=== PATIENT | female | born 2000 | race Two or more races ===

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

== ENCOUNTER 2022-03-11 16:25 | Emergency (ER) | payer OTHER ==
--- OUTSIDE RECORDS SUMMARY | 2022-03-11 16:28 | XMS REPORT | Continuity of Care Document ---
:2000 Author Organization [facility] t Address [address] [place] [address] Care Team Providers Name Role Phone Robert Angelo Attending Clinician Unavailable Payers Payer Name Policy Type Policy Number Effective Date Expiration Date S ource C1 [id number] [facility] (Active Duty) [facility] C1 [id number] [facility] ([facility]) [facility] C1 [id number] [facility] ([facility]) [facility] Problems Condition Condition Condition Status Onset Resolution Last Treating Co mments Source Name Details Category Date Date Treatment Clinician Date BETITO Problem Active Common (generaliz [facility] ed anxiety - [facility] disorder) [facility] [id number] PTSD Problem Active [facility] (post-trau [facility] matic - [facility] stress [facility] disorder) [facility] [id number] Current Problem Active Common moderate [facility] episode of - [facility] prior episode Allergies, Adverse Reactions, Alerts This patient has no known allergies or adverse reactions. Social History Social Habit Start Date Stop Date Quantity Comments Source History of Tobacco Use Co mmon [facility] Sex Assigned At Com mon [facility] Smoking Status Start Date Stop Date Source Never Smoker [facility] Medications Ordered Filled Start Stop Current Ordering Indication Dosage Frequency Signature Comments Components Source Medication Medication Date Date Medication? Clinician (SIG) Name Name Azithromyci Azithromyci 2020-05- QD Azithromyc n 250 MG n 250 MG 05-04 in 250 MG 00:00: 00:00 00 :00 Cymbalta 20 Cymbalta 20 No 1{capsu QD Cymbalta MG MG le} 20 MG DULoxetine DULoxetine No DULoxetine HCl 20 MG HCl 20 MG HCl 20 MG Cymbalta 20 Cymbalta 20 No 1{capsu QD Cymbalta MG MG le} 20 MG Meclizine Meclizine No Meclizine HCl HCl HCl Cymbalta 20 Cymbalta 20 No 1{capsu QD Cymbalta MG MG le} 20 MG Pantoprazol Pantoprazol No Pantoprazo e Sodium e Sodium le Sodium Meclizine Meclizine No Meclizine HCl HCl HCl Cymbalta 20 Cymbalta 20 No 1{capsu QD Cymbalta MG MG le} 20 MG Cymbalta 20 Cymbalta 20 No 1{capsu QD Cymbalta MG MG le} 20 MG DULoxetine DULoxetine No DULoxetine HCl 20 MG HCl 20 MG HCl 20 MG Pantoprazol Pantoprazol No Pantoprazo e Sodium e Sodium le Sodium Cymbalta 20 Cymbalta 20 No 1{capsu QD Cymbalta MG MG le} 20 MG Meclizine Meclizine No Meclizine HCl HCl HCl Cymbalta 20 Cymbalta 20 No 1{capsu QD Cymbalta MG MG le} 20 MG DULoxetine DULoxetine No DULoxetine HCl 20 MG HCl 20 MG HCl 20 MG ProAir HFA ProAir HFA No ProAir HFA Pantoprazol Pantoprazol No Pantoprazo e Sodium e Sodium le Sodium Meloxicam Meloxicam No 1{table QD Meloxicam 7.5 MG 7.5 MG t} 7.5 MG Cymbalta 20 Cymbalta 20 No 1{capsu QD Cymbalta MG MG le} 20 MG Meclizine Meclizine No Meclizine HCl HCl HCl Cymbalta 20 Cymbalta 20 No 1{capsu QD Cymbalta MG MG le} 20 MG DULoxetine DULoxetine No DULoxetine HCl 20 MG HCl 20 MG HCl 20 MG ProAir HFA ProAir HFA No ProAir HFA Pantoprazol Pantoprazol No Pantoprazo e Sodium e Sodium le Sodium Meloxicam Meloxicam No 1{table QD Meloxicam 7.5 MG 7.5 MG t} 7.5 MG Cymbalta 20 Cymbalta 20 No 1{capsu QD Cymbalta MG MG le} 20 MG Meclizine Meclizine No Meclizine HCl HCl HCl Cymbalta 20 Cymbalta 20 No 1{capsu QD Cymbalta MG MG le} 20 MG DULoxetine DULoxetine No DULoxetine HCl 20 MG HCl 20 MG HCl 20 MG ProAir HFA ProAir HFA No ProAir HFA Pantoprazol Pantoprazol No Pantoprazo e Sodium e Sodium le Sodium Meloxicam Meloxicam No 1{table QD Meloxicam 7.5 MG 7.5 MG t} 7.5 MG Cymbalta 20 Cymbalta 20 No 1{capsu QD Cymbalta MG MG le} 20 MG Meclizine Meclizine No Meclizine HCl HCl HCl Cymbalta 20 Cymbalta 20 No 1{capsu QD Cymbalta MG MG le} 20 MG DULoxetine DULoxetine No DULoxetine HCl 20 MG HCl 20 MG HCl 20 MG ProAir HFA ProAir HFA No ProAir HFA Pantoprazol Pantoprazol No Pantoprazo e Sodium e Sodium le Sodium Meloxicam Meloxicam No 1{table QD Meloxicam 7.5 MG 7.5 MG t} 7.5 MG DULoxetine DULoxetine No DULoxetine HCl 20 MG HCl 20 MG HCl 20 MG Meclizine Meclizine No Meclizine HCl HCl HCl Cymbalta 20 Cymbalta 20 No 1{capsu QD Cymbalta MG MG le} 20 MG Pantoprazol Pantoprazol No Pantoprazo e Sodium e Sodium le Sodium Meclizine Meclizine No Meclizine HCl HCl HCl Cymbalta 20 Cymbalta 20 No 1{capsu QD Cymbalta MG MG le} 20 MG Cymbalta 20 Cymbalta 20 No 1{capsu QD Cymbalta MG MG le} 20 MG Pantoprazol Pantoprazol No Pantoprazo e Sodium e Sodium le Sodium DULoxetine DULoxetine No DULoxetine HCl 20 MG HCl 20 MG HCl 20 MG Meclizine Meclizine No Meclizine HCl HCl HCl Cymbalta 20 Cymbalta 20 No 1{capsu QD Cymbalta MG MG le} 20 MG Cymbalta 20 Cymbalta 20 No 1{capsu QD Cymbalta MG MG le} 20 MG Pantoprazol Pantoprazol No Pantoprazo e Sodium e Sodium le Sodium DULoxetine DULoxetine No DULoxetine HCl 20 MG HCl 20 MG HCl 20 MG Meclizine Meclizine No Meclizine HCl HCl HCl Cymbalta 20 Cymbalta 20 No 1{capsu QD Cymbalta MG MG le} 20 MG Pantoprazol Pantoprazol No Pantoprazo e Sodium e Sodium le Sodium DULoxetine DULoxetine No DULoxetine HCl 20 MG HCl 20 MG HCl 20 MG Vital Signs Vital Name Observation Time Observation Value Comments Source height 2021-08-04 08:30:00 62 [in_i] [facility] weight 2021-08-04 08:30:00 129 [lb_av] [facility] temperature 2021-08-04 08:30:00 98.0 [degF] [facility] bmi 2021-08-04 08:30:00 23.59 kg/m2 [facility] blood pressure 2021-08-04 08:30:00 110 mm[Hg] [facility] - systolic [facility] blood pressure 2021-08-04 08:30:00 68 mm[Hg] [facility] - diastolic [facility] height 2021-04-29 11:20:00 62 [in_i] [facility] weight 2021-04-29 11:20:00 117 [lb_av] [facility] bmi 2021-04-29 11:20:00 21.4 kg/m2 [facility] height 2021-02-10 15:10:00 62 [in_i] [facility] weight 2021-02-10 15:10:00 117 [lb_av] [facility] temperature 2021-02-10 15:10:00 98.5 [degF] [facility] bmi 2021-02-10 15:10:00 21.40 kg/m2 [facility] height 2021-01-12 09:10:00 62 [in_i] [facility] weight 2021-01-12 09:10:00 117.1 [lb_av] [facility] temperature 2021-01-12 09:10:00 97.7 [degF] [facility] bmi 2021-01-12 09:10:00 21.42 kg/m2 [facility] oximetry 2021-01-12 09:10:00 98 % [facility] respiratory rate 2021-01-12 09:10:00 16 /min Comm on [facility] blood pressure 2021-01-12 09:10:00 111 mm[Hg] Common [facility] - systolic [facility] blood pressure 2021-01-12 09:10:00 66 mm[Hg] [facility] diastolic [facility] Procedures This patient has no known procedures. Encounters Start End Encounter Admission Attending Care Care Encounter Source Date/Time Date/Time Type Type Clinicians Facility Department ID 2021-10-01 Outpatient Angelo, STLMLC STLMLC [id number] Common 15:41:01 [facility]ly [facility] 2021-07-20 Outpatient Angelo, STLMLC STLMLC [id number] Common 14:35:01 [facility] 2021-06-08 Outpatient Angelo, STLMLC STLMLC [id number] Common 08:16:03 Robert [facility] 2021-05-27 Outpatient Angelo, STLMLC STLMLC [id number] Common 14:04:10 Robert [facility] 2021-05-27 Outpatient Angelo, STLMLC STLMLC [id number] Common 13:58:53 Robert [facility] 2021-05-27 Outpatient Angelo, STLMLC STLMLC [id number] Common 13:49:12 Robert [id number] [facility] 2021-05-27 Outpatient Angelo, STLMLC STLMLC [id number] Common 13:48:18 Robert [id number] [facility] 2021-05-27 Outpatient Angelo, STLMLC STLMLC [id number] Common 13:42:28 Robert [id number] [facility] 2021-05-27 Outpatient STLMLC STLMLC [id number] Common 13:41:33 [id number] [facility] 2021-09-29 2021-09-29 (TEL) STLMLC STLMLC [id number] Co mmon 00:00:00 00:00:00 [facility] 2021-08-13 2021-08-13 (TEL) STLMLC STLMLC [id number] Co mmon 00:00:00 00:00:00 [facility] 2021-08-05 2021-08-05 (TEL) STLMLC STLMLC [id number] Co mmon 00:00:00 00:00:00 [facility] 2021-08-04 2021-08-04 OFFICE STLMLC STLMLC [id number] Co mmon 00:00:00 00:00:00 VISIT NEW Spir it PT LEVEL 3 [facility] 2021-07-03 2021-07-03 (TEL) STLMLC STLMLC [id number] Co mmon 00:00:00 00:00:00 [facility] 2021-04-29 2021-04-29 OFFICE STLMLC STLMLC [id number] Co mmon 00:00:00 00:00:00 VISIT EST Spir it PT LEVEL 3 [facility] 2021-04-28 2021-04-28 (TEL) STLMLC STLMLC [id number] Co mmon 00:00:00 00:00:00 [facility] 2021-02-24 2021-02-24 (TEL) STLMLC STLMLC [id number] Co mmon 00:00:00 00:00:00 [facility] 2021-02-10 2021-02-10 OFFICE [facility] [id number] Co mmon 00:00:00 00:00:00 VISIT EST Spir it PT LEVEL 3 - [facility] 2021-01-12 2021-01-12 PREV VISIT [facility] [id number] Common 00:00:00 00:00:00 EST AGE [facility] 18-39 - [facility] Results Test Description Test Time Test Comments Results Result Comments Source Lipid Panel With LDL/HDL Ratio 2021-01-15 00:00:00 Test Item Value Reference Range Interpretation Comme nts Cholesterol, Total (test code = 3-3) 155 100-169 Triglycerides (test code = 2571-8) 48 0-89 HDL Cholesterol (test code = 5-9) 69 >39 UA/M w/rflx Culture, [id number] 00:00:00 Test Item Value Reference Range Interpretation Comments Specific Damon (test code = 1.023 1.005-1.030 2965-2) pH (test code = 5803-2) 5.0 5.0-7.5 Urine-Color (test code = 5778-6) Yellow Yellow Appearance (test code = 5767-9) Cloudy Clear WBC Esterase (test code = 5799-2) Negative Negative Protein (test code = 50758-0) Negative Negative/Trace Glucose (test code = 2349-9) Negative Negative Ketones (test code = 2514-8) Negative Negative Occult Blood (test code = 5794-3) Negative Negative Bilirubin (test code = 5770-3) Negative Negative Urobilinogen,Semi-Qn (test code = 0.2 0.2-1.0 57704-6) Nitrite, Urine (test code = Negative Negative 5802-4) Microscopic Examination (test code See below: = 03903-5) Urinalysis Reflex (test code = UNLOINC) Hemoglobin [id number] 00:00:00 Test Item Value Reference Range Interpretation Comments Hemoglobin A1c (test code = 4548-4) 5.3 4.8-5.6 Comp. Metabolic Panel (14) (CMP)2021-01-15 00:00:00 Test Item Value Reference Range Interpretation Comments Glucose (test code = 2345-7) 128 65-99 BUN (test code = 3094-0) 5 6-20 Creatinine (test code = 2160-0) 0.66 0.57-1.00 eGFR If NonAfricn Am (test code = 129 >59 93264-1) eGFR If Africn Am (test code = 51290-8) 149 >59 BUN/Creatinine Ratio (test code = 01-22 3097-3) Sodium (test code = 2951-2) 138 134-144 Potassium (test code = 2823-3) 4.3 3.5-5.2 Chloride (test code = 2075-0) 103 96-106 Carbon Dioxide, Total (test code = -2027-) Calcium (test code = 38583-8) 9.3 8.7-10.2 Protein, Total (test code = 2885-2) 7.2 6.0-8.5 Albumin (test code = 1751-7) 4.7 3.9-5.0 Globulin, Total (test code = 73355-6) 2.5 1.5-4.5 A/G Ratio (test code = 1759-0) 1.9 1.2-2.2 Bilirubin, Total (test code = 1975-2) 0.5 0.0-1.2 Alkaline Phosphatase (test code = 70 42-106 6768-6) AST (SGOT) (test code = 1920-8) 14 0-40 ALT (SGPT) (test code = 1742-6) 11 0-32 Uric Acid, [id number] 00:00:00 Test Item Value Reference Range Interpretation Comments Uric Acid (test code = 3084-1) 4.8 2.6-6.2 CBC With Differential/[id number] 00:00:00 Test Item Value Reference Range Interpretation Comments WBC (test code = 6690-2) 7.1 3.4-10.8 RBC (test code = 789-8) 4.46 3.77-5.28 Hemoglobin (test code = 718-7) 12.8 11.1-15.9 Hematocrit (test code = 4544-3) 38.9 34.0-46.6 MCV (test code = 787-2) 87 79-97 MCH (test code = 785-6) 28.7 26.6-33.0 MCHC (test code = 786-4) 32.9 31.5-35.7 RDW (test code = 788-0) 12.1 11.7-15.4 Platelets (test code = 777-3) 296 150-450 Neutrophils (test code = 770-8) 60 Not Estab. Lymphs (test code = 736-9) 30 Not Estab. Monocytes (test code = 5905-5) 4 Not Estab. Eos (test code = 713-8) 5 Not Estab. Basos (test code = 706-2) 1 Not Estab. Immature Cells (test code = UNLOINC) Neutrophils (Absolute) (test code = 4.3 1.4-7.0 751-8) Lymphs (Absolute) (test code = 731-0) 2.1 0.7-3.1 Monocytes(Absolute) (test code = 742-7) 0.3 0.1-0.9 Eos (Absolute) (test code = 711-2) 0.4 0.0-0.4 Baso (Absolute) (test code = 704-7) 0.1 0.0-0.2 Immature Granulocytes (test code = 0 Not Estab. 16618-0) Immature Grans (Abs) (test code = 0.0 0.0-0.1 83226-5) NRBC (test code = 34023-8) Hematology Comments: (test code = 49404-7) TSH reflex to [id number] 00:00:00 Test Item Value Reference Range Interpretation Comments TSH (test code = 34406-2) 1.070 0.450-4.500
[2022-03-11 17:42] LABS: Absolute Lymphocytes (CBC) 1.9 K/uL (0.7-4.9); Hematocrit 38.5 % (36.0-45.0); Lymphocytes % 30.6 % (15.3-44.8); MCV 87.6 fL (80-100); MPV 7.4 fL (7.6-11.3)
[2022-03-11 17:56] LABS: Albumin 3.9 g/dL (3.4-5.0); Bilirubin Total 0.4 mg/dL (0.2-1.0); Potassium 3.8 mmol/L (3.5-5.1); Protein, Total 7.8 g/dL (6.4-8.2)
[2022-03-11] MEDS ORDERED: ONDANSETRON 4 MG/2 ML VIAL ONE (17:57)
[2022-03-11] MEDS ORDERED: NA CHLORIDE 0.9% 1,000 ML ONE (17:57)
[2022-03-11 18:35] LABS: Urine Blood Negative (Negative); Urine Glucose Negative (Negative); Urine Protein Negative (Negative); Urine pH 8.5 (5.0-7.0)
[2022-03-11 18:55] LABS: Urine RBC <5 /HPF (None Seen)
--- NOTE | 2022-03-11 19:27 | EDPHYS ---
Physician Documentation [facility] Name: Sue Perdomo Age: 21 yrs Sex: Female : 2000 Arrival Date: 03/11/2022 Time: 16:28 Bed 24 Private MD: ED Physician Ezequiel Griffiths HPI: 03/11 18:02 This 21 yrs old Female presents to ER via Ambulatory with complaints of Vomiting. snw 18:02 The patient presents to the emergency department with nausea, vomiting. Onset: The snw symptoms/episode began/occurred suddenly, yesterday. The symptoms are aggravated by food . Severity of symptoms: At their worst the symptoms were moderate severe. It is unknown whether or not the patient has had similar symptoms in the past. The patient has not recently seen a physician. 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 - Social history:: Smoking status: Patient denies any tobacco usage or history of. ROS: 17:16 Constitutional: Negative for fever, chills, and weight loss, Eyes: Negative for injury, snw pain, redness, and discharge, ENT: Negative for injury, pain, and discharge, Neck: Negative for injury, pain, and swelling, Cardiovascular: Negative for chest pain, palpitations, and edema, Respiratory: Negative for shortness of breath, cough, wheezing, and pleuritic chest pain, Back: Negative for injury and pain, : Negative for injury, bleeding, discharge, and swelling, MS/Extremity: Negative for injury and deformity, Skin: Negative for injury, rash, and discoloration, Neuro: Negative for headache, weakness, numbness, tingling, and seizure, Psych: Negative for depression, anxiety, suicide ideation, homicidal ideation, and hallucinations. 17:16 Abdomen/GI: Positive for abdominal pain, vomiting. Exam: 17:15 Constitutional: This is a well developed, well nourished patient who is awake, alert, snw and in no acute distress. Head/Face: Normocephalic, atraumatic. Eyes: Pupils equal round and reactive to light, extra-ocular motions intact. Lids and lashes normal. Conjunctiva and sclera are non-icteric and not injected. Cornea within normal limits. Periorbital areas with no swelling, redness, or edema. ENT: Nares patent. No nasal discharge, no septal abnormalities noted. Tympanic membranes are normal and external auditory canals are clear. Oropharynx with no redness, swelling, or masses, exudates, or evidence of obstruction, uvula midline. Mucous membranes moist. Neck: Trachea midline, no thyromegaly or masses palpated, and no cervical lymphadenopathy. Supple, full range of motion without nuchal rigidity, or vertebral point tenderness. No Meningismus. Chest/axilla: Normal chest wall appearance and motion. Nontender with no deformity. No lesions are appreciated. Cardiovascular: Regular rate and rhythm with a normal S1 and S2. No gallops, murmurs, or rubs. Normal PMI, no JVD. No pulse deficits. Respiratory: Lungs have equal breath sounds bilaterally, clear to auscultation and percussion. No rales, rhonchi or wheezes noted. No increased work of breathing, no retractions or nasal flaring. Back: No spinal tenderness. No costovertebral tenderness. Full range of motion. Skin: Warm, dry with normal turgor. Normal color with no rashes, no lesions, and no evidence of cellulitis. MS/ Extremity: Pulses equal, no cyanosis. Neurovascular intact. Full, normal range of motion. Neuro: Awake and alert, GCS 15, oriented to person, place, time, and situation. Cranial nerves II-XII grossly intact. Motor strength 5/5 in all extremities. Sensory grossly intact. Cerebellar exam normal. Normal gait. Psych: Awake, alert, with orientation to person, place and time. Behavior, mood, and affect are within normal limits. 17:15 Abdomen/GI: Inspection: abdomen appears normal, Bowel sounds: normal, Palpation: abdomen is soft and non-tender. Vital Signs: 16:42 BP 115 / 62; Pulse 74; Resp 18; Temp 97.8; Pulse Ox 100% ; Weight 58.97 kg; Height 5 jh5 ft. 3 in. (160.02 cm); 16:53 BP 125 / 77; Pulse 72; Resp 18; Pulse Ox 99% on R/A; kb3 17:30 BP 103 / 64; Pulse 76; Resp 18; Pulse Ox 100% on R/A; kb3 18:30 BP 103 / 59; Pulse 66; Resp 16; Pulse Ox 100% on R/A; kb3 16:42 Body Mass Index 23.03 (58.97 kg, 160.02 cm) jh5 MDM: 16:48 Patient medically screened. snw 16:57 Data reviewed: vital signs, nurses notes. Data interpreted: Pulse oximetry: on room air snw is 100 %. Interpretation: normal. Counseling: I had a detailed discussion with the patient and/or guardian regarding: the historical points, exam findings, and any diagnostic results supporting the discharge/admit diagnosis. ED course: Pt's PCP is Dr. Angelo. 03/11 16:49 Order name: CBC with Diff; Complete Time: 17:45 snw 03/11 16:49 Order name: CMP; Complete Time: 18:01 snw 03/11 16:49 Order name: Lipase; Complete Time: 18:01 snw 03/11 16:49 Order name: Urine Microscopic Only; Complete Time: 18:56 snw 03/11 16:49 Order name: Flu; Complete Time: 18:06 snw 03/11 16:49 Order name: Test, Serum; Complete Time: 17:53 snw 03/11 16:49 Order name: IV Saline Lock; Complete Time: 17:49 snw 03/11 16:49 Order name: Labs collected and sent; Complete Time: 17:49 snw 03/11 18:35 Order name: Urine Dipstick-Ancillary; Complete Time: 18:35 EDMS Administered Medications: 18:11 Drug: NS 0.9% 1000 ml Route: IV; Rate: 1 bolus; Site: right antecubital; kb3 18:58 Follow up: IV Status: Completed infusion; IV Intake: 1000ml kb3 18:11 Drug: Zofran (Ondansetron) 4 mg Route: IVP; Site: right antecubital; kb3 18:58 Follow up: Response: Nausea is decreased kb3 Disposition Summary: 03/11/22 19:27 Discharge Ordered Location: Home snw Condition: Stable snw Diagnosis - Nausea with vomiting, unspecified snw Followup: snw - With: Emergency Department - When: As needed - Reason: Worsening of condition Followup: snw - With: Private Physician - When: 2 - 3 days - Reason: Recheck today's complaints, Continuance of care, Re-evaluation by your physician Discharge Instructions: - Discharge Summary Sheet snw - Nausea and Vomiting, Adult snw - Rehydration, Adult snw - Frio Diet snw Forms: - Work release form snw - Medication Reconciliation Form snw - Thank You Letter snw - Antibiotic Education snw - Prescription Opioid Use snw Prescriptions: - Zofran 4 mg Oral Tablet - take 1 tablet by ORAL route every 8 hours As needed; 20 tablet; Refills: 0, snw Product Selection Permitted Addendum: 03/15/2022 09:00 Co-signature as Attending Physician, Ezequiel Griffiths MD. r n Signatures: Dispatcher [employer] EDMS Quita Orozco, SWITCHBOARD INSPECTOR-C SWITCHBOARD INSPECTOR-Csnw Ezequiel Griffiths MD MD rn Rees, Jessica, RN RN jh5 Nuha Hawley, RN RN kb3
--- NOTE | 2022-03-11 19:27 | ER ---
Nurse's Notes [facility] Name: Sue Perdomo Age: 21 yrs Sex: Female : 2000 Arrival Date: 03/11/2022 Time: 16:28 Bed 24 Private MD: Diagnosis: Nausea with vomiting, unspecified Presentation: 03/11 16:42 Chief complaint: Patient states: vomiting with diarrhea since yesterday, denies fever, jh5 cough, CP. Coronavirus screen: Vaccine status: Patient reports receiving the 2nd dose of the covid vaccine. Client denies travel out of the [place] in the last 14 days. Ebola Screen: Patient negative for fever greater than or equal to 101.5 degrees Fahrenheit, and additional compatible Ebola Virus Disease symptoms Patient denies exposure to infectious person. Patient denies travel to an Ebola-affected area in the 21 days before illness onset. Initial Sepsis Screen: Does the patient meet any 2 criteria? No. Patient's initial sepsis screen is negative. Does the patient have a suspected source of infection? No. Patient's initial sepsis screen is negative. Risk Assessment: Do you want to hurt yourself or someone else? Patient reports no desire to harm self or others. 16:42 Method Of Arrival: Ambulatory [facility] 16:42 Acuity: PRUDENCIO 3 [facility] 17:00 Onset of symptoms was March 10, 2022. 3 Triage Assessment: 16:43 General: Appears in no apparent distress. uncomfortable, slender, well groomed, well jh5 developed, well nourished, Behavior is calm, cooperative, appropriate for age. Pain: Denies pain. GI: Reports diarrhea, nausea, vomiting. 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 - Social history:: Smoking status: Patient denies any tobacco usage or history of. Screenin:00 Abuse screen: Denies threats or abuse. Denies injuries from another. Nutritional 3 screening: No deficits noted. Tuberculosis screening: No symptoms or risk factors identified. Fall Risk None identified. Assessment: 17:00 General: Appears in no apparent distress. uncomfortable, Behavior is calm, cooperative, eh3 appropriate for age. Pain: Complains of pain in abdomen Pain does not radiate. Pain currently is 5 out of 10 on a pain scale. Quality of pain is described as aching, Pain began 1 day ago. Is continuous. Neuro: Level of Consciousness is awake, alert, obeys commands, Oriented to person, place, time, situation. Cardiovascular: Capillary refill < 3 seconds Patient's skin is warm and dry. Respiratory: Airway is patent Respiratory effort is even, unlabored, Respiratory pattern is regular, symmetrical. GI: Abdomen is flat, non-distended, Reports diarrhea, nausea, vomiting, started yesterday. Has not vomited since this morning, tolerated fluids and a light lunch. : No signs and/or symptoms were reported regarding the genitourinary system. EENT: No signs and/or symptoms were reported regarding the EENT system. Derm: No signs and/or symptoms reported regarding the dermatologic system. Musculoskeletal: No signs and/or symptoms reported regarding the musculoskeletal system. 17:30 Reassessment: Patient and/or family updated on plan of care and expected duration. Pain kb3 level reassessed. Patient is alert, oriented x 3, equal unlabored respirations, skin warm/dry/pink. 18:30 Reassessment: Patient and/or family updated on plan of care and expected duration. Pain kb3 level reassessed. Patient is alert, oriented x 3, equal unlabored respirations, skin warm/dry/pink. 19:30 Reassessment: Patient and/or family updated on plan of care and expected duration. Pain eh3 level reassessed. Patient is alert, oriented x 3, equal unlabored respirations, skin warm/dry/pink. Patient states feeling better. Vital Signs: 16:42 BP 115 / 62; Pulse 74; Resp 18; Temp 97.8; Pulse Ox 100% ; Weight 58.97 kg; Height 5 jh5 ft. 3 in. (160.02 cm); 16:53 BP 125 / 77; Pulse 72; Resp 18; Pulse Ox 99% on R/A; kb3 17:30 BP 103 / 64; Pulse 76; Resp 18; Pulse Ox 100% on R/A; kb3 18:30 BP 103 / 59; Pulse 66; Resp 16; Pulse Ox 100% on R/A; kb3 16:42 Body Mass Index 23.03 (58.97 kg, 160.02 cm) 5 ED Course: 16:28 Patient arrived in ED. rg4 16:42 Quita Orozco FNP-C is [facility]. snw 16:42 Ezequiel Griffiths MD is Attending Physician. snw 16:43 Triage completed. 5 16:43 Arm band placed on right wrist. 5 17:00 Patient has correct armband on for positive identification. Bed in low position. Call 3 light in reach. Side rails up X 1. Pulse ox on. NIBP on. Door closed. Noise minimized. Lights dimmed. Warm blanket given. 17:02 Nuha Hawley, RN is Primary Nurse. kb3 17:30 Inserted saline lock: 20 gauge in right antecubital area, using aseptic technique. 3 Blood collected. Administered Medications: 18:11 Drug: NS 0.9% 1000 ml Route: IV; Rate: 1 bolus; Site: right antecubital; kb3 18:58 Follow up: IV Status: Completed infusion; IV Intake: 1000ml kb3 18:11 Drug: Zofran (Ondansetron) 4 mg Route: IVP; Site: right antecubital; kb3 18:58 Follow up: Response: Nausea is decreased kb3 Intake: 18:58 IV: 1000ml; Total: 1000ml. kb3 Outcome: 19:27 Discharge ordered by . snw 20:20 Patient left the ED. 5 Signatures: Quita Orozco FNP-C [employer]-Carol Covarrubias rg4 Nataly Jain 5 Sandi Leija, RN RN 5 Hayley Darby, LARRY RN 3 Nuha Hawley, RN RN 3
[2022-03-11 20:58] VITALS: O2SAT 100
[2022-03-11 21:03] VITALS: BP 103/59
[2022-03-11 21:04] VITALS: TEMP 97.8
== END 2022-03-11 20:20 | disposition home or self-care (01) ==
LOC: ER 16:25
DX: R11.2 Nausea with vomiting, unspecified (principal); D64.9 Anemia, unspecified; J45.909 Unspecified asthma, uncomplicated
CPT/HCPCS: 96361; 85025; 36415; 84703; 83690; 80053; 87804 ×2; 96374; 99284; J7030; J2405; 81003; 81015

== ENCOUNTER 2022-05-04 04:21 | Emergency (ER) | payer OTHER ==
--- OUTSIDE RECORDS SUMMARY | 2022-05-04 04:24 | XMS REPORT | Continuity of Care Document ---
:2000 Author Organization [facility] t Address [address] [place] [address] Care Team Providers Name Role Phone Robert Angelo Attending Clinician Unavailable Payers Payer Name Policy Type Policy Number Effective Date Expiration Date S ource C1 [id number] [facility] (Active Duty) [facility] C1 [id number] [facility] (Active Duty[facility] C1 [id number] [facility] (Active Duty) [facility] Problems Condition Condition Condition Status Onset Resolution Last Treating Co mments Source Name Details Category Date Date Treatment Clinician Date BETITO Problem Active Common (generaliz [facility] ed anxiety - [facility] disorder) [facility] [id number] PTSD Problem Active Common (post-trau Spirit matic - [facility] stress [facility] disorder) [facility] [id number] Current Problem Active Common moderate Spirit episode of - [facility] major [facility] Center prior episode Allergies, Adverse Reactions, Alerts This patient has no known allergies or adverse reactions. Social History Social Habit Start Date Stop Date Quantity Comments Source History of Tobacco Use Co mmon [facility] Sex Assigned At Com mon [facility] Smoking Status Start Date Stop Date Source Never Smoker [facility] Medications Ordered Filled Start Stop Current Ordering [...] Comments Source height 2021-08-04 08:30:00 62 [in_i] [facility] weight 2021-08-04 08:30:00 129 [lb_av] [facility] temperature 2021-08-04 08:30:00 98.0 [degF] [facility] bmi 2021-08-04 08:30:00 23.59 kg/m2 [facility] blood pressure 2021-08-04 08:30:00 110 mm[Hg] [facility] systolic [facility] blood pressure 2021-08-04 08:30:00 68 mm[Hg] [facility] - diastolic [facility] height 2021-04-29 11:20:00 62 [facility]in_i[facility] weight 2021-04-29 11:20:00 117 [lb_av] [facility] bmi 2021-04-29 11:20:00 21.4 kg/m2 [facility] height 2021-02-10 15:10:00 62 [in_i] [facility] weight 2021-02-10 15:10:00 117 [lb_av] [facility] temperature 2021-02-10 15:10:00 98.5 [degF] [facility] bmi 2021-02-10 15:10:00 21.40 kg/m2 [facility] height 2021-01-12 09:10:00 62 [in_i] [facility] weight 2021-01-12 09:10:00 117.1 [lb_av] [facility] temperature 2021-01-12 09:10:00 97.7 [degF] [facility] bmi 2021-01-12 09:10:00 21.42 kg/m2 [facility] oximetry 2021-01-12 09:10:00 98 % [facility] respiratory rate 2021-01-12 09:10:00 16 /min Comm on [facility] blood pressure 2021-01-12 09:10:00 111 mm[Hg] Common [facility] - systolic [facility] blood pressure 2021-01-12 09:10:00 66 mm[Hg] [facility] diastolic [facility] Procedures This patient has no known procedures. Encounters Start End Encounter Admission Attending Care Care Encounter Source Date/Time Date/Time Type Type Clinicians Facility Department ID 2021-10-01 Outpatient Angelo, STLMLC STLMLC [id number] Common 15:41:01 [facility] 2021-07-20 Outpatient Angelo, STLMLC STLMLC [id number] Common 14:35:01 [facility] 2021-06-08 Outpatient Angelo, STLMLC STLMLC [id number] Common 08:16:03 Robert [facility] 2021-05-27 Outpatient Angelo, STLMLC STLMLC [id number] Common 14:04:10 Robert [facility] 2021-05-27 Outpatient Angelo, STLMLC STLMLC [id number] Common 13:58:53 Robert [facility] 2021-05-27 Outpatient Angelo, STLMLC STLMLC [id number] Common 13:49:12 Robert [id number] [facility] 2021-05-27 Outpatient Angelo, STLMLC STLMLC [id number] Common 13:48:18 Robert [id number] [facility] 2021-05-27 Outpatient Angelo, STLMLC STLMLC [id number] Common 13:42:28 Robert [id number] [facility] 2021-05-27 Outpatient STLMLC STLMLC [id number] Common 13:41:33 [id number] [facility] 2021-09-29 2021-09-29 (TEL) STLMLC STLMLC [id number] Co mmon 00:00:00 00:00:00 [facility] 2021-08-13 2021-08-13 (TEL) STLMLC STLMLC [id number] Co mmon 00:00:00 00:00:00 [facility] 2021-08-05 2021-08-05 (TEL) STLMLC STLMLC [id number] Co mmon 00:00:00 00:00:00 [facility] 2021-08-04 2021-08-04 OFFICE STLMLC STLMLC [id number] Co mmon 00:00:00 00:00:00 VISIT NEW Spir it PT LEVEL 3 [facility] 2021-07-03 2021-07-03 (TEL) STLMLC STLMLC [id number] Co mmon 00:00:00 00:00:00 [facility] 2021-04-29 2021-04-29 OFFICE STLMLC STLMLC [id number] Co mmon 00:00:00 00:00:00 VISIT EST Spir it PT LEVEL 3 [facility] 2021-04-28 2021-04-28 (TEL) STLMLC STLMLC [id number] Co mmon 00:00:00 00:00:00 [facility] 2021-02-24 2021-02-24 (TEL) STLMLC STLMLC [id number] Co mmon 00:00:00 00:00:00 [facility] 2021-02-10 2021-02-10 OFFICE [facility] [id number] Co mmon 00:00:00 00:00:00 VISIT EST Spir it PT LEVEL 3 - [facility] 2021-01-12 2021-01-12 PREV VISIT [facility] [id number] Common 00:00:00 00:00:00 EST AGE Spirit 18-39 - [facility] Results Test Description Test Time Test Comments Results Result Comments Source Lipid Panel With LDL/HDL Ratio 2021-01-15 00:00:00 Test Item Value Reference Range Interpretation Comme nts Cholesterol, Total (test code = 3-3) 155 100-169 Triglycerides (test code = 2571-8) 48 0-89 HDL Cholesterol (test code = 5-9) 69 >39 UA/M w/rflx Culture, [id number] 00:00:00 Test Item Value Reference Range Interpretation Comments Specific [place] (test code = 1.023 1.005-1.030 2965-2) pH (test code = 5803-2) 5.0 5.0-7.5 Urine-Color (test code = 5778-6) Yellow Yellow Appearance (test code = 5767-9) Cloudy Clear WBC Esterase (test code = 5799-2) Negative Negative Protein (test code = 76621-6) Negative Negative/Trace Glucose (test code = 2349-9) Negative Negative Ketones (test code = 2514-8) Negative Negative Occult Blood (test code = 5794-3) Negative Negative Bilirubin (test code = 5770-3) Negative Negative Urobilinogen,Semi-Qn (test code = 0.2 0.2-1.0 24551-2) Nitrite, Urine (test code = Negative Negative 5802-4) Microscopic Examination (test code See below: = 49147-8) Urinalysis Reflex (test code = UNLOINC) Hemoglobin [id number] 00:00:00 Test Item Value Reference Range Interpretation Comments Hemoglobin A1c (test code = 4548-4) 5.3 4.8-5.6 Comp. Metabolic Panel (14) (CMP)2021-01-15 00:00:00 Test Item Value Reference Range Interpretation Comments Glucose (test code = 2345-7) 128 65-99 BUN (test code = 3094-0) 5 6-20 Creatinine (test code = 2160-0) 0.66 0.57-1.00 eGFR If NonAfricn Am (test code = 129 >59 17421-7) eGFR If Africn Am (test code = 27746-5) 149 >59 BUN/Creatinine Ratio (test code = 01-22 3097-3) Sodium (test code = 2951-2) 138 134-144 Potassium (test code = 2823-3) 4.3 3.5-5.2 Chloride (test code = 2075-0) 103 96-106 Carbon Dioxide, Total (test code = -2027-) Calcium (test code = 74868-6) 9.3 8.7-10.2 Protein, Total (test code = 2885-2) 7.2 6.0-8.5 Albumin (test code = 1751-7) 4.7 3.9-5.0 Globulin, Total (test code = 30191-3) 2.5 1.5-4.5 A/G Ratio (test code = 1759-0) 1.9 1.2-2.2 Bilirubin, Total (test code = 1975-2) 0.5 0.0-1.2 Alkaline Phosphatase (test code = 70 42-106 6768-6) AST (SGOT) (test code = 1920-8) 14 0-40 ALT (SGPT) (test code = 1742-6) 11 0-32 Uric Acid, [id number] 00:00:00 Test Item Value Reference Range Interpretation Comments Uric Acid (test code = 3084-1) 4.8 2.6-6.2 CBC With Differential/[id number] 00:00:00 Test Item Value Reference Range Interpretation [...] Granulocytes (test code = 0 Not Estab. 43271-7) Immature Grans (Abs) (test code = 0.0 0.0-0.1 52937-3) NRBC (test code = 54459-3) Hematology Comments: (test code = 30470-5) TSH reflex to [id number] 00:00:00 Test Item Value Reference Range Interpretation Comments TSH (test code = 76501-0) 1.070 0.450-4.500
[2022-05-04] MEDS ORDERED: NA CHLORIDE 0.9% 1,000 ML ONE (05:54)
[2022-05-04] MEDS ORDERED: CEFTRIAXONE 1000 MG/VIAL ONE (05:54)
[2022-05-04 06:08] LABS: Urine Blood Trace-intact (Negative); Urine Glucose Negative (Negative); Urine Protein Negative (Negative); Urine Specific Gravity >=1.030 (1.005-1.030)
[2022-05-04 06:31] LABS: Absolute Lymphocytes (CBC) 0.3 K/uL (0.7-4.9); Hematocrit 39.3 % (36.0-45.0); Lymphocytes % 3.4 % (15.3-44.8); MCV 87.4 fL (80-100); MPV 7.4 fL (7.6-11.3); RBC Red Blood Cell Count 4.49 M/uL (3.86-4.86)
[2022-05-04] MEDS ORDERED: AZITHROMYCIN 250 MG TAB ONE (06:56)
[2022-05-04] MEDS ORDERED: ACETAMINOPHEN 500 MG TAB ONE (06:56)
[2022-05-04 07:05] LABS: Bilirubin Total 0.5 mg/dL (0.2-1.0); Potassium 3.4 mmol/L (3.5-5.1); Protein, Total 8.1 g/dL (6.4-8.2)
--- NOTE | 2022-05-04 07:06 | EDPHYS ---
Physician Documentation [facility] Name: Sue Perdomo Age: 22 yrs Sex: Female : 2000 Arrival Date: 05/04/2022 Time: 04:48 Bed 23 Private MD: CARLOS Physician Jonh Perkins HPI: 05/04 06:59 This 22 yrs old Female presents to ER via Ambulatory with complaints of Low laura Back Pain, Fever, General Weakness, Diarrhea, Sore Throat. 06:59 The patient presents with pain that is acute, with no known mechanism of injury, and laura decreased range of motion. The symptoms are located in the low back. The pain does not radiate. The problem was sustained from unknown cause. 07:00 Onset: The symptoms/episode began/occurred 2 day(s) ago. Modifying factors: The patient laura symptoms are alleviated by nothing, the patient symptoms are aggravated by coughing, movement. Associated signs and symptoms: Pertinent positives: fever, headache, weakness. The patient or guardian reports cough, flu symptoms, low-grade fever, myalgias. Modifying factors: The symptoms are alleviated by nothing. Severity of symptoms: At their worst the symptoms were mild, moderate, in the emergency department the symptoms have improved, mildly. Associated signs and symptoms: Pertinent positives: fever, rhinorrhea, sore throat. Severity of symptoms: At their worst the symptoms were moderate. 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 received Moderna booster. - Social history:: Smoking status: Patient denies any tobacco usage or history of. - Family history:: not pertinent. ROS: 07:00 Eyes: Negative for injury, pain, redness, and discharge, Neck: Negative for injury, laura pain, and swelling, Cardiovascular: Negative for chest pain, palpitations, and edema, Abdomen/GI: Negative for abdominal pain, nausea, vomiting, diarrhea, and constipation, : Negative for injury, bleeding, discharge, and swelling, MS/Extremity: Negative for injury and deformity, Skin: Negative for injury, rash, and discoloration, Neuro: Negative for headache, weakness, numbness, tingling, and seizure, Psych: Negative for depression, anxiety, suicide ideation, homicidal ideation, and hallucinations, Allergy/Immunology: Negative for hives, rash, and allergies, Endocrine: Negative for neck swelling, polydipsia, polyuria, polyphagia, and marked weight changes, Hematologic/Lymphatic: Negative for swollen nodes, abnormal bleeding, and unusual bruising. 07:00 Constitutional: Positive for body aches, chills, fatigue, fever, malaise. 07:00 Respiratory: Positive for cough. 07:00 Back: Positive for decreased range of motion, pain at rest, of the lumbar area, left low back and right low back. Exam: 07:00 Head/Face: Normocephalic, atraumatic. Eyes: Pupils equal round and reactive to light, laura extra-ocular motions intact. Lids and lashes normal. Conjunctiva and sclera are non-icteric and not injected. Cornea within normal limits. Periorbital areas with no swelling, redness, or edema. ENT: Nares patent. No nasal discharge, no septal abnormalities noted. Tympanic membranes are normal and external auditory canals are clear. Oropharynx with no redness, swelling, or masses, exudates, or evidence of obstruction, uvula midline. Mucous membranes moist. Neck: Trachea midline, no thyromegaly or masses palpated, and no cervical lymphadenopathy. Supple, full range of motion without nuchal rigidity, or vertebral point tenderness. No Meningismus. Chest/axilla: Normal chest wall appearance and motion. Nontender with no deformity. No lesions are appreciated. Cardiovascular: Regular rate and rhythm with a normal S1 and S2. No gallops, murmurs, or rubs. Normal PMI, no JVD. No pulse deficits. Respiratory: Lungs have equal breath sounds bilaterally, clear to auscultation and percussion. No rales, rhonchi or wheezes noted. No increased work of breathing, no retractions or nasal flaring. Abdomen/GI: Soft, non-tender, with normal bowel sounds. No distension or tympany. No guarding or rebound. No evidence of tenderness throughout. Skin: Warm, dry with normal turgor. Normal color with no rashes, no lesions, and no evidence of cellulitis. MS/ Extremity: Pulses equal, no cyanosis. Neurovascular intact. Full, normal range of motion. Neuro: Awake and alert, GCS 15, oriented to person, place, time, and situation. Cranial nerves II-XII grossly intact. Motor strength 5/5 in all extremities. Sensory grossly intact. Cerebellar exam normal. Normal gait. 07:00 Back: pain, that is mild, of the lumbar area, left low back and right low back. Vital Signs: 05:35 BP 124 / 73; Pulse 127; Resp 20; Temp 98.9; Pulse Ox 98% ; Weight 58.97 kg; Height 5 rv1 ft. 3 in. (160.02 cm); Pain 8/10; 06:49 BP 114 / 76; Pulse 111; Resp 16 S; Temp 100(O); Pulse Ox 99% on R/A; bb 05:35 Body Mass Index 23.03 (58.97 kg, 160.02 cm) rv1 MDM: 05:31 Patient medically screened. [facility] 07:02 Antibiotic administration: The patient is discharged and will get outpatient [facility] antibiotics, Zithromax. Differential Diagnosis: Bronchitis Influenza Upper Respiratory Infection Sinusitis Pharyngitis Viral Syndrome Pneumonia. Data reviewed: vital signs, nurses notes, lab test result(s), radiologic studies, CT scan. Data interpreted: pbx wire chief: rate is 111 beats/min, rhythm is regular, Pulse oximetry: on room air is 99 %. Counseling: I had a detailed discussion with the patient and/or guardian regarding: the historical points, exam findings, and any diagnostic results supporting the discharge/admit diagnosis, lab results, radiology results, the need for outpatient follow up, for definitive care, a family practitioner. 05/04 05:34 Order name: CBC with Diff; Complete Time: 06:49 laura 05/04 05:34 Order name: Comprehensive Metabolic Panel; Complete Time: 07:06 [facility] 05/04 05:34 Order name: Urine Culture [facility] 05/04 05:34 Order name: Blood Culture Adult (2) [facility] 05/04 06:08 Order name: Urine Dipstick-Ancillary; Complete Time: 06:10 EDMS 05/04 06:11 Order name: Urine --Ancillary (enter results) mw2 05/04 05:34 Order name: Urine Dipstick-Ancillary (obtain specimen); Complete Time: 05:49 [facility] 05/04 05:34 Order name: CT Stone Protocol [facility] 05/04 05:34 Order name: Urine Test (obtain specimen); Complete Time: 05:49 laura Administered Medications: 06:48 Drug: NS 0.9% 1000 ml Route: IV; Rate: 1 bolus; Site: right antecubital; bb 07:19 Follow up: IV Status: Order to discontinue infusion; IV Intake: 800ml bb 06:48 Drug: Rocephin (cefTRIAXone) 1 grams Route: IV; Rate: per protocol; Site: right bb antecubital; 06:52 Drug: Tylenol 1000 mg Route: PO; bb 07:18 Follow up: Response: No adverse reaction bb 06:52 Drug: Zithromax (azithromycin) 500 mg Route: PO; bb 07:19 Follow up: Response: No adverse reaction bb 07:11 Drug: Potassium Effervescent Tablet 25 mEq Route: PO; bb 07:19 Follow up: Response: Medication administered at discharge. bb Disposition Summary: 05/04/22 07:05 Discharge Ordered Location: Home [facility] Problem: new laura Symptoms: have improved laura Condition: Stable laura Diagnosis - Fever, unspecified laura - Acute upper respiratory infection, unspecified laura - Cough laura - Hypokalemia laura Followup: laura - With: Private Physician - When: 2 - 3 days - Reason: Recheck today's complaints, Continuance of care, Re-evaluation by your physician Discharge Instructions: - Discharge Summary Sheet laura - Potassium Content of Foods laura - Fever, Adult laura - Cool Mist Vaporizer laura - Upper Respiratory Infection, Adult, Wmll-[id number]-Ipwm laura - Cough, Adult, Nkut-xj-Uegm laura - Cough, Adult laura - Fever, Adult, Qtij-xm-Tgck laura - Hypokalemia laura Forms: - Medication Reconciliation Form laura - Thank You Letter laura - Antibiotic Education laura - Prescription Opioid Use [facility] - Work release form Prescriptions: - Zofran 4 mg Oral Tablet - take 1 tablet by ORAL route every 12 hours As needed; 20 tablet; Refills: 0, laura Product Selection Permitted - Zithromax Z-Jian 250 mg Oral Tablet - take 1 tablet by ORAL route as directed for 5 days Day 1 - take two (2) tablets laura one time. Day 2, 3, 4 , 5 take one (1) tablet once daily.; 6 tablet; Refills: 0, Product Selection Permitted - Tamiflu 75 mg Oral Capsule - take 1 tablet by ORAL route every 12 hours for 5 days; 10 tablet; Refills: 0, laura Product Selection Permitted Signatures: Dispatcher [employer] Jonh Kaufman MD MD cha Ballard, Brenda, RN RN bb
--- NOTE | 2022-05-04 07:06 | ER ---
Nurse's Notes [facility] Name: Sue Perdomo Age: 22 yrs Sex: Female : 2000 Arrival Date: 05/04/2022 Time: 04:48 Bed 23 Private MD: Diagnosis: Fever, unspecified;Acute upper respiratory infection, unspecified;Cough;Hypokalemia Presentation: 05/04 05:45 Chief complaint: Patient states: she is feeling really sick went to Urgent Care 2 days bb ago and was negative for flu and covid. Coronavirus screen: Client presents with at least one sign or symptom that may indicate coronavirus-19. Ebola Screen: No symptoms or risks identified at this time. Initial Sepsis Screen: Does the patient meet any 2 criteria? No. Patient's initial sepsis screen is negative. Does the patient have a suspected source of infection? No. Patient's initial sepsis screen is negative. Risk Assessment: Do you want to hurt yourself or someone else? Patient reports no desire to harm self or others. Onset of symptoms was May 02, 2022. 05:45 Method Of Arrival: Ambulatory bb 05:45 Acuity: PRUDENCIO 3 bb Triage Assessment: 05:46 General: Appears in no apparent distress. Behavior is calm, cooperative. Pain: bb Complains of pain in back. Neuro: Level of Consciousness is awake, alert, obeys commands, Oriented to person, place, time, situation. Cardiovascular: Capillary refill < 3 seconds Patient's skin is warm and dry. Respiratory: Respiratory effort is even, unlabored, Respiratory pattern is regular. GI: Abdomen is round. Derm: Skin is pink, warm \T\ dry. Musculoskeletal: Circulation, motion, and sensation intact. 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 received Moderna booster. - Social history:: Smoking status: Patient denies any tobacco usage or history of. - Family history:: not pertinent. Screenin:49 [facility] ED Fall Risk Assessment (Adult) History of falling in the last 3 months, bb including since admission No falls in past 3 months (0 pts) Confusion or Disorientation No (0 pts) Intoxicated or Sedated No (0 pts) Impaired Gait No (0 pts) Score/Fall Risk Level 0 - 2 = Low Risk Oriented to surroundings. Abuse screen: Denies threats or abuse. Nutritional screening: No deficits noted. Tuberculosis screening: No symptoms or risk factors identified. Assessment: 05:49 Reassessment: No changes from previously documented assessment. Patient is alert, bb oriented x 3, equal unlabored respirations, skin warm/dry/pink. see triage assessment. 06:48 Reassessment: Patient is alert, oriented x 3, equal unlabored respirations, skin bb warm/dry/pink. IV site intact, patent with fluids infusing, family at bedside. 07:25 Reassessment: Patient is alert, oriented x 3, equal unlabored respirations, skin bb warm/dry/pink. pt verbalized understanding of and agrees to plan of care discharge instructions given pt ambulated with steady gait to exit accompanied by spouse. Vital Signs: 05:35 BP 124 / 73; Pulse 127; Resp 20; Temp 98.9; Pulse Ox 98% ; Weight 58.97 kg; Height 5 rv1 ft. 3 in. (160.02 cm); Pain 8/10; 06:49 BP 114 / 76; Pulse 111; Resp 16 S; Temp 100(O); Pulse Ox 99% on R/A; bb 05:35 Body Mass Index 23.03 (58.97 kg, 160.02 cm) rv1 ED Course: 04:48 Patient arrived in ED. jj6 05:31 Jonh Perkins MD is Attending Physician. laura 05:46 Triage completed. bb 05:46 Arm band placed on Patient placed in an exam room, on a stretcher, on pulse oximetry. bb Family accompanied patient. 05:49 Patient has correct armband on for positive identification. Placed in gown. Bed in low bb position. Call light in reach. Side rails up X 1. Adult w/ patient. Pulse ox on. NIBP on. 06:20 CBC with Diff Sent. rv1 06:20 Comprehensive Metabolic Panel Sent. rv1 06:21 Blood Culture Adult (2) Sent. rv1 06:21 Inserted saline lock: 20 gauge in right antecubital area, using aseptic technique. rv1 Blood collected. 06:35 CBC with Diff Sent. rv1 06:35 Comprehensive Metabolic Panel Sent. rv1 06:35 Blood Culture Adult (2) Sent. rv1 06:38 CT Stone Protocol In Process Unspecified. EDMO 07:18 Mayela Giron, RN is Primary Nurse. bb 07:26 No provider procedures requiring assistance completed. IV discontinued, intact, bb bleeding controlled, No redness/swelling at site. Pressure dressing applied. Administered Medications: 06:48 Drug: NS 0.9% 1000 ml Route: IV; Rate: 1 bolus; Site: right antecubital; bb 07:19 Follow up: IV Status: Order to discontinue infusion; IV Intake: 800ml bb 06:48 Drug: Rocephin (cefTRIAXone) 1 grams Route: IV; Rate: per protocol; Site: right bb antecubital; 06:52 Drug: Tylenol 1000 mg Route: PO; bb 07:18 Follow up: Response: No adverse reaction bb 06:52 Drug: Zithromax (azithromycin) 500 mg Route: PO; bb 07:19 Follow up: Response: No adverse reaction bb 07:11 Drug: Potassium Effervescent Tablet 25 mEq Route: PO; bb 07:19 Follow up: Response: Medication administered at discharge. bb Medication: 05:49 VIS not applicable for this client. bb Intake: 07:19 IV: 800ml; Total: 800ml. bb Outcome: 07:05 Discharge ordered by . laura 07:26 Discharged to home ambulatory, with family. bb 07:26 Condition: stable 07:26 Discharge instructions given to patient, Instructed on discharge instructions, follow up and referral plans. medication usage, Demonstrated understanding of instructions, follow-up care, medications, Prescriptions given X 3. 07:26 Patient left the ED. bb Signatures: Dispatcher [employer] Jonh Kaufman MD MD cha Ballard, Brenda, RN RN Shanda Durán Rebecca rv1
[2022-05-04] MEDS ORDERED: POTASSIUM 25 MEQ EFFERV TAB ONE (07:17)
[2022-05-04 07:33] VITALS: BP 114/76; TEMP 100; O2SAT 99
[2022-05-04 08:03] LABS: Urine Specific Gravity/Preg >1.030 (1.005-1.030)
--- NOTE | 2022-05-04 12:11 | RAD REPORT ---
EXAM DESCRIPTION: CT - Stone Protocol - 05/04/2022 7:08 am COMPARISON: CT abdomen and pelvis July 03, 2021 CLINICAL HISTORY: [facility] MAIN flank TECHNIQUE: CT of the abdomen and pelvis was acquired without IV contrast material. Coronal and sag ittal reconstructions were obtained. Automated exposure control was utilized on this examination as a dose lowering technique. FINDINGS: Lung bases: Clear. *Evaluation of solid organs is limited due to lack of IV contrast. Liver: Normal. Gallbladder and biliary: Normal gallbladder. Unremarkable biliary tree. Pancreas: Normal. Spleen: Normal. Adrenal glands: Normal adrenal glands. Kidneys: Normal kidneys Stomach and Small Bowel: The stomach and small bowel are normal. Urinary bladder: Normal. Uterus and Adnexa: Normal. Colon and Appendix: The colon is unremarkable. No evidence of appendicitis. Retroperitoneum and lymph nodes: Normal. Vascular: Unremarkable. Peritoneal cavity: Trace pelvic fluid is likely physiologic. Musculoskeletal and soft tissues: Soft tissues are unremarkable. No aggressive bone lesions. No com pression fracture. IMPRESSION: No acute intra-abdominal abnormality. 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 The interpreting radiologist is fully responsible for the content of the report.
== END 2022-05-04 07:26 | disposition home or self-care (01) ==
LOC: ER 04:21
DX: J06.9 Acute upper respiratory infection, unspecified (principal); E87.6 Hypokalemia; R05.9 Cough, unspecified; Z88.8 Allergy status to other drugs, medicaments and biological substances; Z91.013 Allergy to seafood; Z91.018 Allergy to other foods
CPT/HCPCS: 87040 ×2; 87088; 85025; 87086; 36415; 81025; 81003; 80053; 76377; 74176; Q0144; J7030; 96361; 96374; 99284

== ENCOUNTER 2022-11-05 18:02 | Emergency (ER) | payer OTHER ==
--- OUTSIDE RECORDS SUMMARY | 2022-11-05 18:15 | XMS REPORT | Continuity of Care Document ---
:2000 Author Organization [facility] t Address [address] [place] [address] Care Team Providers Name Role Phone FOUND, PCP NOT Primary Care Physician Unavailable Onelia Ellsworth Attending Clinician Unavailable Robert Angelo Attending Clinician Unavailable PUSHPA REED Attending Clinician Unavailable Payers Payer Name Policy Type Policy Number Effective Date Expiration Date S ource C1 [id number] [facility] ([facility] Duty) [facility] Medic [facility] Center C1 [id number] [facility] (Active [facility]) [facility] Medic [facility] C1 [id number] [facility] (Active Duty) [facility] Medic al Center Problems Condition Condition Condition Status Onset Resolution Last Treating Co mments Source Name Details Category Date Date Treatment Clinician Date [id number] BETITO Problem Common (generaliz [facility] ed anxiety - [facility] disorder) [facility] [id number] PTSD Problem Common (post-trau Spirit matic - [facility] stress [facility] disorder) [facility] [id number] Current Problem Common moderate [facility] episode of - [facility] major [facility] depressive [facility] disorder Medical without Center prior episode Allergies, Adverse Reactions, Alerts This patient has no known allergies or adverse reactions. Social History Social Habit Start Date Stop Date Quantity Comments Source History of Tobacco Use Co mmon [facility] Sex Assigned At Com mon [facility] Smoking Status Start Date Stop Date Source Never Smoker Common [facility] Medications Ordered Filled Start Stop Current Ordering Indication Dosage Frequency Signature Comments Components Source Medication Medication Date Date Medication? Clinician (SIG) Name Name Justin Anderson 2020-05- No QD Azithromyc n 250 MG n 250 [...] Meclizine Meclizine No Meclizine HCl HCl HCl Vital Signs Vital Name Observation Time Observation Value Comments Source height 2021-08-04 08:30:00 62 [in_i] [facility] weight 2021-08-04 08:30:00 129 [lb_av] [facility] temperature 2021-08-04 08:30:00 98.0 [degF] [facility] bmi 2021-08-04 08:30:00 23.59 kg/m2 Common S pirit [facility] blood pressure 2021-08-04 08:30:00 110 mm[Hg] [facility] - systolic [facility] blood pressure 2021-08-04 08:30:00 68 mm[Hg] [facility] - diastolic [facility] height 2021-04-29 11:20:00 62 [in_i] Common [facility] weight 2021-04-29 11:20:00 117 [lb_av] Common [facility] bmi 2021-04-29 11:20:00 21.4 kg/m2 Common [facility] height 2021-02-10 15:10:00 62 [in_i] [facility] weight 2021-02-10 15:10:00 117 [lb_av] [facility] temperature 2021-02-10 15:10:00 98.5 [degF] [facility] bmi 2021-02-10 15:10:00 21.40 kg/m2 [facility] height 2021-01-12 09:10:00 62 [in_i] [facility] weight 2021-01-12 09:10:00 117.1 [lb_av] [facility] temperature 2021-01-12 09:10:00 97.7 [degF] [facility] bmi 2021-01-12 09:10:00 21.42 kg/m2 [facility] oximetry 2021-01-12 09:10:00 98 % [facility] respiratory rate 2021-01-12 09:10:00 16 /min Comm on [facility] blood pressure 2021-01-12 09:10:00 111 mm[Hg] Common [facility] - systolic [facility] blood pressure 2021-01-12 09:10:00 66 mm[Hg] [facility] - diastolic [facility] height 2020-12-22 14:20:00 62 [in_i] [facility] weight 2020-12-22 14:20:00 116.7 [lb_av] [facility] temperature 2020-12-22 14:20:00 98.1 [degF] [facility] bmi 2020-12-22 14:20:00 21.34 kg/m2 [facility] oximetry 2020-12-22 14:20:00 100 % [facility] respiratory rate 2020-12-22 14:20:00 16 /min Comm on [facility] blood pressure 2020-12-22 14:20:00 112 mm[Hg] Common [facility] systolic [facility] blood pressure 2020-12-22 14:20:00 66 mm[Hg] [facility] diastolic [facility] Procedures This patient has no known procedures. Encounters Start End Encounter Admission Attending Care Care Encounter Source Date/Time Date/Time Type Type Clinicians Facility Department ID 2022-09-08 Outpatient Ellsworth, STLMLC STLMLC [id number] Common 14:46:01 Onelia 19019 [facility] 2022-07-05 Outpatient Ellsworth, STLMLC STLMLC [id number] Common 11:18:01 Onelia 19089 [facility] 2021-10-01 Outpatient Angelo, STLMLC STLMLC [id number] Common 15:41:01 [facility] 2021-07-20 Outpatient Angelo, STLMLC STLMLC [id number] Common 14:35:01 Robert [facility] 2021-06-08 Outpatient Angelo, STLMLC STLMLC [id number] Common 08:16:03 Robert [facility] 2021-05-27 Outpatient Angelo, STLMLC STLMLC [id number] Common 14:04:10 Robert [facility] 2021-05-27 Outpatient Angelo, STLMLC STLMLC [id number] Common 13:58:53 Robert 87712 [facility] 2021-05-27 Outpatient Angelo, STLMLC STLMLC [id number] Common 13:49:12 Robert 20196 [facility] 2021-05-27 Outpatient Angelo, STLMLC STLMLC [id number] Common 13:48:18 Robert 02357 [facility] 2021-05-27 Outpatient Angelo, STLMLC STLMLC [id number] Common 13:42:28 Robert 27926 [facility] 2021-05-27 Outpatient STLMLC STLMLC [id number] Common 13:41:33 [id number] [facility] 2022-11-04 2022-11-04 Emergency ER BRIANNA, [facility] [id number] CHRISTU 07:13:00 13:12:00 PUSHPA [id number] [facility] 2022-11-04 2022-11-04 emergency [id number] 07:13:00 13:12:00 [id number] [facility] 2021-09-29 2021-09-29 (TEL) STLMLC STLMLC [id number] Co mmon 00:00:00 00:00:00 [facility] 2021-08-13 2021-08-13 (TEL) STLMLC STLMLC [id number] Co mmon 00:00:00 00:00:00 [facility] 2021-08-05 2021-08-05 (TEL) STLMLC STLMLC [id number] Co mmon 00:00:00 00:00:00 [facility] 2021-08-04 2021-08-04 OFFICE STLMLC STLMLC [id number] Co mmon 00:00:00 00:00:00 VISIT [facility] PT LEVEL 3 [facility] 2021-07-03 2021-07-03 (TEL) STLMLC STLMLC [id number] Co mmon 00:00:00 00:00:00 [facility] 2021-04-29 2021-04-29 OFFICE STLMLC STLMLC [id number] Co mmon 00:00:00 00:00:00 VISIT EST Spir it PT LEVEL 3 [facility] 2021-04-28 2021-04-28 (TEL) STLMLC STLMLC [id number] Co mmon 00:00:00 00:00:00 [facility] 2021-02-24 2021-02-24 (TEL) STLMLC STLMLC [id number] Co mmon 00:00:00 00:00:00 [facility] 2021-02-10 2021-02-10 OFFICE STLMLC STLMLC [id number] Co mmon 00:00:00 00:00:00 VISIT EST Spir it PT LEVEL 3 [facility] 2021-01-12 2021-01-12 PREV VISIT STLMLC STLMLC [id number] Common 00:00:00 00:00:00 EST AGE Spirit 18-39 - [facility] 2020-12-22 2020-12-22 OFFICE STLMLC STLMLC [id number] Co mmon 00:00:00 00:00:00 VISIT NEW Spir it PT LEVEL [address] [place] [address] Results Test Description Test Time Test Comments Results Result Comments Source Lipid Panel With LDL/HDL Ratio 2021-01-15 00:00:00 Test Item Value Reference Range Interpretation Comme nts Cholesterol, Total (test code = 2093-3) 155 100-169 Triglycerides (test code = 2571-8) 48 0-89 HDL Cholesterol (test code = 2085-9) 69 >39 UA/M w/rflx Culture, [id number] 00:00:00 Test Item Value Reference Range Interpretation Comments Specific [place] (test code = 1.023 1.005-1.030 2965-2) pH (test code = 5803-2) 5.0 5.0-7.5 Urine-Color (test code = 5778-6) Yellow Yellow Appearance (test code = 5767-9) Cloudy Clear WBC Esterase (test code = 5799-2) Negative Negative Protein (test code = 39324-6) Negative Negative/Trace Glucose (test code = 2349-9) Negative Negative Ketones (test code = 2514-8) Negative Negative Occult Blood (test code = 5794-3) Negative Negative Bilirubin (test code = 5770-3) Negative Negative Urobilinogen,Semi-Qn (test code = 0.2 0.2-1.0 73808-2) Nitrite, Urine (test code = Negative Negative 5802-4) Microscopic Examination (test code See below: = 63757-3) Urinalysis Reflex (test code = UNLOINC) Hemoglobin [id number] 00:00:00 Test Item Value Reference Range Interpretation Comments Hemoglobin A1c (test code = 4548-4) 5.3 4.8-5.6 Comp. Metabolic Panel (14) ([facility])2021-01-15 00:00:00 Test Item Value Reference Range Interpretation Comments Glucose (test code = 2345-7) 128 65-99 BUN (test code = 3094-0) 5 6-20 Creatinine (test code = 2160-0) 0.66 0.57-1.00 eGFR If NonAfricn Am (test code = 129 >59 47418-2) eGFR If Africn Am (test code = 02476-3) 149 >59 BUN/Creatinine Ratio (test code = 01-22 3097-3) Sodium (test code = 2951-2) 138 134-144 Potassium (test code = 2823-3) 4.3 3.5-5.2 Chloride (test code = 2075-0) 103 96-106 Carbon Dioxide, Total (test code = 24 -2028-01) Calcium (test code = 16343-5) 9.3 8.7-10.2 Protein, Total (test code = 2885-2) 7.2 6.0-8.5 Albumin (test code = 1751-7) 4.7 3.9-5.0 Globulin, Total (test code = 09291-4) 2.5 1.5-4.5 A/G Ratio (test code = 1758-0) 1.9 1.2-2.2 Bilirubin, Total (test code = 1974-2) 0.5 0.0-1.2 Alkaline Phosphatase (test code = 70 42-106 6768-6) AST (SGOT) (test code = 1920-8) 14 0-40 ALT (SGPT) (test code = 1742-6) 11 0-32 Uric Acid, [id number] 00:00:00 Test Item Value Reference Range Interpretation Comments Uric Acid (test code = 3084-1) 4.8 2.6-6.2 CBC With Differential/[id number] 00:00:00 Test Item Value Reference Range Interpretation [...] Granulocytes (test code = 0 Not Estab. 59875-5) Immature Grans (Abs) (test code = 0.0 0.0-0.1 86985-8) NRBC (test code = 46054-0) Hematology Comments: (test code = 63536-4) TSH reflex to [id number] 00:00:00 Test Item Value Reference Range Interpretation Comments TSH (test code = 36188-3) 1.070 0.450-4.500
[2022-11-05] MEDS ORDERED: KETOROLAC 30 MG/ML INJ ONE (19:37)
[2022-11-05] MEDS ORDERED: ONDANSETRON 4 MG/2 ML VIAL ONE (19:38)
[2022-11-05] MEDS ORDERED: FAMOTIDINE 20 MG/2 ML VIAL IV ONE (19:38)
[2022-11-05] MEDS ORDERED: NA CHLORIDE 0.9% 1,000 ML ONE (19:38)
[2022-11-05 19:45] LABS: Hematocrit 41.8 % (36.0-45.0); MCV 89.1 fL (80-100); MPV 7.4 fL (7.6-11.3); RBC Red Blood Cell Count 4.69 M/uL (3.86-4.86)
[2022-11-05 19:46] LABS: Urine Bacteria <20 /HPF (<20); Urine Mucus Slight /HPF (None Seen); Urine RBC <5 /HPF (None Seen)
[2022-11-05 19:52] LABS: Albumin 4.4 g/dL (3.4-5.0); Bilirubin Total 0.6 mg/dL (0.2-1.0); Potassium 3.3 mEq/L (3.5-5.1)
[2022-11-05 19:53] LABS: Lymphocytes % 25.6 % (15.3-44.8)
[2022-11-05 19:57] LABS: Specific Gravity 1.014 (1.005-1.030); Urine Bilirubin NEGATIVE (Negative); Urine Blood Trace (Negative); Urine Clarity Turbid (Clear); Urine Color Colorless (Yellow); Urine Glucose NEGATIVE (Negative); Urine Protein NEGATIVE (Negative); Urine Urobilinogen Normal (Normal)
[2022-11-05 19:58] LABS: Specific Gravity 0.014 (1.005-1.030)
[2022-11-05] MEDS ORDERED: POTASSIUM CL SA 10 MEQ TAB PO ONE (22:05)
[2022-11-05] MEDS ORDERED: POTASSIUM 25 MEQ EFFERV TAB ONE (22:07)
--- NOTE | 2022-11-05 22:12 | RAD REPORT ---
EXAM DESCRIPTION: US - Abdomen Exam Limited - 11/05/2022 8:46 pm CLINICAL HISTORY: ABD PAIN COMPARISON: Stone Protocol dated 05/04/2022 TECHNIQUE: Sonographic grayscale and color flow images of the right upper quadrant were obtained. FINDINGS: The gallbladder demonstrates no gallstones. No pericholecystic fluid or gallbladder wall t hickening. The common bile duct is normal measuring 3 mm. The liver demonstrates no findings of intrahepatic biliary dilatation. IMPRESSION: Unremarkable right upper abdominal quadrant ultrasound.
--- NOTE | 2022-11-05 22:48 | ER ---
Nurse's Notes [facility] Name: Sue Perdomo Age: 22 yrs Sex: Female : 2000 Arrival Date: 11/05/2022 Time: 18:02 Bed 11 Private MD: Diagnosis: Upper abdominal pain, unspecified;Nausea with vomiting, unspecified Presentation: 11/05 18:19 Chief complaint: Patient states: Nausea, vomiting, \T\ diarrhea. Coronavirus screen: os Vaccine status: Patient reports receiving the 2nd dose of the covid vaccine. na At this time, the client does not indicate any symptoms associated with coronavirus-19. Ebola Screen: Patient denies travel to an Ebola-affected area in the 21 days before illness onset. Initial Sepsis Screen: Does the patient meet any 2 criteria? No. Patient's initial sepsis screen is negative. Does the patient have a suspected source of infection? No. Patient's initial sepsis screen is negative. Risk Assessment: Do you want to hurt yourself or someone else? Patient reports no desire to harm self or others. Onset of symptoms was November 03, 2022. 18:19 Method Of Arrival: Ambulatory os 18:19 Acuity: PRUDENCIO 3 os Triage Assessment: 18:20 General: Appears uncomfortable, Behavior is calm, cooperative, appropriate for age. os Pain: Complains of pain in left lower quadrant and abdomen diffusely. Neuro: No deficits noted. Cardiovascular: No deficits noted. Respiratory: No deficits noted. GI: Reports diarrhea, nausea, vomiting. Historical: - Allergies: 19:40 eel; cm10 19:40 steroids; cm10 19:40 walnuts; cm10 - PMHx: 19:40 Anemia; Asthma; eating disorder; cm10 - Immunization history:: Adult Immunizations unknown. - Social history:: Smoking status: unknown. Screenin:45 [facility] ED Fall Risk Assessment (Adult) History of falling in the last 3 months, cm10 including since admission No falls in past 3 months (0 pts) Confusion or Disorientation No (0 pts) Intoxicated or Sedated No (0 pts) Impaired Gait No (0 pts) Mobility Assist Device Used No (0 pt) Altered Elimination No (0 pt) Score/Fall Risk Level 0 - 2 = Low Risk Oriented to surroundings, Maintained a safe environment, Hourly rounding (assess needs \T\ fall precautionary measures) done. Abuse screen: Denies threats or abuse. Denies injuries from another. Nutritional screening: No deficits noted. Tuberculosis screening: No symptoms or risk factors identified. Assessment: 19:45 Reassessment: No changes from previously documented assessment. Neuro: No deficits cm10 noted. Level of Consciousness is awake, alert, Oriented to person, place, time, situation. Respiratory: No deficits noted. Airway is patent Respiratory effort is even, unlabored, Respiratory pattern is regular, symmetrical. GI: Abdomen is flat. Derm: No deficits noted. Skin is intact, Skin is pink, warm \T\ dry. 22:05 Reassessment: No changes from previously documented assessment. Patient and/or family cm10 updated on plan of care and expected duration. Pain level reassessed. Patient is alert, oriented x 3, equal unlabored respirations, skin warm/dry/pink. Patient states feeling better. Patient states symptoms have improved. Vital Signs: 18:19 BP 133 / 71; Pulse 88; Resp 19; Temp 98.4; Pulse Ox 98% ; Weight 58.97 kg; os 23:12 BP 103 / 87; Pulse 59; Resp 16; Pulse Ox 100% on R/A; cm10 ED Course: 18:03 Patient arrived in ED. am2 18:08 Eve Miles FNP-C is PHCP. kb 18:08 Ezequiel Griffiths MD is Attending Physician. kb 18:20 Triage completed. os 18:52 PHCP role handed off by Eve Miles FNP-C kb 18:52 Jonh Valentine PA is PHCP. kb 19:26 Initial lab(s) drawn, by tn, sent to lab. Inserted saline lock: 22 gauge in right jw7 antecubital area, using aseptic technique. Blood collected. 19:26 CBC with Diff Sent. jw7 19:26 CMP Sent. jw7 19:26 Lipase Sent. jw7 19:26 Test, Urine Sent. jw7 19:26 Urinalysis w/ reflexes Sent. jw7 19:27 Tamiko Almendarez, RN is Primary Nurse. cm10 19:27 Urine collected: clean catch specimen, clear. jw7 19:40 Arm band placed on Patient placed in an exam room, on a stretcher. cm10 19:46 Patient has correct armband on for positive identification. Bed in low position. Call cm10 light in reach. Side rails up X2. Pulse ox on. NIBP on. Door closed. Noise minimized. Warm blanket given. 20:48 US Abdomen Limited: gallbladder In Process Unspecified. EDMS 23:12 No provider procedures requiring assistance completed. IV discontinued, intact, cm10 bleeding controlled, No redness/swelling at site. Pressure dressing applied. Administered Medications: 19:40 Drug: NS 0.9% IV 1000 ml Route: IV; Rate: 1 bolus; Site: right antecubital; cm10 21:04 Follow up: Response: No adverse reaction; IV Status: Completed infusion; IV Intake: cm10 1000ml 19:40 Drug: Famotidine IVP 20 mg Route: IVP; Site: right antecubital; cm10 21:04 Follow up: Response: No adverse reaction; Pain is decreased cm10 19:40 Drug: TORadol - Ketorolac IVP 15 mg Route: IVP; Site: right antecubital; cm10 21:04 Follow up: Response: No adverse reaction; Pain is decreased cm10 19:40 Drug: Ondansetron IVP 4 mg Route: IVP; Site: right antecubital; cm10 21:04 Follow up: Response: No adverse reaction cm10 22:03 Drug: Potassium PO Effervescent Tablet 50 mEq Route: PO; cm10 Medication: 19:46 VIS not applicable for this client. cm10 Intake: 21:04 IV: 1000ml; Total: 1000ml. cm10 Outcome: 22:47 Discharge ordered by . matt 23:13 Discharged to home ambulatory. cm10 23:13 Condition: good 23:13 Discharge instructions given to patient, Instructed on discharge instructions, follow up and referral plans. medication usage, Demonstrated understanding of instructions, follow-up care, medications, Prescriptions given X 2. 23:14 Patient left the ED. cm10 Signatures: Dispatcher [employer] EDMS Eve Miles, MARIEC ZINC MINER BLASTING-Jonh Vo PA PA cp Moreno, Amanda am2 Marry Navarro jw7 Nazanin Gilliam, RN RN Tamiko Joseph RN RN cm10
--- NOTE | 2022-11-05 22:48 | EDPHYS ---
Physician Documentation [facility] Name: Sue Perdomo Age: 22 yrs Sex: Female : 2000 Arrival Date: 11/05/2022 Time: 18:02 Bed 11 Private MD: ED Physician Ezequiel Griffiths HPI: 11/05 18:19 This 22 yrs old [place] Female presents to ER via Unassigned with complaints of kb Nausea/Vomiting/Diarrhea, Doesn't Feel Right. 18:19 The patient presents to the emergency department with nausea, vomiting, diarrhea. kb Onset: The symptoms/episode began/occurred 2 day(s) ago. Possible causes: unknown. The symptoms are aggravated by nothing. The symptoms are alleviated by nothing. Associated signs and symptoms: Pertinent positives: abdominal pain, diarrhea, nausea, vomiting, Pertinent negatives: fever. Severity of symptoms: At their worst the symptoms were mild moderate in the emergency department the symptoms are unchanged. The patient has not experienced similar symptoms in the past. The patient has not recently seen a physician. Pt reports she was in [place] and started having vomiting and diarrhea 2 days ago. States she was seen at an ER there, had CT abd/pelvis and was sent home with pepcid and zofran. Reports she is still unable to tolerate anything by mouth . Historical: - Allergies: 19:40 eel; cm10 19:40 steroids; cm10 19:40 walnuts; cm10 - PMHx: 19:40 Anemia; Asthma; eating disorder; cm10 - Immunization history:: Adult Immunizations unknown. - Social history:: Smoking status: unknown. ROS: 18:18 Constitutional: Negative for fever, chills, and weight loss, Eyes: Negative for injury, kb pain, redness, and discharge, Cardiovascular: Negative for chest pain, palpitations, and edema, Respiratory: Negative for shortness of breath, cough, wheezing, and pleuritic chest pain, MS/Extremity: Negative for injury and deformity, Skin: Negative for injury, rash, and discoloration, Neuro: Negative for headache, weakness, numbness, tingling, and seizure. 18:18 Abdomen/GI: Positive for abdominal pain, nausea, vomiting, and diarrhea. Exam: 18:18 Constitutional: This is a well developed, well nourished patient who is awake, alert, kb and in no acute distress. Head/Face: Normocephalic, atraumatic. ENT: Moist Mucous membranes Cardiovascular: Regular rate and rhythm with a normal S1 and S2. No gallops, murmurs, or rubs. No pulse deficits. Respiratory: Respirations even and unlabored. No increased work of breathing. Talking in full sentences Skin: Warm, dry with normal turgor. Normal color. MS/ Extremity: Pulses equal, no cyanosis. Neurovascular intact. Full, normal range of motion. Neuro: Awake and alert, GCS 15, oriented to person, place, time, and situation. Moves all extremities. Normal gait. 18:18 Abdomen/GI: Inspection: abdomen appears normal, Bowel sounds: normal, Palpation: soft, in all quadrants, mild abdominal tenderness, in the left lower quadrant. Vital Signs: 18:19 BP 133 / 71; Pulse 88; Resp 19; Temp 98.4; Pulse Ox 98% ; Weight 58.97 kg; os 23:12 BP 103 / 87; Pulse 59; Resp 16; Pulse Ox 100% on R/A; cm10 MDM: 18:08 Patient medically screened. kb 18:19 Differential diagnosis: Nonspecific abd pain, gastritis, diverticulitis, viral kb gastroenteritis, colitis, electrolyte abnormality, dehydration. Data reviewed: vital signs, nurses notes. 18:51 Transition of care: After a detail discussion of the patient's case, care is kb transferred to Jonh SMITH. 22:13 Counseling: I had a detailed discussion with the patient and/or guardian regarding: the cp historical points, exam findings, and any diagnostic results supporting the discharge/admit diagnosis, lab results, to return to the emergency department if symptoms worsen or persist or if there are any questions or concerns that arise at home. 22:13 Special discussion: Based on the patient's Hx, exam, and Dx evaluation, there is no cp indication for emergent surgery or inpatient Tx. It is understood by the patient/guardian that if the Sx's persist or worsen they need to return immediately for re-evaluation. 11/05 18:18 Order name: CBC with Diff; Complete Time: 19:59 kb 11/05 20:00 Interpretation: Normal except: MPV 7.4. cp 11/05 18:18 Order name: CMP; Complete Time: 19:59 kb 11/05 20:00 Interpretation: Normal except: K 3.3; TP 9.0; GLOB 4.6; A/G 1.0. cp 11/05 18:18 Order name: Lipase; Complete Time: 19:59 kb 11/05 18:18 Order name: Test, Urine; Complete Time: 19:59 kb 11/05 18:18 Order name: Urinalysis w/ reflexes; Complete Time: 19:59 kb 11/05 20:00 Interpretation: Normal except: UCLA Turbid; UBLD Trace. cp 11/05 19:59 Order name: US Abdomen Limited: gallbladder; Complete Time: 22:13 cp 11/05 18:18 Order name: IV Saline Lock; Complete Time: 19:26 kb 11/05 18:18 Order name: Labs collected and sent; Complete Time: 19:26 kb 11/05 21:51 Order name: PO challenge; Complete Time: 22:17 cp Administered Medications: 19:40 Drug: NS 0.9% IV 1000 ml Route: IV; Rate: 1 bolus; Site: right antecubital; cm10 21:04 Follow up: Response: No adverse reaction; IV Status: Completed infusion; IV Intake: cm10 1000ml 19:40 Drug: Famotidine IVP 20 mg Route: IVP; Site: right antecubital; cm10 21:04 Follow up: Response: No adverse reaction; Pain is decreased cm10 19:40 Drug: TORadol - Ketorolac IVP 15 mg Route: IVP; Site: right antecubital; cm10 21:04 Follow up: Response: No adverse reaction; Pain is decreased cm10 19:40 Drug: Ondansetron IVP 4 mg Route: IVP; Site: right antecubital; cm10 21:04 Follow up: Response: No adverse reaction cm10 22:03 Drug: Potassium PO Effervescent Tablet 50 mEq Route: PO; cm10 Disposition Summary: 11/05/22 22:47 Discharge Ordered Location: Home cp Problem: an ongoing problem cp Symptoms: have improved cp Condition: Stable cp Diagnosis - Upper abdominal pain, unspecified cp - Nausea with vomiting, unspecified cp Followup: cp - With: Private Physician - When: 2 - 3 days - Reason: Recheck today's complaints Discharge Instructions: - Discharge Summary Sheet cp - Abdominal Pain, Adult cp - Nausea and Vomiting, Adult cp Forms: - Medication Reconciliation Form cp - Thank You Letter cp - Antibiotic Education cp - Prescription Opioid Use cp - [email or web address] cp Prescriptions: - Pepcid 20 mg Oral Tablet - take 1 tablet by ORAL route every 12 hours for 10 days; 20 tablet; Refills: 0, cp Product Selection Permitted - promethazine 25 mg Oral Tablet - take 1 tablet by ORAL route every 6 hours As needed; 20 tablet; Refills: 0, cp Product Selection Permitted Addendum: 11/08/2022 10:47 Co-signature as Attending Physician, Ezequiel Griffiths MD I reviewed the patient's care r n provided by the Advanced Practice Provider and agree with the diagnosis and treatment plan. Signatures: Dispatcher [employer] EDEve Beckwith, ER MANAGER-C ER MANAGER-Ckb Ezequiel Griffiths MD MD rn Jonh Valentine PA PA cp Martinez, Clarissa, RN RN cm10
[2022-11-05 23:58] VITALS: TEMP 98.4
[2022-11-06 00:31] VITALS: BP 103/87; O2SAT 100
== END 2022-11-05 23:14 | disposition home or self-care (01) ==
LOC: ER 18:02
DX: R10.10 Upper abdominal pain, unspecified (principal); R11.2 Nausea with vomiting, unspecified; Z88.8 Allergy status to other drugs, medicaments and biological substances; Z91.013 Allergy to seafood; Z91.018 Allergy to other foods
CPT/HCPCS: 96361; 85025; 81001; 36415; 81025; 83690; 80053; 76705; 96375; 96374; 99284; J2405; J7030

== ENCOUNTER 2022-12-13 01:22 | Emergency (ER) | payer OTHER ==
--- OUTSIDE RECORDS SUMMARY | 2022-12-13 01:26 | XMS REPORT | Continuity of Care Document ---
:2000 Author Organization [facility] t Address [address] [place] [address] Care Team Providers Name Role Phone FOUND, PCP NOT Primary Care Physician Unavailable Onelia Ellsworth Attending Clinician Unavailable Robert Angelo Attending Clinician Unavailable CURT CADE Attending Clinician Unavailable SIMON LERMA Attending Clinician Unavailable SIMON LERMA Attending Clinician Unavailable Mackenzie Crump MD Attending Clinician Alyssia CARPENTER SUPERVISORCurt Perry Attending Clinician [facility], [facility] Eeg Attending Clinician Unavailable Simon Lerma MD Attending Clinician 2, Adc Lab Attending Clinician Unavailable Doctor Unassigned, Scalp Level Attending Clinician Unavailable Lab, Ang - Db Attending Clinician Unavailable PUSHPA REED Attending Clinician Unavailable SIMON LERMA Admitting Clinician Unavailable Payers Payer Name Policy Type Policy Number Effective Date Expiration Date [facility] [id number] 2022 00:00:00 C1 [id number] [facility] ([facility] kes [facility] C1 [id number] [facility] ([facility] kes [facility] C1 [id number] [facility] (Active Duty) [facility] Medic al Center Problems Condition Condition Condition Status Onset Resolution Last Treating Co mments Source Name Details Category Date Date Treatment Clinician Date [id number] BETITO Problem Common (generaliz Spirit ed anxiety - CHI disorder) [facility] [id number] PTSD Problem Common (post-trau Spirit matic - [facility] stress [facility] disorder) [facility] [id number] Current Problem Common moderate Spirit episode of - [facility] major [facility] depressive [facility] disorder Medical without Center prior episode Allergies, Adverse Reactions, Alerts Allergy Allergy Status Severity Reaction(s) Onset Inactive Treating Comm ents Source Name Type Date Date Clinician NO KNOWN Drug Active Univers ALLERGIE Class ity of S [facility] Social History Social Habit Start Date Stop Date Quantity Comments Source History of Tobacco [facility] - Use [facility] Gender identity Universit [facility] Sexual orientation Univer sity [facility] Tobacco use and 2022-11-12 2022-11-12 Smokeless Universit y of exposure 00:00:00 00:00:00 tobacco non-user [facility] History of Social 2022-11-12 2022-11-12 Univers ity of function 00:00:00 00:00:00 [facility] Sex Assigned At [birth year] Universit y of 00:00:00 00:00:00 [facility] Smoking Status Start Date Stop Date Source Never smoked tobacco [facility] Medications Ordered Filled Start Stop Current Ordering Indication Dosage Frequency Signature Comments Components Source Medication Medication Date Date Medication? Clinician (SIG) Name Name gadobenate 2022- No [id number] .2mL/kg 13.28 mL Univers dimeglumine 11-23 (0.2 mL/kg i ty of (MULTIHANCE 19:15: 19:05 ?66.4 kg), [place] -10 mL) 00 :00 Intravenou Medica l injection s, ONCE, 1 Bran ch 13.28 mL dose, On Tue11/23/22 at 1415, Routine proMETHazin Yes 25mg Take 1 Univ ers e 25 mg 7-20 tablet by ity of tablet 08:56: mouth [place] [id number] every 4 Medical (four) Branch hours as needed. proMETHazin Yes 25mg Take 1 Univ ers e 25 mg 7-20 tablet by ity of tablet 08:56: mouth [place] 51 every 4 Medical (four) Branch hours as needed. proMETHazin 2023-0 Yes 25mg Take 1 Univ ers e 25 mg 7-20 tablet by ity of tablet 08:56: mouth [place] 51 every 4 Medical (four) Branch hours as needed. proMETHazin 2023-0 Yes 25mg Take 1 Univ ers e 25 mg 7-20 tablet by ity of tablet 08:56: mouth [place] 51 every 4 Medical (four) Branch hours as needed. proMETHazin 2023-0 Yes 25mg Take 1 Univ ers e 25 mg 7-20 tablet by ity of tablet 08:56: mouth [place] 51 every 4 Medical (four) Branch hours as needed. proMETHazin 2023-0 Yes 25mg Take 1 Univ ers e 25 mg 7-20 tablet by ity of tablet 08:56: mouth [place] 51 every 4 Medical (four) Branch hours as needed. proMETHazin 2023-0 Yes 25mg Take 1 Univ ers e 25 mg 7-20 tablet by ity of tablet 08:56: mouth [place] 51 every 4 Medical (four) Branch hours as needed. proMETHazin 2023-0 Yes 25mg Take 1 Univ ers e 25 mg 7-20 tablet by ity of tablet 08:56: mouth [place] 51 every 4 Medical (four) Branch hours as needed. proMETHazin 2023-0 Yes 25mg Take 1 Univ ers e 25 mg 7-20 tablet by ity of tablet 08:56: mouth [place] 51 every 4 Medical (four) Branch hours as needed. proMETHazin 2023-0 Yes 25mg Take 1 Univ ers e 25 mg 7-20 tablet by ity of tablet 08:56: mouth [place] 51 every 4 Medical (four) Branch hours as needed. ondansetron 2023-0 Yes 8mg Take 1 Univ ers (ZOFRAN) 8 7-20 tablet by ity of mg tablet 08:56: mouth [place] 36 every 8 Medical (eight) Branch hours as needed. ondansetron 2023-0 Yes 8mg Take 1 Univ ers (ZOFRAN) 8 7-20 tablet by ity of mg tablet 08:56: mouth [place] 36 every 8 Medical (eight) Branch hours as needed. ondansetron 2023-0 Yes 8mg Take 1 Univ ers (ZOFRAN) 8 7-20 tablet by ity of mg tablet 08:56: mouth [place] 36 every 8 Medical (eight) Branch hours as needed. ondansetron 2023-0 Yes 8mg Take 1 Univ ers (ZOFRAN) 8 7-20 tablet by ity of mg tablet 08:56: mouth [place] 36 every 8 Medical (eight) Branch hours as needed. ondansetron 2023-0 Yes 8mg Take 1 Univ ers (ZOFRAN) 8 7-20 tablet by ity of mg tablet 08:56: mouth [place] 36 every 8 Medical (eight) Branch hours as needed. ondansetron 2023-0 Yes 8mg Take 1 Univ ers (ZOFRAN) 8 7-20 tablet by ity of mg tablet 08:56: mouth [place] 36 every 8 Medical (eight) Branch hours as needed. ondansetron 2023-0 Yes 8mg Take 1 Univ ers (ZOFRAN) 8 7-20 tablet by ity of mg tablet 08:56: mouth [place] 36 every 8 Medical (eight) Branch hours as needed. ondansetron 2023-0 Yes 8mg Take 1 Univ ers (ZOFRAN) 8 7-20 tablet by ity of mg tablet 08:56: mouth [place] 36 every 8 Medical (eight) Branch hours as needed. ondansetron 2023-0 Yes 8mg Take 1 Univ ers (ZOFRAN) 8 7-20 tablet by ity of mg tablet 08:56: mouth [place] 36 every 8 Medical (eight) Branch hours as needed. ondansetron 2023-0 Yes 8mg Take 1 Univ ers (ZOFRAN) 8 7-20 tablet by ity of mg tablet 08:56: mouth [place] 36 every 8 Medical (eight) Branch hours as needed. FAMOTIDINE 2023-0 2023- No Take by Uni vers ORAL 7-20 07-20 mouth 2 ity of 08:56: 00:00 (two) [place] 27 :00 times Medical daily. Branch FAMOTIDINE 2023-0 2023- No Take by Uni vers ORAL 7-20 07-20 mouth 2 ity of 08:56: 00:00 (two) [place] 27 :00 times Medical daily. Branch norgestimat 2023-0 Yes [id number] 1{tbl} Take 1 Univers e-ethinyl 7-20 tablet by ity o f estradioL 00:00: [place] ([place]TH[place] 00 the Medical TRI-CYCLEN morning. Bran h LO, 28,) 0.18/0.215/ 0.25 mg-25 mcg tablet norgestimat 2023-0 Yes [id number] 1{tbl} Take 1 Univers e-ethinyl 7-20 tablet by ity o f estradioL 00:[place]: [place] ([place]TH[place] 00 the Medical TRI-CYCLEN morning. Bran h LO, 28,) 0.18/0.215/ 0.25 mg-25 mcg tablet norgestimat 2023-0 Yes [id number] 1{tbl} Take 1 Univers e-ethinyl 7-20 tablet by ity o f estradioL 00:00: [place] ([place]THO 00 the Medical TRI-CYCLEN morning. Bran h LO, 28,) 0.18/0.215/ 0.25 mg-25 mcg tablet norgestimat 2023-0 Yes [id number] 1{tbl} Take 1 Univers e-ethinyl 7-20 tablet by ity o f estradioL 00:00: [place] ([place]THO 00 the Medical TRI-CYCLEN morning. Bran h LO, 28,) 0.18/0.215/ 0.25 mg-25 mcg tablet norgestimat 2023-0 Yes [id number] 1{tbl} Take 1 Univers e-ethinyl 7-20 tablet by ity o f estradioL 00:00: [place] (ORTHO 00 the Medical TRI-CYCLEN morning. Bran h LO, 28,) 0.18/0.215/ 0.25 mg-25 mcg tablet norgestimat 2023-0 Yes [id number] 1{tbl} Take 1 Univers e-ethinyl 7-20 tablet by ity o f estradioL 00:00: [place] (ORTHO 00 the Medical TRI-CYCLEN morning. Bran h LO, 28,) 0.18/0.215/ 0.25 mg-25 mcg tablet norgestimat 2023-0 Yes [id number] 1{tbl} Take 1 Univers e-ethinyl 7-20 tablet by ity o f estradioL 00:00: [place] ([place]THO 00 the Medical TRI-CYCLEN morning. Bran h LO, 28,) 0.18/0.215/ 0.25 mg-25 mcg tablet norgestimat 2023-0 Yes [id number] 1{tbl} Take 1 Univers e-ethinyl 7-20 tablet by ity o f estradioL 00:00: [place] (ORTHO 00 the Medical TRI-CYCLEN morning. Branc h LO, 28,) 0.18/0.215/ 0.25 mg-25 mcg tablet norgestimat 2023-0 Yes [id number] 1{tbl} Take 1 Univers e-ethinyl 7-20 tablet by ity o f estradioL 00:00: [place] (ORTHO 00 the Medical TRI-CYCLEN morning. Bran h LO, 28,) 0.18/0.215/ 0.25 mg-25 mcg tablet norgestimat 2023-0 Yes [id number] 1{tbl} Take 1 Univers e-ethinyl 7-20 tablet by ity o f estradioL 00:00: [place] (ORTHO 00 the Medical TRI-CYCLEN morning. Bran h LO, 28,) 0.18/0.215/ 0.25 mg-25 mcg tablet FAMOTIDINE 2023-0 Yes Take by [employer] ers ORAL 7-14 mouth 2 ity of 08:19: (two) [place] 18 times Medical daily. Branch FAMOTIDINE 2023-0 Yes Take by [employer] ers ORAL 7-14 mouth 2 ity of 08:19: (two) [place] 18 times Medical daily. Branch FAMOTIDINE 2023-0 Yes Take by Univ ers ORAL 7-14 mouth 2 ity of 08:19: (two) [place] 18 times Medical daily. Branch FAMOTIDINE 2023-0 Yes Take by Univ ers ORAL 7-14 mouth 2 ity of 08:19: (two) [place] 18 times Medical daily. Branch FAMOTIDINE 2023-0 Yes Take by Univ ers ORAL 7-14 mouth 2 ity of 08:19: (two) [place] 18 times Medical daily. Branch FAMOTIDINE 2023-0 Yes Take by Univ ers ORAL 7-14 mouth 2 ity of 08:19: (two) [place] 18 times Medical daily. Branch FAMOTIDINE 2023-0 Yes Take by Univ ers ORAL 7-14 mouth 2 ity of 08:19: (two) [place] 18 times Medical daily. Branch levETIRAcet 2022-0 Yes [id number] 500mg Take 1 Univers am (KEPPRA) 7-14 tablet by ity of 500 mg 00:00: mouth in [place] tablet 00 the Medical morning Branch and 1 tablet in the evening. levETIRAcet 2022-0 Yes [id number] 500mg Take 1 Univers am (KEPPRA) 7-14 tablet by ity of 500 mg 00:00: mouth in [place] tablet 00 the Medical morning Branch and 1 tablet in the evening. levETIRAcet 2022-0 Yes [id number] 500mg Take 1 Univers am (KEPPRA) 7-14 tablet by ity of 500 mg 00:00: mouth in [place] tablet 00 the [facility] morning Branch and 1 tablet in the evening. levETIRAcet 2022-0 Yes [id number] 500mg Take 1 Univers am (KEPPRA) 7-14 tablet by ity of 500 mg 00:00: mouth in [place] tablet 00 the [facility] and 1 tablet in the evening. levETIRAcet 2022-0 Yes [id number] 500mg Take 1 Univers am (KEPPRA) 7-14 tablet by ity of 500 mg 00:00: mouth in [place] tablet 00 the [facility] morning [place] and 1 tablet in the evening. levETIRAcet 2022-0 Yes [id number] 500mg Take 1 Univers am (KEPPRA) 7-14 tablet by ity of 500 mg 00:00: mouth in [place] tablet 00 the [facility] and 1 tablet in the evening. levETIRAcet 2022-0 Yes [id number] 500mg Take 1 Univers am (KEPPRA) 7-14 tablet by ity of 500 mg 00:00: mouth in [place] tablet 00 the Medical morning [place] and 1 tablet in the evening. levETIRAcet 2022-0 Yes [id number] 500mg Take 1 Univers am (KEPPRA) 7-14 tablet by ity of 500 mg 00:00: mouth in [place] tablet 00 the [facility] and 1 tablet in the evening. levETIRAcet 2022-0 Yes [id number] 500mg Take 1 Univers am (KEPPRA) 7-14 tablet by ity of 500 mg 00:00: mouth in [place] tablet 00 the [facility] and 1 tablet in the evening. levETIRAcet 2022-0 Yes [id number] 500mg Take 1 Univers am (KEPPRA) 7-14 tablet by ity of 500 mg 00:00: mouth in [place] tablet 00 the Medical morning Branch and 1 tablet in the evening. levETIRAcet 2022-0 Yes [id number] 500mg Take 1 Univers am (KEPPRA) 7-14 tablet by ity of 500 mg 00:00: mouth in [place] tablet 00 the Medical morning Branch and 1 tablet in the evening. levETIRAcet 2022-0 Yes [id number] 500mg Take 1 Univers am (KEPPRA) 7-14 tablet by ity of 500 mg 00:00: mouth in [place] tablet 00 the Medical morning Branch and 1 tablet in the evening. levETIRAcet 2022-0 Yes [id number] 500mg Take 1 Univers am (KEPPRA) 7-14 tablet by ity of 500 mg 00:00: mouth in [place] tablet 00 the Medical morning Branch and 1 tablet in the evening. levETIRAcet 2022-0 Yes [id number] 500mg Take 1 Univers am (KEPPRA) 7-14 tablet by ity of 500 mg 00:00: mouth in [place] tablet 00 the Medical morning Branch and 1 tablet in the evening. levETIRAcet 2022-0 Yes [id number] 500mg Take 1 Univers am (KEPPRA) 7-14 tablet by ity of 500 mg 00:00: mouth in [place] tablet 00 the Medical morning Branch and 1 tablet in the evening. levETIRAcet 2022-0 Yes [id number] 500mg Take 1 Univers am (KEPPRA) 7-14 tablet by ity of 500 mg 00:00: mouth in [place] tablet 00 the Medical morning Branch and 1 tablet in the evening. levETIRAcet 2022-0 Yes [id number] 500mg Take 1 Univers am (KEPPRA) 7-14 tablet by ity of 500 mg 00:00: mouth in [place] tablet 00 the Medical morning Branch and 1 tablet in the evening. Azithromyci Azithromyci 2020-05- No QD Azithromyc n 250 MG [...] Name Observation Time Observation Value Comments Source Body temperature 2022-12-09 19:17:00 36.61 [facility] Body height 2022-12-09 19:17:00 157.5 cm [facility] Body weight 2022-12-09 19:17:00 66.225 kg [facility] BMI 2022-12-09 19:17:00 26.70 kg/m2 [facility] Systolic blood 2022-11-18 13:47:00 110 mm[Hg] [facility] Diastolic blood 2022-11-18 13:47:00 75 mm[Hg] [facility] [place] Heart rate 2022-11-18 13:47:00 73 /min [facility] Body temperature 2022-11-18 13:47:00 36.67 [facility] Respiratory rate 2022-11-18 13:47:00 19 /[facility] Body height 2022-11-18 13:47:00 158.8 cm [facility] [place] [facility] [place] Body weight 2022-11-18 13:47:00 66.361 kg Universi ty of [facility] BMI 2022-11-18 13:47:00 26.33 kg/m2 Universi ty of [facility] Oxygen saturation in 2022-11-18 13:47:00 98 /min University Arterial blood by [facility] Pulse oximetry Branch Systolic blood 2022-11-12 13:16:00 111 mm[Hg] Univer sity of pressure [facility] Diastolic blood 2022-11-12 13:16:00 76 mm[Hg] Unive rsity of pressure [facility] Heart rate 2022-11-12 13:16:00 77 /min Universi ty of [facility] Respiratory rate 2022-11-12 13:16:00 18 /min Univ ersity of [facility] Body height 2022-11-12 13:16:00 160 cm Universi ty of [facility] Body weight 2022-11-12 13:16:00 66.18 kg Universi ty of [facility] BMI 2022-11-12 13:16:00 25.85 kg/m2 Universi ty of [facility] height 2021-08-04 08:30:00 62 [in_i] Common [facility] weight 2021-08-04 08:30:00 129 [lb_av] [facility] temperature 2021-08-04 08:30:00 98.0 [degF] [facility] bmi 2021-08-04 08:30:00 23.59 kg/m2 Common [facility] blood pressure 2021-08-04 08:30:00 110 mm[Hg] [facility] - systolic [facility] blood pressure 2021-08-04 08:30:00 68 mm[Hg] [facility] - diastolic [facility] height 2021-04-29 11:20:00 62 [in_i] Common [facility] weight 2021-04-29 11:20:00 117 [lb_av] Common [facility] bmi 2021-04-29 11:20:00 21.4 kg/m2 Common [facility] height 2021-02-10 15:10:00 62 [in_i] Common [facility] weight 2021-02-10 15:10:00 117 [lb_av] [facility] temperature 2021-02-10 15:10:00 98.5 [degF] Common [facility] bmi 2021-02-10 15:10:00 21.40 kg/m2 [facility] height 2021-01-12 09:10:00 62 [in_i] [facility] weight 2021-01-12 09:10:00 117.1 [lb_av] [facility] temperature 2021-01-12 09:10:00 97.7 [degF] [facility] bmi 2021-01-12 09:10:00 21.42 kg/m2 [facility] oximetry 2021-01-12 09:10:00 98 % [facility] respiratory rate 2021-01-12 09:10:00 16 /min Comm on [facility] blood pressure 2021-01-12 09:10:00 111 mm[Hg] [facility] - systolic [facility] blood pressure 2021-01-12 09:10:00 66 mm[Hg] Common [facility] - diastolic [facility] height 2020-12-22 14:20:00 62 [in_i] [facility] weight 2020-12-22 14:20:00 116.7 [lb_av] [facility] temperature 2020-12-22 14:20:00 98.1 [degF] [facility] bmi 2020-12-22 14:20:00 21.34 kg/m2 [facility] oximetry 2020-12-22 14:20:00 100 % Common S pirit - [facility] respiratory rate 2020-12-22 14:20:00 16 /min Comm on [facility] blood pressure 2020-12-22 14:20:00 112 mm[Hg] Common [facility] - systolic [facility] blood pressure 2020-12-22 14:20:00 66 mm[Hg] Common [facility] - diastolic [facility] Procedures Procedure Date / Time Performing Clinician Source Performed US HEAD NECK 2022-11-24 15:07:00 Curt Cade [facility] MR BRAIN W WO CONTRAST 2022-11-23 19:10:00 Simon [facility]a [facility] WITH DIFF 2022-11-18 14:24:00 Curt Cade [facility] VACCINATION OF A MINOR 2022-11-18 13:37:19 Doctor Unassigned, No General acute hospital POCT TEST 2022-11-18 00:00:00 Curt Cade [facility] Encounters Start End Encounter Admission Attending Care Care Encounter Source Date/Time Date/Time Type Type Clinicians Facility Department ID 2022-09-08 Outpatient Ell[place], STLMLC STLMLC [id number] Common 14:46:01 Onelia 30107 [facility] 2022-07-05 Outpatient Ellsworth, STLMLC STLMLC [id number] Common 11:18:01 Onelia 88891 [facility] 2021-10-01 Outpatient Angelo, STLMLC STLMLC [id number] Common 15:41:01 Robert [facility] 2021-07-20 Outpatient Angelo, STLMLC STLMLC [id number] Common 14:35:01 Robert [facility] 2021-06-08 Outpatient Angelo, STLMLC STLMLC [id number] Common 08:16:03 Robert [facility] 2021-05-27 Outpatient Angelo, STLMLC STLMLC [id number] Common 14:04:10 Robert [facility] 2021-05-27 Outpatient Angelo, STLMLC [facility] [id number] Common 13:58:53 Robert 42527 [facility] 2021-05-27 Outpatient Angelo, STLMLC [facility] [id number] Common 13:49:12 Robert 42211 [facility] 2021-05-27 Outpatient Angelo, STLMLC [facility] [id number] Common 13:48:18 Robert 57398 [facility] 2021-05-27 Outpatient Angelo, STLMLC [facility] [id number] Common 13:42:28 Robert 23849 [facility] 2021-05-27 Outpatient STLMLC [facility] [id number] Common 13:41:33 13247 [facility] 2023-02-17 2023-02-17 Outpatient Akua CADE [facility] [id number] Univers 09:00:00 09:00:00 CURT brown [facility] 2023-01-07 2023-01-07 Outpatient SIMON JACQUES [facility] [id number] Univers 08:00:00 08:00:[address] [facility] 2022-12-10 2022-12-10 Outpatient SIMON JACQUES [facility] [id number] Univers 09:00:00 09:00:[address] [facility] 2022-12-09 2022-12-09 [facility] [id number] [id number] Univers 14:15:00 14:30:00 Visit Mackenzie AKBAR [id number] i ty of [facility] [place].2.686 [place] [id number] [address] 2022-12-09 2022-12-09 Outpatient Akua CRUMP [facility] [id number] Univers 14:15:00 14:15:00 MACKENZIE brown [facility] 2022-11-29 2022-11-29 Adeline Cade [facility] [id number] [facility] 00:00:00 00:00:00 Curt PARTIDAJAYCE [id number] i ty of [facility] 4.2.[place].2.686 [place] [id number] [place] dical [facility] 0[address] Branch [facility] 2022-11-24 2022-11-24 Hospital Curt Cade 1.2.840.1 [id number] Univers 10:16:52 23:59:00 Encounter Franklin [facility] Eeg HENRY 350.1.13.10 [place]y of [place] 4[place]2.7.2.[place] [id number] [facility] [address] [place] 2022-11-24 2022-11-24 Outpatient R ALYSSIA [facility] [id number] Univers 09:27:31 10:15:[address] [facility] 2022-11-24 2022-11-24 [facility] 1.2.840.114 [id number] Univers 09:27:31 10:15:00 [facility] 350.1.13.10 ity of [facility] 4.2.7.2.686 [place] [id number] [facility] [address] [place] 2022-11-24 2022-11-24 Letter Franklin [facility] SINDY [id number] Univers 00:00:00 00:00:00 (Out) Eeg HEN[place] 350.1.13.10 [place]2.[place] [id number] [address] 2022-11-23 2022-11-23 [facility] [id number] Univers 12:59:40 23:59:00 Encounter Simon PARTIDAJAYCE 350.1.13.10 ity of [place] 4.2.7.2.686 [place] [id number] [place] [id number] [place] 2022-11-23 2022-11-23 Outpatient R SIMON LERMA [facility] [id number] Univers 12:59:40 23:59:[address] [facility] 2022-11-18 2022-11-18 Bottle Selector 2, Adc Lab [facility] 1.2.840.114 [id number] Univers 09:45:00 10:00:00 Visit Curt Cade 350.1.13.10 ity of [facility] 4.2.7.2.[place] [id number] [place] dical NAL 353 [facility] 2022-11-18 2022-11-18 Outpatient R ALYSSIA [facility] [id number] Univers 08:30:00 09:12:37 CURT ity [facility] 2022-11-18 2022-11-18 Office [facility] 1.2.840.114 [id number] Univers 08:30:00 09:12:37 Visit Curt GUIDRY 350.1.13.10 i ty of [facility] 4.2.7.2.[place] [id number] [place] dical NAL 044 [facility] 2022-11-18 2022-11-18 Orders Doctor SINDY 1.2.840.114 [id number] Univers 00:00:00 00:00:00 Only Unassigned, HENRY 350.1.13.10 ity of Scalp Level [facility] 4.2.7.2.686 Sung as [id number] [address] 2022-11-15 2022-11-15 Letter Florentin [facility] 1.2.840.114 [id number] Univers 00:00:00 00:00:00 (Out) Simon [facility] 350.1.13.10 ity of [place] 4.2.7.2.686 Sung as SONYA?BLEA [id number] [place] saeedarnel TERESASHAWNA 092 [facility] OFFICE [facility] 2022-11-12 2022-11-12 Bottle Selector Lab, Ang - [facility] 1.2.840.1 [id number] Univers 09:15:00 09:39:20 Visit Simon Lerma [facility] 350.1.13. 10 ity of [place] 4.2.7.2.686 Sung as SONYA?BLEA [id number] [facility] [facility] 353 [facility] OFFICE [facility] 2022-11-12 2022-11-12 Outpatient R SIMON LERMA [facility] [id number] Univers 08:00:00 09:04:47 SIMON LERMA [facility] 2022-11-12 2022-11-12 Office Florentin [facility] 1.2.840.114 [id number] Univers 08:00:00 09:04:47 Visit Simon [facility] 350.1.13.10 ity of [place] 4.2.7.2.686 Sung as SONYA?BLEA [id number] [address] OFFICE [facility] 2022-11-12 2022-11-12 Telephone Florentin IDNANETTE 1.2.840.114 [id number] Univers 00:00:00 00:00:00 Simon [facility] 350.1.13.10 it[facility] [id number] Sung as SONYA?BLEA [id number] [address] 2022-11-04 2022-11-04 Emergency ER BRIANNA, [facility] [id number] CHRISTU 07:13:00 13:12:00 PUSHPA [id number] [facility] 2022-11-04 2022-11-04 emergency [id number] [place] [id number] 07:13:00 13:12:00 [id number] dbf 2021-09-29 2021-09-29 (TEL) STLMLC STLMLC [id number] Co mmon 00:00:00 00:00:00 [facility] 2021-08-13 2021-08-13 (TEL) STLMLC STLMLC [id number] Co mmon 00:00:00 00:00:00 [facility] 2021-08-05 2021-08-05 (TEL) STLMLC STLMLC [id number] Co mmon 00:00:00 00:00:00 [facility] 2021-08-04 2021-08-04 OFFICE STLMLC STLMLC [id number] Co mmon 00:00:00 00:00:00 VISIT [facility] [place] L[place]EL 3 [place] [facility] [place]-07-03 2021-07-03 (TEL) STLMLC STLMLC [id number] Co mmon 00:00:00 00:00:00 [facility] 2021-04-29 2021-04-29 OFFICE STLMLC STLMLC [id number] Co mmon 00:00:00 00:00:00 VISIT EST Spir it PT LEVEL 3 [facility] 2021-04-28 2021-04-28 (TEL) STLMLC STLMLC [id number] Co mmon 00:00:00 00:00:00 [facility] 2021-02-24 2021-02-24 (TEL) STLMLC STLMLC [id number] Co mmon 00:00:00 00:00:00 [facility] 2021-02-10 2021-02-10 OFFICE STLMLC STLMLC [id number] Co mmon 00:00:00 00:00:00 VISIT EST Spir it PT LEVEL 3 [facility] 2021-01-12 2021-01-12 PREV VISIT STLMLC STLMLC [id number] Common 00:00:00 00:00:00 EST AGE [facility] 18-39 - [facility] 2020-12-22 2020-12-22 OFFICE STLMLC STLMLC [id number] Co mmon 00:00:00 00:00:00 VISIT NEW Spir it PT LEVEL 3 [facility] Results Test Description Test Time Test Comments Results Result Comments Source CBC WITH DIFF 2022-11-18 15:24:35 Test Item Value Reference Range Interpretation Comme nts WBC (test code = 6690-2) 8.68 See_Comment [A utomated message] The system which ge nerated this result transmit fouzia reference range: 4.30 - 1 1.10 10*3/?L. The reference r yusuf was not used to interpr et this result as normal/abnor mal. RBC (test code = 789-8) 4.74 See_Comment [Au tomated message] The system which ge nerated this result transmit fouzia reference range: 3.93 - 5 .25 10*6/?L. The reference r yusuf was not used to interpr et this result as normal/abnor mal. HGB (test code = 718-7) 14.1 g/dL 11.6-15.0 HCT (test code = 4544-3) 41.1 % 35.7-45.2 MCV (test code = 787-2) 86.7 fL 80.6-95.5 MCH (test code = 785-6) 29.7 pg 25.9-32.8 MCHC (test code = 786-4) 34.3 g/dL 31.6-35.1 RDW-SD (test code = 57934-5) 38.7 fL 39.0-49.9 L RDW-CV (test code = 788-0) 12.2 % 12.0-15.5 PLT (test code = 777-3) 348 See_Comment [Au tomated message] The system which ge nerated this result transmit fouzia reference range: 166 - 35 8 10*3/?L. The reference range was not used to interpret th is result as normal/abnormal . MPV (test code = 91984-0) 9.6 fL 9.5-12.9 NRBC/100 WBC (test code = 0.0 See_Comment [ Automated message] The [id number]) system which ge nerated this result transmit fouzia reference range: 0.0 - 10 .0 /100 WBCs. The reference r yusuf was not used to interpr et this result as normal/abnor mal. NRBC x10^3 (test code = See_Comment [Au tomated message] The 3718691266) system which ISORG nerated this result transmit fouzia reference range: 10*3/?L. The reference range was not u sed to interpret this result as normal/abnormal . GRAN MAT (NEUT) % (test code 52.5 % = 770-8) IMM GRAN % (test code = 0.30 % [id number]) LYMPH % (test code = 736-9) 36.8 % MONO % (test code = 5905-5) 5.2 % EOS % (test code = 713-8) 4.6 % BASO % (test code = 706-2) 0.6 % GRAN MAT x10^3(ANC) (test 4.56 10*3/uL 1.88-7.09 code = 1608548459) IMM GRAN x10^3 (test code = 0.03 10*3/uL 0.00-0.06 2797697574) LYMPH x10^3 (test code = 3.19 10*3/uL 1.32-3.29 731-0) MONO x10^3 (test code = 0.45 10*3/uL 0.33-0.92 742-7) EOS x10^3 (test code = 0.40 10*3/uL 0.03-0.39 H 711-2) BASO x10^3 (test code = 0.05 10*3/uL 0.01-0.07 704-7) Lab Interpretation (test Abnormal code = 42419-0) [facility] WITH [id number] 15:24:35 Test Item Value Reference Range Interpretation Comments WBC (test code = 8.68 See_Comment [Automated 5206-2) message] The sy stem which generated this result transmitted reference range : 4.30 - 11.10 10*3/?L. The reference range was not used to interpret this result as normal/abnormal . RBC (test code = 4.74 See_Comment [Automated 046-8) message] The sy stem which generated this result transmitted reference range : 3.93 - 5.25 10*6/?L. The reference range was not used to interpret this result as normal/abnormal . HGB (test code = 14.1 g/dL 11.6-15.0 718-7) HCT (test code = 41.1 % 35.7-45.2 4544-3) MCV (test code = 86.7 fL 80.6-95.5 787-2) MCH (test code = 29.7 pg 25.9-32.8 785-6) MCHC (test code = 34.3 g/dL 31.6-35.1 786-4) RDW-SD (test code = 38.7 fL 39.0-49.9 L 58796-5) RDW-CV (test code = 12.2 % 12.0-15.5 788-0) PLT (test code = 348 See_Comment [Automated 335-3) message] The sy stem which generated this result transmitted reference range : 166 - 358 10*3/ ?L. The reference r yusuf was not used to interpret this result as normal/abnormal . MPV (test code = 9.6 fL 9.5-12.9 28339-9) NRBC/100 WBC (test 0.0 See_Comment [Automat ed code = 6684786767) message] The system which generated this result transmitted reference range : 0.0 - 10.0 /100 WBCs. The refer ence range was not u sed to interpret th is result as normal/abnormal . NRBC x10^3 (test code See_Comment [Auto mated = 1504472090) message] The s ystem which generated this result transmitted reference range : 10*3/?L. The reference range was not used to interpret this result as normal/abnormal . GRAN MAT (NEUT) % 52.5 % (test code = 770-8) IMM GRAN % (test code 0.30 % = 6386003062) LYMPH % (test code = 36.8 % 736-9) MONO % (test code = 5.2 % 5905-5) EOS % (test code = 4.6 % 713-8) BASO % (test code = 0.6 % 706-2) GRAN MAT x10^3(ANC) 4.56 10*3/uL 1.88-7.09 (test code = 4481149774) IMM GRAN x10^3 (test 0.03 10*3/uL 0.00-0.06 code = 9345040602) LYMPH x10^3 (test code 3.19 10*3/uL 1.32-3.29 = 731-0) MONO x10^3 (test code 0.45 10*3/uL 0.33-0.92 = 742-7) EOS x10^3 (test code = 0.40 10*3/uL 0.03-0.39 H 711-2) BASO x10^3 (test code 0.05 10*3/uL 0.01-0.07 = 704-7) Lab Interpretation Abnormal (test code = 73832-8) [id number] 14:12:00 Test Item Value Reference Range Interpretation Comments POCT PREG (test code = 1605) Negative On board controls acceptable with Yes C Line (test code = 3574) POCT PREG LOT # (test code = 3575) [id number] POCT PREG TEST DATE (test 05/01/2023 code = 3576) Lab Interpretation (test code = Normal 28448-4) [facility] [id number] 14:12:00 Test Item Value Reference Range Interpretation Comments POCT PREG (test code = 1605) Negative On board controls acceptable with Yes C Line (test code = 3574) POCT PREG LOT # (test code = 3575) [id number] POCT PREG TEST DATE (test 05/01/2023 code = 3576) Lab Interpretation (test code = Normal 49589-6) [facility] With LDL/HDL [id number] 00:00:00 Test Item Value Reference Range Interpretation Comments Cholesterol, Total (test code = 2093-3) 155 100-169 Triglycerides (test code = 2571-8) 48 0-89 HDL Cholesterol (test code = 5-9) 69 >39 UA/M w/rflx Culture, [id number] 00:00:00 Test Item Value Reference Range Interpretation Comments Specific [place] (test code = 1.023 1.005-1.030 2965-2) pH (test code = 5803-2) 5.0 5.0-7.5 Urine-Color (test code = 5778-6) Yellow Yellow Appearance (test code = 5767-9) Cloudy Clear WBC Esterase (test code = 5799-2) Negative Negative Protein (test code = 21049-5) Negative Negative/Trace Glucose (test code = 2349-9) Negative Negative Ketones (test code = 2514-8) Negative Negative Occult Blood (test code = 5794-3) Negative Negative Bilirubin (test code = 5770-3) Negative Negative Urobilinogen,Semi-Qn (test code = 0.2 0.2-1.0 00460-2) Nitrite, Urine (test code = Negative Negative 5802-4) Microscopic Examination (test code See below: = 42672-3) Urinalysis Reflex (test code = UNLOINC) Hemoglobin [id number] 00:00:00 Test Item Value Reference Range Interpretation Comments Hemoglobin A1c (test code = 4548-4) 5.3 4.8-5.6 Comp. Metabolic Panel (14) (CMP)2021-01-15 00:00:00 Test Item Value Reference Range Interpretation Comments Glucose (test code = 2345-7) 128 65-99 BUN (test code = 3094-0) 5 6-20 Creatinine (test code = 2160-0) 0.66 0.57-1.00 eGFR If NonAfricn Am (test code = 129 >59 87209-4) eGFR If Africn Am (test code = 18383-8) 149 >59 BUN/Creatinine Ratio (test code = 8 01-22 3097-3) Sodium (test code = 2951-2) 138 134-144 Potassium (test code = 2823-3) 4.3 3.5-5.2 Chloride (test code = 2075-0) 103 96-106 Carbon Dioxide, Total (test code = -2027-) Calcium (test code = 03495-4) 9.3 8.7-10.2 Protein, Total (test code = 2885-2) 7.2 6.0-8.5 Albumin (test code = 1751-7) 4.7 3.9-5.0 Globulin, Total (test code = 65540-3) 2.5 1.5-4.5 A/G Ratio (test code = 1759-0) 1.9 1.2-2.2 Bilirubin, Total (test code = 1975-2) 0.5 0.0-1.2 Alkaline Phosphatase (test code = 70 42-106 6768-6) AST (SGOT) (test code = 1920-8) 14 0-40 ALT (SGPT) (test code = 1742-6) 11 0-32 Uric Acid, [id number] 00:00:00 Test Item Value Reference Range Interpretation Comments Uric Acid (test code = 3084-1) 4.8 2.6-6.2 CBC With Differential/[id number] 00:00:00 Test Item Value Reference Range Interpretation [...] Granulocytes (test code = 0 Not Estab. 35981-7) Immature Grans (Abs) (test code = 0.0 0.0-0.1 86064-9) NRBC (test code = 42589-8) Hematology Comments: (test code = 62095-0) TSH reflex to [id number] 00:00:00 Test Item Value Reference Range Interpretation Comments TSH (test code = 97315-6) 1.070 0.450-4.500 Notes Date/Time Note Provider Source 2022-11-29 10:36:54-00:00 Formatting of this note migh t be different from the original. [facility] Placing referral 2022-11-18 09:45:00-00:00 Formatting of this note is d ifferent from the original. [facility] Images from the original note were not included. Venipuncture collection perf ormed by clean technique on the right anticubitus. Total of 1 attempts were made. Slight pressure and a bandage/dressing were applied to the site(s). The patient experienced no complications. The follow ing specimens were processed according to instructions and sent to [facility] laboratories per lab order on 11/18/2022 : LT BLUE SST 2 RED LAV 2 PPT DK GREEN (LiHep) DK GREEN (SodH) BUSBY DK BLUE (K2) DK BLUE (S) ACD Blood Culture NIPT/NTD Pt collected urine in dr office Electronically signed by Ada Marcelino at 2022 9:25 AM CDT
[2022-12-13] MEDS ORDERED: LORazepam 2 MG/ML VIAL ONE (02:16)
[2022-12-13 02:42] LABS: Hematocrit 40.3 % (36.0-45.0); Lymphocytes % 36.1 % (15.3-44.8); MCV 87.6 fL (80-100); MPV 7.8 fL (7.6-11.3); Platelets 314 thou/uL (152-406)
[2022-12-13] MEDS ORDERED: LEVETIRACETAM 500 MG/5 ML VIAL IV ONE (02:43)
[2022-12-13] MEDS ORDERED: NA CHLORIDE 0.9% 100 ML ONE (02:43)
[2022-12-13 02:50] LABS: Bilirubin Direct 0.1 mg/dL (0-0.2); Bilirubin Indirect, Calculated 0.2 mg/dL (0.2-0.8); Bilirubin Total 0.3 mg/dL (0.2-1.0); Potassium 3.9 mEq/L (3.5-5.1); Protein, Total 8.1 g/dL (6.4-8.2)
[2022-12-13] MEDS ORDERED: NA CHLORIDE 0.9% 1,000 ML ONE (03:05)
[2022-12-13 03:41] LABS: Specific Gravity 1.024 (1.005-1.030); Urine Bacteria <20 /HPF (<20); Urine Bilirubin NEGATIVE (Negative); Urine Blood Negative (Negative); Urine Clarity Extremely Turbid (Clear); Urine Color Light-Yellow (Yellow); Urine Glucose NEGATIVE (Negative); Urine Protein NEGATIVE (Negative); Urine RBC <5 /HPF (None Seen); Urine Urobilinogen 1+ (Normal)
--- NOTE | 2022-12-13 03:55 | EDPHYS ---
Physician Documentation [facility] Name: Sue Perdomo Age: 22 yrs Sex: Female : 2000 Arrival Date: 12/13/2022 Time: 01:22 Bed 17 Private MD: ED Physician Bruce Retana HPI: 12/13 02:29 This 22 yrs old [place] Female presents to ER via Ambulatory with complaints of sb4 Headache. 02:29 The patient complains of pain to the occipital region. Onset: The symptoms/episode sb4 began/occurred this morning. Headache History: Denies prior headaches. The patient has been recently seen by a physician: a neurologist. patient was diagnosed with epilepsy a few months ago and started on keppra. she saw her neurologist a few days ago and they increased her dose from 500 bid to 750 bid. she states that she woke up this morning with a headache and forgot to take her keppra. this evening, her headache has worsened and is now extending down to her neck. significant other reports that she has had 2 seizures this evening. she did take her evening dose of keppra, 750 mg . 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 - Social history:: Smoking status: Patient denies any tobacco usage or history of. Patient/guardian denies using alcohol, street drugs. ROS: 02:29 Constitutional: Negative for fever, chills, and weight loss. sb4 02:29 Neuro: Positive for headache, seizure activity, Negative for altered mental status, dizziness, loss of consciousness, numbness, syncope, weakness. 02:29 All other systems are negative. Exam: 02:29 Head/Face: Normocephalic, atraumatic. Eyes: Extra-ocular motions intact. Periorbital sb4 areas with no swelling, redness, or edema. ENT: Mucous membranes moist. Cardiovascular: Regular rate and rhythm with a normal S1 and S2. Respiratory: Lungs have equal breath sounds bilaterally, clear to auscultation and percussion. No rales, rhonchi or wheezes noted. No increased work of breathing, no retractions or nasal flaring. Abdomen/GI: Soft, non-tender, no distension. Skin: Warm, dry with normal turgor. Normal color with no rashes, no lesions, and no evidence of cellulitis. MS/ Extremity: Pulses equal, no cyanosis. Neurovascular intact. Full, normal range of motion. 02:29 Constitutional: The patient appears awake, lethargic, post ictal 02:29 Neuro: Orientation: no acute changes, per friend(s), to person, place, time \T\ situation. Mentation: is normal, appropriate for stated age, no acute changes, per friend(s), able to follow commands, Memory: is normal. Vital Signs: 01:58 BP 119 / 71; Pulse 66; Resp 17 S; Temp 98.2(O); Pulse Ox 99% on R/A; Weight 67.59 kg lg3 (R); Height 5 ft. 2 in. (R); 02:46 BP 127 / 73; Pulse 64; Resp 16 S; Pulse Ox 99% on R/A; lg3 03:59 BP 124 / 69; Pulse 65; Resp 16 S; Pulse Ox 100% on R/A; lg3 01:58 Body Mass Index 27.25 (67.59 kg, 157.48 cm) lg3 Whitwell Coma Score: 02:29 Eye Response: spontaneous(4). Motor Response: obeys commands(6). Verbal Response: sb4 oriented(5). Total: 15. MDM: 01:43 Patient medically screened. sb4 02:29 Differential diagnosis: electrolyte abnormality, breakthrough seizure, complex migraine.sb4 03:53 Data reviewed: vital signs, nurses notes, lab test result(s), radiologic studies, and sb4 as a result, I will discharge patient. Consideration of Admission/Observation Escalation of care including admission/observation considered. Historians other than the Patient: Spouse/Significant Other: significant other. Care significantly affected by the following chronic conditions: epilepsy. Counseling: I had a detailed discussion with the patient and/or guardian regarding: the historical points, exam findings, and any diagnostic results supporting the discharge/admit diagnosis, lab results, radiology results, the need for outpatient follow up, a neurologist. ED course: patient doing much better, seizing has resolved, she is requesting to go home. she will call her neurologist in the morning . 12/13 01:50 Order name: Basic Metabolic Panel; Complete Time: 02:52 sb4 12/13 01:50 Order name: CBC with Diff; Complete Time: 03:06 sb4 12/13 01:50 Order name: Hepatic Function; Complete Time: 02:52 sb4 12/13 01:50 Order name: Magnesium; Complete Time: 02:52 sb4 12/13 01:50 Order name: Urinalysis w/ reflexes; Complete Time: 03:47 sb4 12/13 01:50 Order name: CT Head Brain wo Cont sb4 12/13 01:50 Order name: Cardiac monitoring; Complete Time: 02:13 sb4 12/13 01:50 Order name: IV Saline Lock; Complete Time: 02:25 sb4 12/13 01:50 Order name: Labs collected and sent; Complete Time: 02:25 sb4 12/13 01:50 Order name: O2 Per Protocol; Complete Time: 02:13 sb4 12/13 01:50 Order name: O2 Sat Monitoring; Complete Time: 02:13 sb4 12/13 01:50 Order name: Seizure Precautions; Complete Time: 02:13 sb4 Administered Medications: 02:08 Drug: LORazepam IM 2 mg Route: IM; Site: right gluteus; jb4 03:58 Follow up: Response: No adverse reaction; Marked relief of symptoms; RASS: Alert and lg3 Calm (0) 02:45 Drug: Keppra IV 1000 mg Route: IV; Rate: calculated rate; Site: right antecubital; lg3 03:58 Follow up: Response: No adverse reaction; IV Status: Completed infusion; IV Intake: [id number] 03:03 Drug: NS 0.9% IV 1000 ml Route: IV; Rate: 1 bolus; Site: right antecubital; lg3 03:58 Follow up: IV Status: Completed infusion; IV Intake: 1000ml lg3 Disposition: 04:07 Co-signature as Attending Physician, Bruce Retana MD I reviewed the patient's care rt provided by the Advanced Practice Provider and agree with the diagnosis and treatment plan. Disposition Summary: 12/13/22 03:55 Discharge Ordered Location: Home sb4 Problem: an acute exacerbation sb4 Symptoms: have improved sb4 Condition: Stable sb4 Diagnosis - Epilepsy, unspecified, not intractable, with status epilepticus sb4 Followup: sb4 - With: Private Physician - When: 1 - 2 days - Reason: Recheck today's complaints, Continuance of care, Re-evaluation by your physician Discharge Instructions: - Discharge Summary Sheet sb4 - Epilepsy sb4 - Seizure, Adult sb4 Forms: - Medication Reconciliation Form sb4 - Thank You Letter sb4 - Antibiotic Education sb4 - Prescription Opioid Use sb4 - Patient Portal Instructions sb4 - Leadership Thank You Letter sb4 Signatures: Dispatcher [employer] Buddy Queen RN RN jb4 Marlee Candelario RN RN lg3 Dora Goodman, PACee PACee sb4 Bruce Retana MD MD rt
--- NOTE | 2022-12-13 03:55 | ER ---
Nurse's Notes [facility] Name: Sue Perdomo Age: 22 yrs Sex: Female : 2000 Arrival Date: 12/13/2022 Time: 01:22 Bed 17 Private MD: Diagnosis: Epilepsy, unspecified, not intractable, with status epilepticus Presentation: 12/13 01:58 Chief complaint: Patient states: i forgot to take my Keppra this morning and i had 2 lg3 seizures tonight and now i have a headache. Coronavirus screen: Client denies travel out of the [place] in the last 14 days. At this time, the client does not indicate any symptoms associated with coronavirus-19. Ebola Screen: No symptoms or risks identified at this time. Initial Sepsis Screen: Does the patient meet any 2 criteria? No. Patient's initial sepsis screen is negative. Does the patient have a suspected source of infection? No. Patient's initial sepsis screen is negative. Risk Assessment: Do you want to hurt yourself or someone else? Patient reports no desire to harm self or others. Onset of symptoms was December 13, 2022. 01:58 Method Of Arrival: Ambulatory lg3 01:58 Acuity: PRUDENCIO 3 lg3 Triage Assessment: 01:59 Headache History: Denies prior headaches. General: Appears in no apparent distress. lg3 uncomfortable, Behavior is calm, cooperative. Pain: Complains of pain in head Pain currently is 9 out of 10 on a pain scale. Pain began 1 hour ago. Also complains of nausea, photophobia. EENT: No deficits noted. No signs and/or symptoms were reported regarding the EENT system. Neuro: No deficits noted. [place] Agitation-Sedation Scale (RASS): 0 - Alert and Calm Level of Consciousness is awake, alert, obeys commands, Oriented to person, place, time, situation. Cardiovascular: No deficits noted. Denies chest pain, shortness of breath, Capillary refill < 3 seconds Clubbing of nail beds is absent JVD is absent Patient's skin is warm and dry. Respiratory: No deficits noted. Airway is patent Respiratory effort is even, unlabored, Respiratory pattern is regular, symmetrical. GI: No deficits noted. No signs and/or symptoms were reported involving the gastrointestinal system. Abdomen is flat, non-distended. : No deficits noted. No signs and/or symptoms were reported regarding the genitourinary system. Derm: No deficits noted. No signs and/or symptoms reported regarding the dermatologic system. Skin is intact, is healthy with good turgor, Skin is dry, Skin is normal, Skin temperature is warm. Musculoskeletal: No deficits noted. No signs and/or symptoms reported regarding the musculoskeletal system. Circulation, motion, and sensation intact. Range of motion: intact in all extremities. 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 - Social history:: Smoking status: Patient denies any tobacco usage or history of. Patient/guardian denies using alcohol, street drugs. Screenin:02 [facility] ED Fall Risk Assessment (Adult) History of falling in the last 3 months, lg3 including since admission No falls in past 3 months (0 pts). Abuse screen: Denies threats or abuse. Denies injuries from another. Nutritional screening: No deficits noted. Tuberculosis screening: No symptoms or risk factors identified. Assessment: 02:02 General: see triage assessment . Pain: Complains of pain in head. lg3 02:07 Neuro: Seizure activity noted at this time. Seizure lasted approximately 2 minutes. lg3 Patient is post-ictal at this time. 02:46 General: Appears in no apparent distress. comfortable, Behavior is calm, cooperative. lg3 Neuro: [place] Agitation-Sedation Scale (RASS): -1 Drowsy Level of Consciousness is awake, obeys commands, post ictal, Oriented to person, place, time, situation, Reports headache. Respiratory: No deficits noted. Airway is patent Respiratory effort is even, unlabored, Respiratory pattern is regular, symmetrical. 03:58 Reassessment: Patient appears in no apparent distress at this time. Patient and/or lg3 family updated on plan of care and expected duration. Pain level reassessed. Patient is alert, oriented x 3, equal unlabored respirations, skin warm/dry/pink. Patient denies pain at this time. Patient states feeling better. Patient states symptoms have improved. Vital Signs: 01:58 BP 119 / 71; Pulse 66; Resp 17 S; Temp 98.2(O); Pulse Ox 99% on R/A; Weight 67.59 kg lg3 (R); Height 5 ft. 2 in. (R); 02:46 BP 127 / 73; Pulse 64; Resp 16 S; Pulse Ox 99% on R/A; lg3 03:59 BP 124 / 69; Pulse 65; Resp 16 S; Pulse Ox 100% on R/A; lg3 01:58 Body Mass Index 27.25 (67.59 kg, 157.48 cm) lg3 [place] Coma Score: 02:29 Eye Response: spontaneous(4). Motor Response: obeys commands(6). Verbal Response: sb4 oriented(5). Total: 15. ED Course: 01:25 Patient arrived in ED. ag3 01:43 Dora Goodman PA-C is PHCP. sb4 01:43 Bruce Retana MD is Attending Physician. sb4 01:57 Marlee Candelario, LARRY is Primary Nurse. lg3 01:59 Triage completed. lg3 01:59 Arm band placed on right wrist. lg3 02:02 Patient has correct armband on for positive identification. Placed in gown. Bed in low lg3 position. Call light in reach. Side rails up X2. Seizure precautions initiated. Client placed on continuous cardiac and pulse oximetry monitoring. NIBP monitoring applied. media monitor on. Door closed. Noise minimized. Warm blanket given. Family accompanied patient. 02:02 Patient maintains SpO2 saturation greater than 95% on room air. lg3 02:25 Basic Metabolic Panel Sent. lg3 02:25 CBC with Diff Sent. lg3 02:25 Hepatic Function Sent. lg3 02:25 Magnesium Sent. lg3 02:28 Inserted saline lock: 20 gauge in right antecubital area, using aseptic technique. oe Blood collected. 02:42 Urinalysis w/ reflexes Sent. lg3 02:50 CT Head Brain wo Cont In Process Unspecified. EDMS 04:06 No provider procedures requiring assistance completed. IV discontinued, intact, lg3 bleeding controlled, No redness/swelling at site. Pressure dressing applied. Administered Medications: 02:08 Drug: LORazepam IM 2 mg Route: IM; Site: right gluteus; jb4 03:58 Follow up: Response: No adverse reaction; Marked relief of symptoms; RASS: Alert and lg3 Calm (0) 02:45 Drug: Keppra IV 1000 mg Route: IV; Rate: calculated rate; Site: right antecubital; lg3 03:58 Follow up: Response: No adverse reaction; IV Status: Completed infusion; IV Intake: [id number] 03:03 Drug: NS 0.9% IV 1000 ml Route: IV; Rate: 1 bolus; Site: right antecubital; lg3 03:58 Follow up: IV Status: Completed infusion; IV Intake: 1000ml lg3 Medication: 04:07 VIS not applicable for this client. lg3 Intake: 03:58 IV: 1000ml; Total: 1000ml. lg3 03:58 IV: 50ml; Total: 1050ml. lg3 Outcome: 03:55 Discharge ordered by MD. sb4 04:06 Discharged to home ambulatory, with significant other. lg3 04:06 Condition: stable 04:06 Discharge instructions given to patient, significant other, Instructed on discharge instructions, follow up and referral plans. Demonstrated understanding of instructions, follow-up care. 04:07 Patient left the ED. lg3 Signatures: Dispatcher [employer] EDMS Buddy Alan, RN RN jb4 Ken Guevara Alice ag3 Marlee Candelario RN RN lg3 Dora Goodman PA-C PA-C sb4
[2022-12-13 04:36] VITALS: TEMP 98.2
[2022-12-13 04:40] VITALS: BP 124/69; O2SAT 100
--- NOTE | 2022-12-13 14:56 | RAD REPORT ---
EXAM DESCRIPTION: CT - Head Brain Wo Cont - 12/13/2022 6:54 am CLINICAL HISTORY: Headache, Seizure COMPARISON: None. TECHNIQUE: Head/brain axial images acquired without contrast. Coronal and sagittal reformats created . Exam performed according to departmental dose-optimization program which includes automated exposur e control, adjustment of mA and/or kV according to patient size, and/or use of iterative reconstructi on technique. FINDINGS: No midline shift, mass effect, intracranial hemorrhage, or hydrocephalus. Brain parenchyma unremarkable. Paranasal sinuses clear. Mastoid air cells clear. No skull fracture or significant skull lesion. IMPRESSION: Unremarkable CT head/brain without contrast. Electronically signed by: Darren Abreu MD 12/13/2022 3:04 AM CDT Due to temporary technical issues with the PACS/Fluency reporting system, reports are being signed by the in house radiologist without review as a courtesy to ensure prompt reporting. The interpreting r adiologist is fully responsible for the content of the report.
== END 2022-12-13 04:07 | disposition home or self-care (01) ==
LOC: ER 01:22
DX: G40.901 Epilepsy, unspecified, not intractable, with status epilepticus (principal); R51.9 Headache, unspecified; Z91.02 Food additives allergy status; Z91.018 Allergy to other foods; Z88.8 Allergy status to other drugs, medicaments and biological substances; D64.9 Anemia, unspecified; J45.909 Unspecified asthma, uncomplicated; R56.9 Unspecified convulsions
CPT/HCPCS: 85025; 81001; 80048; 36415; 83735; 80076; 70450; J1953; J7030

== ENCOUNTER 2022-12-23 20:21 | Emergency (ER) | payer OTHER ==
--- OUTSIDE RECORDS SUMMARY | 2022-12-23 20:25 | XMS REPORT | Continuity of Care Document ---
:2000 Author Organization [facility] t Address [address] [place] [address] Care Team Providers Name Role Phone FOUND, PCP NOT Primary Care Physician Unavailable Onelia Ellsworth Attending Clinician Unavailable Robert Angelo Attending Clinician Unavailable AUGIE RIVERO Attending Clinician Unavailable CURT CADE Attending Clinician Unavailable SIMON LERMA Attending Clinician Unavailable SIMON LERMA Attending Clinician Unavailable Simon Lerma MD Attending Clinician Mackenzie Almazan MD Attending Clinician Curt Gates Attending Clinician [facility] Eeg Attending Clinician Unavailable 2, Ad[facility] Lab Attending Clinician Unavailable Doctor Unassigned, [place] Attending Clinician Unavailable Lab, Ang - Db Attending Clinician Unavailable PUSHPA REED Attending Clinician Unavailable SIMON LERMA Admitting Clinician Unavailable Payers Payer Name Policy Type Policy Number Effective Date Expiration Date [employer] BLANCHARD [id number] 2022 00:00:00 C1 [id number] [facility] C1 [id number] [facility] ([facility] C1 [id number] [facility] (Active [facility]) [facility] Problems Condition Condition Condition Status Onset Resolution Last Treating Co mments Source Name Details Category Date Date Treatment Clinician Date [id number] BETITO Problem Common (generaliz Spirit ed anxiety - CHI disorder) [facility] [id number] PTSD Problem Common (post-trau Spirit matic - [facility] stress [facility] disorder) [facility] [id number] Current Problem Common moderate Spirit episode of - [facility] major [facility] depressive [facility] disorder Medical without Center prior episode Allergies, Adverse Reactions, Alerts Allergy Allergy Status Severity Reaction(s) Onset Inactive Treating Comm ents Source Name Type Date Date Clinician NO KNOWN Drug Active Univers ALLERGIE Class ity of S [facility] Social History Social Habit Start Date Stop Date Quantity Comments Source History of Tobacco [facility] Gender identity Universit y [facility] Tobacco use and 2022-11-12 2022-11-12 Smokeless Universit y of exposure 00:00:00 00:00:00 tobacco non-user [facility] History of Social 2022-11-12 2022-11-12 Univers ity of function 00:00:00 00:00:00 [facility] Sex Assigned At [birth year] Universit y of 00:00:00 00:00:00 [facility] Smoking Status Start Date Stop Date Source Never smoked tobacco [facility] Medications Ordered Filled Start Stop Current Ordering Indication Dosage Frequency Signature Comments Components Source Medication Medication Date Date Medication? Clinician (SIG) Name Name diclofenac Yes 50mg Take 1 Unive rs 50 mg 8-17 tablet by ity of tablet 00:00: mouth [place] 00 every 8 Medical (eight) Branch hours as needed for Other (headache) . proMETHazin 2022- No 25mg Take 1 Uni vers e 25 mg 8-14 08-14 tablet by ity of tablet 11:32: 00:00 mouth [place] 07 :00 every 4 Medical (four) Branch hours as needed. proMETHazin 2022- No 25mg Take 1 Uni vers e 25 mg 8-14 08-14 tablet by ity of tablet 11:32: 00:00 mouth [place] 07 :00 every 4 Medical (four) Branch hours as needed. levETIRAcet 2023-0 Yes [id number] 750mg Take 1 Univers am (KEPPRA) 8-11 tablet by ity of 750 mg 00:00: mouth in [place] tablet 00 the Medical morning Branch and 1 tablet in the evening. levETIRAcet 2022-0 Yes [id number] 750mg Take 1 Univers am (KEPPRA) 8-11 tablet by ity of 750 mg 00:00: mouth in [place] tablet 00 the Medical morning Branch and 1 tablet in the evening. levETIRAcet 2022-0 Yes [id number] 750mg Take 1 Univers am (KEPPRA) 8-11 tablet by ity of 750 mg 00:00: mouth in [place] tablet 00 the Medical morning Branch and 1 tablet in the evening. levETIRAcet 2022-0 Yes [id number] 750mg Take 1 Univers am (KEPPRA) 8-11 tablet by ity of 750 mg 00:00: mouth in [place] tablet 00 the Medical morning Branch and 1 tablet in the evening. levETIRAcet 2022-0 Yes [id number] 750mg Take 1 Univers am (KEPPRA) 8-11 tablet by ity of 750 mg 00:00: mouth in [place] tablet 00 the Medical morning Branch and 1 tablet in the evening. levETIRAcet 2022-0 Yes [id number] 750mg Take 1 Univers am (KEPPRA) 8-11 tablet by ity of 750 mg 00:00: mouth in [place] tablet 00 the Medical morning Branch and 1 tablet in the evening. gadobenate 0 3- No [id number] .2mL/kg 13.28 mL Univers dimeglumine 7-25 07-25 (0.2 mL/kg i ty of (MULTIHANCE 19:15: 19:05 ?66.4 kg), [place] -10 mL) 00 :00 Intravenou Medica l injection s, ONCE, 1 Bran ch 13.28 mL dose, On Tue11/23/22 at 1415, Routine proMETHazin 2022-0 Yes 25mg Take 1 Univ ers e 25 mg 7-20 tablet by ity of tablet 08:56: mouth [place] 51 every 4 Medical (four) Branch hours as needed. proMETHazin 2022-0 Yes 25mg Take 1 Univ ers e [...] times Medical daily. Branch norgestimat 2023-0 Yes [id number] 1{tbl} Take 1 Univers e-ethinyl 7-20 tablet by ity o f estradioL 00:[place] ([place]TH[place] 00 the Medical TRI-CYCLEN morning. [facility] ZACH, 28,) 0.18/0.215/ 0.25 mg-25 mcg tablet norgestimat 2023-0 Yes [id number] 1{tbl} Take 1 Univers e-ethinyl 7-20 tablet by ity o f estradioL 00:00: [place] ([place]TH[place] 00 the Medical TRI-CYCLEN morning. [facility] h ZACH, 28,) 0.18/0.215/ 0.25 mg-25 mcg tablet norgestimat 2023-0 Yes [id number] 1{tbl} Take 1 Univers e-ethinyl 7-20 tablet by ity o f estradioL 00:00: [place] ([place]THO 00 the Medical TRI-CYCLEN morning. Bran h LO, 28,) 0.18/0.215/ 0.25 mg-25 mcg tablet norgestimat 2023-0 Yes [id number] 1{tbl} Take 1 Univers e-ethinyl 7-20 tablet by ity o f estradioL 00:00: [place] ([place]THO 00 the Medical TRI-CYCLEN morning. Bran h LO, 28,) 0.18/0.215/ 0.25 mg-25 mcg tablet norgestimat 2023-0 Yes [id number] 1{tbl} Take 1 Univers e-ethinyl 7-20 tablet by ity o f estradioL 00:00: [place] ([place]TH[place] 00 the Medical TRI-CYCLEN morning. Bran h LO, 28,) 0.18/0.215/ 0.25 mg-25 mcg tablet norgestimat 2023-0 Yes [id number] 1{tbl} Take 1 Univers e-ethinyl 7-20 tablet by ity o f estradioL 00:00: [place] ([place]THO 00 the Medical TRI-CYCLEN morning. Bran h LO, 28,) 0.18/0.215/ 0.25 mg-25 mcg tablet norgestimat 2023-0 Yes [id number] 1{tbl} Take 1 Univers e-ethinyl 7-20 tablet by ity o f estradioL 00:00: [place] ([place]TH[place] 00 the Medical TRI-CYCLEN morning. Bran h LO, 28,) 0.18/0.215/ 0.25 mg-25 mcg tablet norgestimat 2023-0 Yes [id number] 1{tbl} Take 1 Univers e-ethinyl 7-20 tablet by ity o f estradioL 00:00: [place] ([place]THO 00 the Medical TRI-CYCLEN morning. Bran h LO, 28,) 0.18/0.215/ 0.25 mg-25 mcg tablet norgestimat 2023-0 Yes [id number] 1{tbl} Take 1 Univers e-ethinyl 7-20 tablet by ity o f estradioL 00:00: [place] ([place]THO 00 the Medical TRI-CYCLEN morning. Bran h LO, 28,) 0.18/0.215/ 0.25 mg-25 mcg tablet norgestimat 2023-0 Yes [id number] 1{tbl} Take 1 Univers e-ethinyl 7-20 tablet by ity o f estradioL 00:00: [place] ([place]TH[place] 00 the Medical TRI-CYCLEN morning. Bran h LO, 28,) 0.18/0.215/ 0.25 mg-25 mcg tablet norgestimat 2023-0 Yes [id number] 1{tbl} Take 1 Univers e-ethinyl 7-20 tablet by ity o f estradioL 00:00: [place] ([place]TH[place] 00 the Medical TRI-CYCLEN morning. Bran h LO, 28,) 0.18/0.215/ 0.25 mg-25 mcg tablet norgestimat 2023-0 Yes [id number] 1{tbl} Take 1 Univers e-ethinyl 7-20 tablet by ity o f estradioL 00:00: [place] ([place]THO 00 the Medical TRI-CYCLEN morning. Bran h LO, 28,) 0.18/0.215/ 0.25 mg-25 mcg tablet norgestimat 2023-0 Yes [id number] 1{tbl} Take 1 Univers e-ethinyl 7-20 tablet by ity o f estradioL 00:00: [place] ([place]TH[place] 00 the Medical TRI-CYCLEN morning. Bran h LO, 28,) 0.18/0.215/ 0.25 mg-25 mcg tablet norgestimat 2023-0 Yes [id number] 1{tbl} Take 1 Univers e-ethinyl 7-20 tablet by ity o f estradioL 00:00: [place] ([place]THO 00 the Medical TRI-CYCLEN morning. Branc h LO, 28,) 0.18/0.215/ 0.25 mg-25 mcg tablet norgestimat 2023-0 Yes [id number] 1{tbl} Take 1 Univers e-ethinyl 7-20 tablet by ity o f estradioL 00:00: [place] ([place]THO 00 the Medical TRI-CYCLEN morning. Bran h LO, 28,) 0.18/0.215/ 0.25 mg-25 mcg tablet norgestimat 2023-0 Yes [id number] 1{tbl} Take 1 Univers e-ethinyl 7-20 tablet by ity o f estradioL 00:00: [place] ([place]TH[place] 00 the Medical TRI-CYCLEN morning. [facility] saundra SERRANO, 28,) 0.18/0.215/ 0.25 mg-25 mcg tablet FAMOTIDINE 2022-0 Yes Take by Univ ers ORAL 7-14 mouth 2 ity of 08:19: (two) [place] 18 times Medical daily. Branch FAMOTIDINE 2022-0 Yes Take by Univ ers ORAL 7-14 mouth 2 ity of 08:19: (two) [place] 18 times Medical daily. Branch FAMOTIDINE 2022-0 Yes Take by Univ ers ORAL 7-14 mouth 2 ity of 08:19: (two) [place] 18 times Medical daily. Branch FAMOTIDINE 2022-0 Yes Take by Univ ers ORAL 7-14 mouth 2 ity of 08:19: (two) [place] 18 times Medical daily. Branch FAMOTIDINE 2022-0 Yes Take by Univ ers ORAL 7-14 mouth 2 ity of 08:19: (two) [place] 18 times Medical daily. Branch FAMOTIDINE 2022-0 Yes Take by Univ ers ORAL 7-14 mouth 2 ity of 08:19: (two) [place] 18 times Medical daily. Branch FAMOTIDINE 2022-0 Yes Take by Univ ers ORAL 7-14 mouth 2 ity of 08:19: (two) [place] 18 times Medical daily. Branch levETIRAcet 2022-0 Yes [id number] 500mg Take 1 Univers am (KEPPRA) 7-14 tablet by ity of 500 mg 00:00: mouth in [place] tablet 00 the Medical morning Branch and 1 tablet in the evening. levETIRAcet 2022-0 Yes [id number] 500mg Take 1 Univers am (KEPPRA) 7-14 tablet by ity of 500 mg 00:00: mouth in [place] tablet 00 the Medical morning Branch and 1 tablet in the evening. levETIRAcet 2023-0 Yes [id number] 500mg Take 1 Univers am (KEPPRA) 7-14 tablet by ity of 500 mg 00:00: mouth in [place] tablet 00 the Medical morning Branch and 1 tablet in the evening. levETIRAcet 2022-0 Yes [id number] 500mg Take 1 Univers am (KEPPRA) 7-14 tablet by ity of 500 mg 00:00: mouth in [place] tablet 00 the Medical morning Branch and 1 tablet in the evening. levETIRAcet 2022-0 Yes [id number] 500mg Take 1 Univers am (KEPPRA) 7-14 tablet by ity of 500 mg 00:00: mouth in [place] tablet 00 the Medical morning Branch and 1 tablet in the evening. levETIRAcet 2022-0 Yes [id number] 500mg Take 1 Univers am (KEPPRA) 7-14 tablet by ity of 500 mg 00:00: mouth in [place] tablet 00 the Medical morning Branch and 1 tablet in the evening. levETIRAcet 2022-0 Yes [id number] 500mg Take 1 Univers am (KEPPRA) 7-14 tablet by ity of 500 mg 00:00: mouth in [place] tablet 00 the Medical morning Branch and 1 tablet in the evening. levETIRAcet 2022-0 Yes [id number] 500mg Take 1 Univers am (KEPPRA) 7-14 tablet by ity of 500 mg 00:00: mouth in [place] tablet 00 the Medical morning Branch and 1 tablet in the evening. levETIRAcet 2022-0 Yes [id number] 500mg Take 1 Univers am (KEPPRA) 7-14 tablet by ity of 500 mg 00:00: mouth in [place] tablet 00 the Medical morning Branch and 1 tablet in the evening. levETIRAcet 2022-0 Yes [id number] 500mg Take 1 Univers am (KEPPRA) 7-14 tablet by ity of 500 mg 00:00: mouth in [place] tablet 00 the Medical morning Branch and 1 tablet in the evening. levETIRAcet 2022-0 Yes [id number] 500mg Take 1 Univers am (KEPPRA) 7-14 tablet by ity of 500 mg 00:00: mouth in [place] tablet 00 the Medical morning Branch and 1 tablet in the evening. levETIRAcet 2022-0 Yes [id number] 500mg Take 1 Univers am (KEPPRA) 7-14 tablet by ity of 500 mg 00:00: mouth in [place] tablet 00 the Medical morning Branch and 1 tablet in the evening. levETIRAcet 2022-0 Yes [id number] 500mg Take 1 Univers am (KEPPRA) 7-14 tablet by ity of 500 mg 00:00: mouth in [place] tablet 00 the Medical morning Branch and 1 tablet in the evening. levETIRAcet 2022-0 Yes [id number] 500mg Take 1 Univers am (KEPPRA) 7-14 tablet by ity of 500 mg 00:00: mouth in [place] tablet 00 the Medical morning Branch and 1 tablet in the evening. levETIRAcet 2022-0 Yes [id number] 500mg Take 1 Univers am (KEPPRA) 7-14 tablet by ity of 500 mg 00:00: mouth in [place] tablet 00 the Medical morning Branch and 1 tablet in the evening. levETIRAcet 2022-0 Yes [id number] 500mg Take 1 Univers am (KEPPRA) 7-14 tablet by ity of 500 mg 00:00: mouth in [place] tablet 00 the Medical morning Branch and 1 tablet in the evening. levETIRAcet 2022-0 Yes [id number] 500mg Take 1 Univers am (KEPPRA) 7-14 tablet by ity of 500 mg 00:00: mouth in [place] tablet 00 the Medical morning Branch and 1 tablet in the evening. levETIRAcet 0 2022- No [id number] 500mg Take 1 Univers am (KEPPRA) 7-14 -11 tablet by it y of 500 mg 00:00: 00:00 mouth in [place] tablet 00 :00 the Medical morning Branch and 1 tablet in the evening. levETIRAcet 0 3- No [id number] 500mg Take 1 Univers am (KEPPRA) 7-13 12-11 tablet by it y of 500 mg 00:00: 00:00 mouth in [place] tablet 00 :00 the Medical morning Branch and 1 tablet [...] Name Observation Time Observation Value Comments Source Systolic blood 2022-12-10 14:06:00 125 mm[facility]Hg[facility] Diastolic blood 2022-12-10 14:06:00 85 mm[Hg] [facility] Heart rate 2022-12-10 14:06:00 92 /min [facility] Respiratory rate 2022-12-10 14:06:00 15 /min [facility] Body height 2022-12-10 14:06:[address] [facility] Body weight 2022-12-10 14:06:[address] [facility] BMI 2022-12-10 14:06:00 26.40 kg/m2 [facility] Body temperature 2022-12-09 19:17:00 36.61 Arianna [facility] Body height 2022-12-09 19:17:[address] [facility] Body weight 2022-12-09 19:17:[address] [facility] BMI 2022-12-09 19:17:00 26.70 kg/m2 [facility] Systolic blood 2022-11-18 13:47:00 110 mm[Hg] Univer sity of pressure [facility] Diastolic blood 2022-11-18 13:47:00 75 mm[Hg] Unive rsity of pressure [facility] Heart rate 2022-11-18 13:47:00 73 /min Universi ty of [facility] Body temperature 2022-11-18 13:47:00 36.67 Arianna Univ ersity of [facility] Respiratory rate 2022-11-18 13:47:00 19 /min Univ ersity of [facility] Body height 2022-11-18 13:47:00 158.8 cm Universi ty of [facility] Body weight 2022-11-18 13:47:00 66.361 kg Universi ty of [place] [facility] BMI 2022-11-18 13:47:00 26.33 kg/m2 Universi ty of [facility] Oxygen saturation in 2022-11-18 13:47:00 98 /min University of Arterial blood by [facility] Pulse oximetry Branch Systolic blood 2022-11-12 13:16:00 111 mm[Hg] Univer sity of pressure [facility] Diastolic blood 2022-11-12 13:16:00 76 mm[Hg] Unive rsity of pressure [facility] Branch Heart rate 2022-11-12 13:16:00 77 /min Universi ty of [facility] Respiratory rate 2022-11-12 13:16:00 18 /min Univ ersity of [facility] Body height 2022-11-12 13:16:00 160 cm Universi ty of [place] [facility] Body weight 2022-11-12 13:16:00 66.18 kg Universi ty of [place] [facility] BMI 2022-11-12 13:16:00 25.85 kg/m2 Universi ty of [facility] height 2021-08-04 08:30:00 62 [in_i] [facility] weight 2021-08-04 08:30:00 129 [lb_av] [facility] temperature 2021-08-04 08:30:00 98.0 [degF] [facility] bmi 2021-08-04 08:30:00 23.59 kg/m2 [facility] blood pressure 2021-08-04 08:30:00 110 mm[Hg] [facility] blood pressure 2021-08-04 08:30:00 68 mm[Hg] [facility] - diastolic [facility] height 2021-04-29 11:20:00 62 [in_i] Common [facility] weight 2021-04-29 11:20:00 117 [lb_av] [facility] bmi 2021-04-29 11:20:00 21.4 kg/m2 Common [facility] height 2021-02-10 15:10:00 62 [in_i] [facility] weight 2021-02-10 15:10:00 117 [lb_av] [facility] temperature 2021-02-10 15:10:00 98.5 [degF] [facility] bmi 2021-02-10 15:10:00 21.40 kg/m2 [facility] height 2021-01-12 09:10:00 62 [in_i] [facility] weight 2021-01-12 09:10:00 117.1 [lb_av] [facility] temperature 2021-01-12 09:10:00 97.7 [degF] [facility] bmi 2021-01-12 09:10:00 21.42 kg/m2 [facility] oximetry 2021-01-12 09:10:00 98 % [facility] respiratory rate 2021-01-12 09:10:00 16 /min [facility] on [facility] blood pressure 2021-01-12 09:10:00 111 mm[Hg] [facility] blood pressure 2021-01-12 09:10:00 66 mm[Hg] [facility] height 2020-12-22 14:20:00 62 [in_i] [facility] weight 2020-12-22 14:20:00 116.7 [lb_av] [facility] temperature 2020-12-22 14:20:00 98.1 [degF] [facility] bmi 2020-12-22 14:20:00 21.34 kg/m2 [facility] oximetry 2020-12-22 14:20:00 100 % [facility] respiratory rate 2020-12-22 14:20:00 16 /min [facility] on [facility] blood pressure 2020-12-22 14:20:00 112 mm[Hg] [facility] systolic [facility] blood pressure 2020-12-22 14:20:00 66 mm[Hg] [facility] diastolic [facility] Procedures Procedure Date / Time Performing Clinician Source Performed US HEAD NECK 2022-11-24 15:07:00 Curt Cade [facility] MR BRAIN W WO CONTRAST 2022-11-23 19:10:00 Simon Lerma [facility] WITH NEUROQUANT Medical Branch CBC WITH DIFF 2022-11-18 14:24:00 Curt Cade [facility] VACCINATION OF A MINOR 2022-11-18 13:37:19 Doctor Unassigned, No [facility] Name [facility] Branch POCT TEST 2022-11-18 00:00:[address] [facility] Encounters Start End Encounter Admission Attending Care Care Encounter Source Date/Time Date/Time Type Type Clinicians Facility Department ID 2022-09-08 Outpatient Jodee, STLMLC STLC [id number] Common 14:46:01 Onelia [id number] [facility] 2022-07-05 Outpatient Ellsworth, STLMLC STLMLC [id number] Common 11:18:01 Onelia [id number] [facility] 2021-10-01 Outpatient Angelo, STLMLC STLMLC [id number] Common 15:41:01 [facility] 2021-07-20 Outpatient Angelo, STLMLC STLMLC [id number] Common 14:35:01 Robert [facility] 2021-06-08 Outpatient Angelo, STLMLC STLMLC [id number] Common 08:16:03 Robret [facility] 2021-05-27 Outpatient Angelo, STLMLC STLMLC [id number] Common 14:04:10 Robert [id number] [facility] 2021-05-27 Outpatient Angelo, STLMLC STLMLC [id number] Common 13:58:53 Robert [id number] [facility] 2021-05-27 Outpatient Angelo, STLMLC STLMLC [id number] Common 13:49:12 Robert [id number] [facility] 2021-05-27 Outpatient Angelo, STLMLC STLMLC [id number] Common 13:48:18 Robert [id number] [facility] 2021-05-27 Outpatient Angelo, STLMLC STLMLC [id number] Common 13:42:28 Robert [id number] [facility] 2021-05-27 Outpatient STLMLC STLMLC [id number] Common 13:41:33 [id number] [facility] 2023-02-17 2023-02-17 Outpatient Akua CADE [facility] [id number] Univers 09:00:00 09:00:00 CURT brown [facility] 2023-01-07 2023-01-07 Outpatient SIMON JACQUES [facility] [id number] Univers 08:00:00 08:00:00 SIMON LERMA pineda [facility] 2022-12-27 2022-12-27 Outpatient AUGIE ROJAS [facility] [id number] Univers 08:30:00 [facility]:30[facility] 2022-12-13 2022-12-13 Telephone Florentin [facility] [id number] [id number] Univers 00:00:00 00:00:00 [facility] [id number] [facility] [id number] Sung as SONYA?BLEA [id number] Ms dic[address] OFFICE BUILDING 2022-12-10 2022-12-10 Outpatient R SIMON LERMA [facility] [id number] Univers 09:00:00 10:01:43 [facility] 2022-12-10 2022-12-10 [facility] [id number] Univers 09:00:00 10:01:43 Visit [facility] [id number] ity of [place] 4.2.7.2.686 Sung as SONYA?BLEA [id number] [address] OFFICE [facility] 2022-12-10 2022-12-10 [facility] [id number] Univers 00:00:00 00:00:00 [facility] [id number] ity of [place] 4.2.7.2.686 Sung as SONYA?BLEA [id number] [address] OFFICE [facility] 2022-12-09 2022-12-09 [facility] 1.2.840.114 [id number] [facility] 14:15:00 14:30:00 Visit Mackenzie AKBAR [id number] i [place] [id number] [address] 2022-12-09 2022-12-09 Outpatient R ALISIA [facility] [id number] Univers 14:15:00 14:15:00 VIRAN ity of [facility] 2022-11-29 2022-11-29 Telephone [facility] [id number] Univers 00:00:00 00:00:00 Curt GUIDRY [id number] i ty [place] [id number] Ms dicarnel [place] [address] Branch [facility] 2022-11-24 2022-11-24 [facility] Curt Cade 1.2.840.1 [id number] Univers 10:16:52 23:59:00 Encounter [facility] Eeg [place]EN[place] 350.1.13.10 [place] [id number] [facility] [address] 2022-11-24 2022-11-24 Outpatient R ALYSSIA [facility] [id number] Univers 09:27:31 10:15:00 CURT ity [facility] 2022-11-24 2022-11-24 Hospital CadeMICHAEL 1.2.840.114 [id number] Univers 09:27:31 10:15:00 [facility] 350.1.13.10 ity of [facility] 4[place].2.[place] [id number] [facility] [address] 2022-11-24 2022-11-24 Letter [facility] SINDY [id number] Univers 00:00:00 00:00:00 (Out) Eeg [place] 350.1.13.10 [place] [id number] [address] 2022-11-23 2022-11-23 [facility] [id number] Univers 12:59:40 23:59:00 Encounter Simon GUIDRY 350.1.13.10 ity [place] CARNEG[place] [id number] [facility] [address] 2022-11-23 2022-11-23 Outpatient R SIMON LERMA [facility] [id number] Univers 12:59:40 23:59:00 SIMON LERMA ity [facility] 2022-11-18 2022-11-18 [employer] 2, Adc Lab [facility] 1.2.840.114 [id number] Univers 09:45:00 10:00:00 Visit Alyssia Curtmarilyn GUIDRY 350.1.13.10 ity [place] PROFESS[place] [id number] Ms dic[address] 2022-11-18 2022-11-18 Outpatient R ALSYSIA [facility] [id number] Univers 08:30:00 09:12:37 CURT stephanie [facility] 2022-11-18 2022-11-18 [facility] 1.2.840.114 [id number] Univers 08:30:00 09:12:37 Visit Curt GUIDRY 350.1.13.10 i ty of [place]2.[place] PROFESS[place] [id number] Ms dical NAL 044 [facility] 2022-11-18 2022-11-18 Orders Doctor SINDY 1.2.840.114 [id number] Univers 00:00:00 00:00:00 Only Unassigned, HENRY 350.1.13.10 ity of [employer] [facility] 4.2.7.2.686 Sung as [id number] [address] 2022-11-15 2022-11-15 Letter Florentin [facility] 1.2.840.114 [id number] Univers 00:00:00 00:00:00 (Out) Simon [facility] [id number] ity of [place] 4.2.7.2.686 Sung as SONYA?BLEA [phone] Ms saeedarnel PASCAL [address] [facility] OFFICE [facility] 2022-11-12 2022-11-12 [employer], [facility] 1.2.840.1 [id number] Univers 09:15:00 09:39:20 Visit Simon Lerma [facility] 350.1.13. 10 ity of [place] 4.2.7.2.686 Sung as SONYA?BLEA [id number] Ms saeedarnel TERESASHAWNA 353 [facility] OFFICE BUILDING 2022-11-12 2022-11-12 Outpatient R SIMON LERMA [facility] [id number] Univers 08:00:00 09:04:47 SIMON LERMA [facility] 2022-11-12 2022-11-12 Office Florentin [facility] [id number] Univers 08:00:00 09:04:47 Visit Simon [facility] [id number] ity of [place] 4.2.7.2.686 Sung as SONYA?BLEA [phone] Me dicarnel [address] MEDICAL OFFICE BUILDING 2022-11-12 2022-11-12 Telephone Florentin ARNANETTE 1.2.840.114 [id number] Univers 00:00:00 00:00:00 [facility] 350.1.13.10 ity of [place] 4.2.7.2.686 Sung as SONYA?BLEA [id number] Ms dical [address] OFFICE BUILDING 2022-11-04 2022-11-04 Emergency [facility] [id number] CHRISTU 07:13:00 13:12:00 PUSHPA [id number] [facility] 2022-11-04 2022-11-04 emergency [id number] 07:13:00 13:12:00 [id number] 2021-09-29 2021-09-29 (TEL) STLMLC STLMLC [id number] Co mmon 00:00:00 00:00:00 [facility] 2021-08-13 2021-08-13 (TEL) STLMLC STLMLC [id number] Co mmon 00:00:00 00:00:00 [facility] 2021-08-05 2021-08-05 (TEL) STLMLC STLMLC [id number] Co mmon 00:00:00 00:00:00 [facility] 2021-08-04 2021-08-04 OFFICE STLMLC STLMLC [id number] Co mmon 00:00:00 00:00:00 VISIT NEW Spir it PT LEVEL 3 - [facility] 2021-07-03 2021-07-03 (TEL) STLMLC STLMLC [id number] Co mmon 00:00:00 00:00:00 [facility] 2021-04-29 2021-04-29 OFFICE STLMLC STLMLC [id number] Co mmon 00:00:00 00:00:00 VISIT EST Spir it PT LEVEL 3 - [facility] 2021-04-28 2021-04-28 (TEL) STLMLC STLMLC [id number] Co mmon 00:00:00 00:00:00 [facility] 2021-02-24 2021-02-24 (TEL) STLMLC STLMLC [id number] Co mmon 00:00:00 00:00:00 [facility] 2021-02-10 2021-02-10 OFFICE STLMLC STLMLC [id number] Co mmon 00:00:00 00:00:00 VISIT EST Spir it PT LEVEL 3 [facility] 2021-01-12 2021-01-12 PREV VISIT STLMLC STLMLC [id number] Common 00:00:00 00:00:00 EST AGE Spirit 18-39 - [facility] 2020-12-22 2020-12-22 OFFICE STLMLC STLMLC [id number] Co mmon 00:00:00 00:00:00 VISIT NEW Spir it PT LEVEL 3 [facility] Results Test Description Test Time Test Comments [...] 34.3 g/dL 31.6-35.1 RDW-SD (test code = 49420-2) 38.7 fL 39.0-49.9 L RDW-CV (test code = 788-0) 12.2 % 12.0-15.5 PLT (test code = 777-3) 348 See_Comment [Au tomated message] The system which ge nerated this result transmit fouzia reference range: 166 - 35 8 10*3/?L. The reference range was not used to interpret th is result as normal/abnormal . MPV (test code = 37232-8) 9.6 fL 9.5-12.9 NRBC/100 WBC (test code = 0.0 See_Comment [ Automated message] The [id number]) system which ge nerated this result transmit fouzia reference range: 0.0 - 10 .0 /100 WBCs. The reference r yusuf was not used to interpr et this result as normal/abnor mal. NRBC x10^3 (test code = See_Comment [Au tomated message] The [id number]) system which ge nerated this result transmit fouzia reference range: 10*3/?L. The reference range was not u sed to interpret this result as normal/abnormal . GRAN MAT (NEUT) % (test code 52.5 % = 770-8) IMM GRAN % (test code = 0.30 % [id number]) LYMPH % (test code = 736-9) 36.8 % MONO % (test code = 5905-5) 5.2 % EOS % (test code = 713-8) 4.6 % BASO % (test code = 706-2) 0.6 % GRAN MAT x10^3(ANC) (test 4.56 10*3/uL 1.88-7.09 code = 7524890395) IMM GRAN x10^3 (test code = 0.03 10*3/uL 0.00-0.06 0829787558) LYMPH x10^3 (test code = 3.19 10*3/uL 1.32-3.29 731-0) MONO x10^3 (test code = 0.45 10*3/uL 0.33-0.92 742-7) EOS x10^3 (test code = 0.40 10*3/uL 0.03-0.39 H 711-2) BASO x10^3 (test code = 0.05 10*3/uL 0.01-0.07 704-7) Lab Interpretation (test Abnormal code = 28428-8) [facility] WITH [id number] 15:24:35 Test Item Value Reference Range Interpretation Comments WBC (test code = 8.68 See_Comment [Automated 2990-2) message] The sy stem which generated this result transmitted reference range : 4.30 - 11.10 10*3/?L. The reference range was not used to interpret this result as normal/abnormal . RBC (test code = 4.74 See_Comment [Automated 789-8) message] The sy stem which generated this [...] (test code = 38.7 fL 39.0-49.9 L 75083-9) RDW-CV (test code = 12.2 % 12.0-15.5 788-0) PLT (test code = 348 See_Comment [Automated 777-3) message] The sy stem which generated this result transmitted reference range : 166 - 358 10*3/ ?L. The reference r yusuf was not used to interpret this result as normal/abnormal . MPV (test code = 9.6 fL 9.5-12.9 04615-3) NRBC/100 WBC (test 0.0 See_Comment [Automat ed code = 3591495566) message] The system which generated this result transmitted reference range : 0.0 - 10.0 /100 WBCs. The refer ence range was not u sed to interpret th is result as normal/abnormal . NRBC x10^3 (test code See_Comment [Auto mated = 0674695639) message] The s ystem which generated this result transmitted reference range : 10*3/?L. The reference range was not used to interpret this result as normal/abnormal . GRAN MAT (NEUT) % 52.5 % (test code = 770-8) IMM GRAN % (test code 0.30 % = 3087580419) LYMPH % (test code = 36.8 % 736-9) MONO % (test code = 5.2 % 5905-5) EOS % (test code = 4.6 % 713-8) BASO % (test code = 0.6 % 706-2) GRAN MAT x10^3(ANC) 4.56 10*3/uL 1.88-7.09 (test code = 0085947210) IMM GRAN x10^3 (test 0.03 10*3/uL 0.00-0.06 code = 6676684157) LYMPH x10^3 (test code 3.19 10*3/uL 1.32-3.29 = 731-0) MONO x10^3 (test code 0.45 10*3/uL 0.33-0.92 = 742-7) EOS x10^3 (test code = 0.40 10*3/uL 0.03-0.39 H 711-2) BASO x10^3 (test code 0.05 10*3/uL 0.01-0.07 = 704-7) Lab Interpretation Abnormal (test code = 06146-7) [facility] [id number] 14:12:00 Test Item Value Reference Range Interpretation Comments POCT PREG (test code = 1605) Negative On board controls acceptable with Yes C Line (test code = 3574) POCT PREG LOT # (test code = 3575) [id number] POCT PREG TEST DATE (test 05/01/2023 code = 3576) Lab Interpretation (test code = Normal 93906-7) [facility] [id number] 14:12:00 Test Item Value Reference Range Interpretation Comments POCT PREG (test code = 1605) Negative On board controls acceptable with Yes C Line (test code = 3574) POCT PREG LOT # (test code = 3575) [id number] POCT PREG TEST DATE (test 05/01/2023 code = 3576) Lab Interpretation (test code = Normal 58628-0) [facility] [id number] 00:00:00 Test Item Value Reference Range Interpretation Comments Cholesterol, Total (test code = 3-3) 155 100-169 Triglycerides (test code = 2571-8) 48 0-89 HDL Cholesterol (test code = 5-9) 69 >39 UA/M w/rflx Culture, [id number] 00:00:00 Test Item Value Reference Range Interpretation Comments Specific [place] (test code = 1.023 1.005-1.030 2965-2) pH (test code = 5803-2) 5.0 5.0-7.5 Urine-Color (test code = 5778-6) Yellow Yellow Appearance (test code = 5767-9) Cloudy Clear WBC Esterase (test code = 5799-2) Negative Negative Protein (test code = 36648-4) Negative Negative/Trace Glucose (test code = 2349-9) Negative Negative Ketones (test code = 2514-8) Negative Negative Occult Blood (test code = 5794-3) Negative Negative Bilirubin (test code = 5770-3) Negative Negative Urobilinogen,Semi-Qn (test code = 0.2 0.2-1.0 56846-8) Nitrite, Urine (test code = Negative Negative 5802-4) Microscopic Examination (test code See below: = 87384-1) Urinalysis Reflex (test code = UNLOINC) Hemoglobin [id number] 00:00:00 Test Item Value Reference Range Interpretation Comments Hemoglobin A1c (test code = 4548-4) 5.3 4.8-5.6 Comp. Metabolic Panel (14) (CMP)2021-01-15 00:00:00 Test Item Value Reference Range Interpretation Comments Glucose (test code = 2345-7) 128 65-99 BUN (test code = 3094-0) 5 6-20 Creatinine (test code = 2160-0) 0.66 0.57-1.00 eGFR If NonAfricn Am (test code = 129 >59 95839-8) eGFR If Africn Am (test code = 32291-9) 149 >59 BUN/Creatinine Ratio (test code = 01-22 3097-3) Sodium (test code = 2951-2) 138 134-144 Potassium (test code = 2823-3) 4.3 3.5-5.2 Chloride (test code = 2075-0) 103 96-106 Carbon Dioxide, Total (test code = -2027-) Calcium (test code = 83871-4) 9.3 8.7-10.2 Protein, Total (test code = 2885-2) 7.2 6.0-8.5 Albumin (test code = 1751-7) 4.7 3.9-5.0 Globulin, Total (test code = 09550-6) 2.5 1.5-4.5 A/G Ratio (test code = 1759-0) 1.9 1.2-2.2 Bilirubin, Total (test code = 1974-2) 0.5 0.0-1.2 Alkaline Phosphatase (test code = 70 42-106 6768-6) AST (SGOT) (test code = 1920-8) 14 0-40 ALT (SGPT) (test code = 1742-6) 11 0-32 Uric Acid, [id number] 00:00:00 Test Item Value Reference Range Interpretation Comments Uric Acid (test code = 3084-1) 4.8 2.6-6.2 CBC With Differential/[id number] 00:00:00 Test Item Value Reference Range Interpretation [...] Granulocytes (test code = 0 Not Estab. 69857-3) Immature Grans (Abs) (test code = 0.0 0.0-0.1 86178-3) NRBC (test code = 78299-1) Hematology Comments: (test code = 48937-7) TSH reflex to [id number] 00:00:00 Test Item Value Reference Range Interpretation Comments TSH (test code = 86919-0) 1.070 0.450-4.500 Notes Date/Time Note Provider Source 2022-12-16 Addended by: JERRY MCCULLOUGH on: 12/16/2022 10: 26 AM [facility] Applause 10:26:31-00:00 Modules accepted: Orders Electronically signed by Jerry Mccullough LVN a t 12/16/2022 10:26 AM CDT 2022-12-16 [facility] 10:23:17-00:[address] Mary puckett. Sent pt Mychart message updating her of the medication and encouraging her to schedule a f/u appt for after to discuss results and plan of care. Electronically signed by Jerry Mccullough LVN a t 12/16/2022 10:26 AM CDT 2022-12-16 [facility] 09:12:39-00:00 My understanding is that if the spells are continuing, that We would order EMU. If the medication increase has not helped, then can you order the EMU? Also, could prescribe diclofenac 50 mg TID prn for the head pain. Can you get that order completed? Thanks. 2022-12-13 [facility] 13:30:02-00:00 Called and spoke with pt who said she woke up yesterday with a h/a which she went to the ED for. Reported having 2 seizures in the parking lot and then 1 seizure while at the ED. Pt reports she has been taking the increased Keppra since Tuesday. Encouraged pt to continue on increased dose and I would f/u with Dr. Lerma on ordering EMU as mentioned in ANTONIO : Seizures Patient has a decreased freq uency of seizures since starting Keppra 500 mg after her last visit with normal findings on EEG and MRI. Since patient has still had 2 recent episodes though, increasing the dosage of Keppra is warrante d. If she still has seizures after increasing the Keppra, then will recommend an EMU referral or long-term EEG to assess for epilepsy. - Increase Keppra (Levetiracetam) to 750 mg BID - f/u if another seizure occurs after starting i ncreased dose of Keppra Per Dr. Lerma, EMU to be ordered. Sent pt dilitronics message letting her know. Electronically signed by Jerry Mccullough LVN a t 12/13/2022 1:38 PM CDT 2022-12-13 Formatting of this note might be differe nt from the original. Luiza Dupont [facility] 12:46:33-00:00 Alma Delia Perdomo is a 22 year old female Patient has a headache right now She went to [facility] ER last night for her headache and had 3 seizure within 1 hour. ER gave patient more KEPPRA medications, and gave her Adivan injection and patient started feeling better and was discharged Patient is not having a head ache again and asking to speak with a nurse. Please advise Electronically signed by Luiza Dupont at 11/30 12:47 PM CDT 2022-12-13 [facility] 08:35:10-00:00 Sent pt Pilot Systemshart message gurdeep ing her know of the increased order of Keppra. Electronically signed by Jerry Mccullough LVN a t 12/13/2022 8:35 AM CDT 2022-12-10 Formatting of this note might be differe nt from the original. Curt Parkinson [facility] 10:21:22-00:00 Alma Delia Perdomo is a 22 year old female Patient calling stating at h er clinic visit this morning the provider stated he would increase her dosage of Keppra, however she does not see it on her after visit summary. Please advise. 2022-11-29 [facility] 10:36:54-00:00 Pl[address] referral 2022-11-18 Formatting of this note is different from the or iginal. [facility] 09:45:00-00:00 Images from the original note were not included. Venipuncture collection perf ormed by clean technique on the right anticubitus. Total of 1 attempts were made. Slight pressure and a bandage/dressing were applied to the site(s). The patient experienced no complications. The follow ing specimens were processed according to instructions and sent to [facility] laboratories per lab order on 11/18/2022 : LT BLUE SST 2 RED LAV 2 PPT DK GREEN (LiHep) DK GREEN (SodH) BUSBY DK BLUE (K2) DK BLUE (S) ACD Blood Culture NIPT/NTD Pt collected urine in dr office Electronically signed by Ada Marcelino at 2022 9:25 AM CDT
[2022-12-23 20:49] LABS: Absolute Lymphocytes (CBC) 2.6 K/uL (0.7-4.9); Hematocrit 38.8 % (36.0-45.0); MCV 87.5 fL (80-100); MPV 7.5 fL (7.6-11.3); Platelets 258 thou/uL (152-406); RBC Red Blood Cell Count 4.44 M/uL (3.86-4.86)
[2022-12-23 20:54] LABS: Protime INR 1.02
[2022-12-23 21:08] LABS: ALT/SGPT 35 U/L (13-56); AST/SGOT 16 U/L (15-37); Albumin 3.7 g/dL (3.4-5.0); Alkaline Phosphatase 51 U/L (45-117); BUN Blood Urea Nitrogen 9 mg/dL (7-18); Bicarbonate 26 mEq/L (21-32); Bilirubin Total 0.2 mg/dL (0.2-1.0); Creatine Phosphokinase 52 U/L (26-192); Glomerular Filtration Rate 96 ml/min (=/>90); Glucose Level 106 mg/dL (74-106); Potassium 3.6 mEq/L (3.5-5.1); Protein, Total 7.8 g/dL (6.4-8.2); Sodium Level 137 mEq/L (136-145); Troponin High Sensitivity 3.3 pg/mL (<58.9)
[2022-12-23 21:11] LABS: Bilirubin Direct < 0.1 mg/dL (0-0.2); Bilirubin Indirect, Calculated ND mg/dL (0.2-0.8)
[2022-12-23] MEDS ORDERED: ASPIRIN 81 MG CHEWABLE TABLET ONE (21:59)
[2022-12-23] MEDS ORDERED: LEVETIRACETAM 500 MG/5 ML VIAL IV ONE (21:59)
[2022-12-23] MEDS ORDERED: NA CHLORIDE 0.9% 100 ML ONE (22:07)
[2022-12-23] MEDS ORDERED: LORazepam 2 MG/ML VIAL ONE (22:07)
[2022-12-23 22:29] LABS: Specific Gravity 1.024 (1.005-1.030)
--- NOTE | 2022-12-23 22:44 | ER ---
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 pt reports when she woke up from her seizure today she was having chest pain and thought it was her asthma so took a breathing treatment and was till having chest pain. Coronavirus screen: At this time, the client does not indicate any symptoms associated with coronavirus-19. Ebola Screen: No symptoms or risks identified at this time. Initial Sepsis Screen: Does the patient meet any 2 criteria? No. Patient's initial sepsis screen is negative. Does the patient have a suspected source of infection? No. Patient's initial sepsis screen is negative. Risk Assessment: Do you want to hurt yourself or someone else? Patient reports no desire to harm self or others. Onset of symptoms was December 23, 2022. 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 - Social history:: Smoking status: Patient denies any tobacco usage or history of. - Family history:: not pertinent. Screenin:15 [facility] ED Fall Risk Assessment (Adult) History of falling in the last 3 months, me1 including since admission No falls in past 3 months (0 pts) Confusion or Disorientation No (0 pts) Intoxicated or Sedated No (0 pts) Impaired Gait No (0 pts) Mobility Assist Device Used No (0 pt) Altered Elimination No (0 pt) Score/Fall Risk Level 0 - 2 = Low Risk. Abuse screen: Denies threats or abuse. Nutritional screening: No deficits noted. Tuberculosis screening: No symptoms or risk factors identified. 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 Reports having seizures daily but after seizing reports she had chest pain. Denies fever, feeling ill, fatigue, chills. Pain: Complains of pain in chest. Neuro: Level of Consciousness is awake, alert, obeys commands, Oriented to person, place, time, situation, Appropriate for age. Cardiovascular: Capillary refill < 3 seconds Patient's skin is warm and dry. Respiratory: Airway is patent Respiratory effort is even, unlabored, Respiratory pattern is regular, symmetrical. Vital Signs: 20:29 BP 118 / 72; Pulse 112; Resp 16 S; Temp 99(TE); Pulse Ox 99% on R/A; Weight 67.59 kg as6 (R); Height 5 ft. 2 in. (R); Pain 6/10; 22:15 BP 114 / 63; Pulse 89; Resp 16 S; Pulse Ox 99% on R/A; me1 22:30 BP 114 / 70; Pulse 92; Resp 18 S; Pulse Ox 99% on R/A; me1 22:45 BP 103 / 62; Pulse 86; Resp 18 S; Pulse Ox 100% on R/A; me1 23:13 BP 106 / 71; Pulse 98; Resp 16; Pulse Ox 98% on R/A; me1 20:29 Body Mass Index 27.25 (67.59 kg, 157.48 cm) as6 20:29 Pain Scale: Adult as6 [place] Coma Score: 22:41 Eye Response: spontaneous(4). Motor Response: obeys commands(6). Verbal Response: sp4 oriented(5). Total: 15. 23:18 Eye Response: spontaneous(4). Motor Response: obeys commands(6). Verbal Response: me1 oriented(5). Total: 15. NIH Stroke Scale Scores: 22:41 NIHSS Score: 0 sp4 ED Course: 20:23 Patient arrived in ED. jj6 20:24 Nathan Fitzgerald MD is Attending Physician. sp4 20:31 Triage completed. as6 20:32 Arm band placed on. as6 20:43 Inserted saline lock: 20 gauge in left antecubital area, using aseptic technique. Blood as6 collected. 21:46 Arlyn Gray, RN is Primary Nurse. me1 23:14 No provider procedures requiring assistance completed. IV discontinued, intact, me1 bleeding controlled, No redness/swelling at site. Pressure dressing applied. 23:15 Patient has correct armband on for positive identification. Bed in low position. Call me1 light in reach. Side rails up X2. Provided Education on: POC. Verbalized understanding. . 23:18 Seizure precautions initiated. me1 Administered Medications: 21:54 Drug: Aspirin PO Chewable Tablet 324 mg Route: PO; me1 22:19 Drug: Ativan IVP 1 mg Route: IVP; Site: right antecubital; me1 22:19 Drug: Keppra IV 1000 mg Route: IV; Rate: bolus; Site: right antecubital; me1 Medication: 23:15 VIS not applicable for this client. me1 Outcome: 22:43 Discharge ordered by MD. bullock 23:19 Discharged to home with significant other. me1 23:19 Condition: stable 23:19 Discharge instructions given to patient, significant other, Instructed on discharge instructions, follow up and referral plans. medication usage, Demonstrated understanding of instructions, follow-up care, medications. 23:19 Patient left the ED. me1 NIH Stroke Scale - NIH Stroke Score Date: 12/23/2022 Time: 22:41 Total Score = 0 10. Dysarthria (speech clarity - read or repeat words) - 0(Normal) 11. Extinction and Inattention (visual/tactile/auditory/spatial/personal) - 0(No abnormality) 1a. Level of Consciousness (LOC) - 0(Alert) 1b. Level of Consciousness (LOC) (Month \T\ Age) - 0(Both) 1c. LOC Commands (Open \T\ Closes Eyes/Data Security Coordinator) - 0(Both) 2. Best Gaze (Lateral Gaze Paresis) - 0(Normal) 3. Visual Field Loss - 0(No visual loss) 4. Facial Palsy - 0(Normal) 5a. Left Arm: Motor (10-second hold) - 0(No drift) 5b. Right Arm: Motor (10-second hold) - 0(No drift) 6a. Left Leg: Motor (5-second hold - always test supine) - 0(No drift) 6b. Right Leg: Motor (5-second hold - always test supine) - 0(No drift) 7. Limb Ataxia (finger/nose \T\ heel/swanson - test with eyes open) - 0(Absent) 8. Sensory Loss (pinprick arms/legs/face) - 0(Normal) 9. Best Language: Aphasia (description/naming/reading) - 0(No aphasia) Initials: sp4 Signatures: Shanda Estevesj6 Romulo Cooper, RN RN as6 Nathan Fitzgerald MD MD sp4 Arlyn Gray RN RN me1
--- NOTE | 2022-12-23 22:45 | EDPHYS ---
Physician Documentation [facility] Name: Sue Perdomo Age: 22 yrs Sex: Female : 2000 Arrival Date: 12/23/2022 Time: 20:21 Bed 17 Private MD: ED Physician Nathan Fitzgerald HPI: 12/23 20:24 This 22 yrs old [place] Female presents to ER via Unassigned with complaints of sp4 Seizure, Chest Pain. 21:19 Very pleasant 22-year-old female with history of seizure disorder on Keppra presents sp4 with acute seizure onset 1 hour ago. Patient states she takes 750 mg Keppra p.o. twice a day. Patient has frequent breakthrough seizures and she had 1 seizure 1 hour ago that lasted about 15 seconds and described as generalized convulsive seizure. Patient reports she has developed midsternal chest pain and palpitations after her seizure. She mostly presents with a chest pain.. 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 - Social history:: Smoking status: Patient denies any tobacco usage or history of. - Family history:: not pertinent. ROS: 21:19 Constitutional: Negative for fever, chills, and weight loss, Cardiovascular: Negative sp4 for and edema, positive chest pain and positive palpitations Neuro: Negative for headache, weakness, numbness, tingling, positive seizure and positive breakthrough seizure 21:19 All other systems are negative. Exam: 21:19 Constitutional: This is a well developed, well nourished patient who is awake, alert, sp4 and in no acute distress. Head/Face: Normocephalic, atraumatic. Eyes: Pupils equal round and reactive to light, extra-ocular motions intact. Lids and lashes normal. Conjunctiva and sclera are not injected. Cornea within normal limits. Periorbital areas with no swelling, redness, or edema. ENT: Nares patent. No nasal discharge, no septal abnormalities noted. Tympanic membranes are normal and external auditory canals are clear. Oropharynx with no redness, swelling, or masses, exudates, or evidence of obstruction, uvula midline. Mucous membranes moist. Neck: Trachea midline, no thyromegaly or masses palpated, and no cervical lymphadenopathy. Supple, full range of motion without nuchal rigidity, or vertebral point tenderness. Chest/axilla: Normal chest wall appearance and motion. Nontender with no deformity. No lesions are appreciated. Cardiovascular: Regular rate and rhythm with a normal S1 and S2. No gallops, murmurs, or rubs. Normal PMI, no JVD. No pulse deficits. Respiratory: Lungs have equal breath sounds bilaterally, clear to auscultation and percussion. No rales, rhonchi or wheezes noted. No increased work of breathing, no retractions or nasal flaring. Abdomen/GI: Soft, non-tender, with normal bowel sounds. No distension or tympany. No guarding or rebound. No evidence of tenderness throughout. Back: No spinal tenderness. No costovertebral tenderness. Skin: Warm, dry with normal turgor. Normal color with no rashes, no lesions, and no evidence of cellulitis. MS/ Extremity: Pulses equal, no cyanosis. Neurovascular intact. Full, normal range of motion. Neuro: Awake and alert, GCS 15, oriented to person, place, time, and situation. Cranial nerves II-XII grossly intact. Motor strength 5/5 in all extremities. Sensory grossly intact. Psych: Awake, alert, with orientation to person, place and time. Behavior, mood, and affect are within normal limits 22:37 ECG was reviewed by the Attending Physician. There is normal sinus rhythm at a rate of sp4 79, there is basically normal EKG EKG time 2215, there is no ectopy, normal intervals Vital Signs: 20:29 BP 118 / 72; Pulse 112; Resp 16 S; Temp 99(TE); Pulse Ox 99% on R/A; Weight 67.59 kg as6 (R); Height 5 ft. 2 in. (R); Pain 6/10; 22:15 BP 114 / 63; Pulse 89; Resp 16 S; Pulse Ox 99% on R/A; me1 22:30 BP 114 / 70; Pulse 92; Resp 18 S; Pulse Ox 99% on R/A; me1 22:45 BP 103 / 62; Pulse 86; Resp 18 S; Pulse Ox 100% on R/A; me1 23:13 BP 106 / 71; Pulse 98; Resp 16; Pulse Ox 98% on R/A; me1 20:29 Body Mass Index 27.25 (67.59 kg, 157.48 cm) as6 20:29 Pain Scale: Adult as6 NIH Stroke Scale Scores: 22:41 NIHSS Score: 0 sp4 Regan Coma Score: 22:41 Eye Response: spontaneous(4). Motor Response: obeys commands(6). Verbal Response: sp4 oriented(5). Total: 15. 23:18 Eye Response: spontaneous(4). Motor Response: obeys commands(6). Verbal Response: me1 oriented(5). Total: 15. MDM: 20:27 Patient medically screened. sp4 22:41 Differential diagnosis: drug overdose, cardiac arrhythmia, seizure, TIA. Data reviewed: sp4 vital signs, nurses notes, old medical records, lab test result(s), EKG. 22:41 Consideration of Admission/Observation Escalation of care including sp4 admission/observation considered. ED course: Patient's work-up is unremarkable today. Patient was given Keppra loading dose. We will advised patient to contact her neurologist for increase in her Keppra dose to prevent breakthrough seizures, cardiac work-up is negative. Patient is stable for discharge home.. 12/23 20:27 Order name: Test, Urine; Complete Time: 22:36 [facility] 12/23 20:27 Order name: Basic Metabolic Panel; Complete Time: 22:36 [facility] 12/23 20:27 Order name: CBC with Diff; Complete Time: 22:36 [facility] 12/23 20:27 Order name: LFT's; Complete Time: 22:36 [facility] 12/23 20:27 Order name: PT-INR; Complete Time: 22:36 [facility] 12/23 20:27 Order name: Troponin HS; Complete Time: 22:36 [facility] 12/23 20:27 Order name: CK; Complete Time: 22:36 [facility] 12/23 20:27 Order name: EKG; Complete Time: 20:28 [facility] 12/23 20:27 Order name: Cardiac monitoring; Complete Time: 22:29 sp4 12/23 20:27 Order name: EKG - Nurse/Tech; Complete Time: 22:29 sp4 12/23 20:27 Order name: IV Saline Lock; Complete Time: 20:43 sp4 12/23 20:27 Order name: Labs collected and sent; Complete Time: 20:43 sp4 12/23 20:27 Order name: O2 Per Protocol; Complete Time: 22:29 sp4 12/23 20:27 Order name: O2 Sat Monitoring; Complete Time: 22:29 sp4 Administered Medications: 21:54 Drug: Aspirin PO Chewable Tablet 324 mg Route: PO; me1 22:19 Drug: Ativan IVP 1 mg Route: IVP; Site: right antecubital; me1 22:19 Drug: Keppra IV 1000 mg Route: IV; Rate: bolus; Site: right antecubital; me1 Disposition Summary: 12/23/22 22:43 Discharge Ordered Location: Home sp4 Problem: new sp4 Symptoms: have improved sp4 Condition: Stable sp4 Diagnosis - Other seizures sp4 - Chest pain, unspecified sp4 - Epilepsy with breakthrough seizures, noncardiac chest pain sp4 Followup: sp4 - With: Private Physician - When: 2 - 3 days - Reason: Recheck today's complaints Discharge Instructions: - Discharge Summary Sheet sp4 - Seizure, Adult sp4 Forms: - Leadership Thank You Letter sp4 NIH Stroke Scale - NIH Stroke Score Date: 12/23/2022 Time: 22:41 Total Score = 0 10. Dysarthria (speech clarity - read or repeat words) - 0(Normal) 11. Extinction and Inattention (visual/tactile/auditory/spatial/personal) - 0(No abnormality) 1a. Level of Consciousness (LOC) - 0(Alert) 1b. Level of Consciousness (LOC) (Month \T\ Age) - 0(Both) 1c. LOC Commands (Open \T\ Closes Eyes/Hand Hardener) - 0(Both) 2. Best Gaze (Lateral Gaze Paresis) - 0(Normal) 3. Visual Field Loss - 0(No visual loss) 4. Facial Palsy - 0(Normal) 5a. Left Arm: Motor (10-second hold) - 0(No drift) 5b. Right Arm: Motor (10-second hold) - 0(No drift) 6a. Left Leg: Motor (5-second hold - always test supine) - 0(No drift) 6b. Right Leg: Motor (5-second hold - always test supine) - 0(No drift) 7. Limb Ataxia (finger/nose \T\ heel/swanson - test with eyes open) - 0(Absent) 8. Sensory Loss (pinprick arms/legs/face) - 0(Normal) 9. Best Language: Aphasia (description/naming/reading) - 0(No aphasia) Initials: sp4 Signatures: Dispatcher [employer] Romulo Blackwell, RN RN as6 Nathan Fitzgerald MD MD sp4 Arlyn Gray RN RN me1
[2022-12-23 23:33] VITALS: TEMP 99
[2022-12-23 23:47] VITALS: BP 106/71; O2SAT 98
--- NOTE | 2022-12-24 15:21 | EKG ---
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
== END 2022-12-23 23:19 | disposition home or self-care (01) ==
LOC: ER 20:21
DX: R07.89 Other chest pain (principal); G40.509 Epileptic seizures related to external causes, not intractable, without status epilepticus; Z88.8 Allergy status to other drugs, medicaments and biological substances; Z91.013 Allergy to seafood; Z91.018 Allergy to other foods
CPT/HCPCS: 93005; 85025; 80048; 36415; 82550; 81025; 85610; 80076; 84484; 96375; 96374; 99284; J1953

== ENCOUNTER 2023-09-25 19:27 | Emergency (ER) | payer OTHER ==
--- OUTSIDE RECORDS SUMMARY | 2023-09-25 19:33 | XMS REPORT | Continuity of Care Document ---
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 have any questions about your follow up appointments?: NoAre you able to get to your appointment? Who will be taking you?: Yes (family)Home Health AssistanceHas the home health nurse contacted you since you've been home?: N/ASurvey - RecognitionIs there anything you would like to share about your recent hospitalization, or anyone you would like to recognize?: NoDo you have any suggestions for improvement?: NoDo you have any other questions or concerns at this time?: YesFuture Appointments: Future Appointments Provider Department Dept Phone 01/06/2023 8:30 AM Sandi Cade FNP [facility], [place] [phone] 01/14/2023 1:00 PM Simon Lerma MD [facility] Neurology, [place] [phone] 12054-8Pemrkdqxn encounter DjqtMJ1428-80-05W07:47:25Telephone encounter NoteTXT1.2.840.829171.1.13.104.2.7 .2.588057|1447992083IHTinjluvuc for patient idla47399-8VuxdBM843902116Akzreler te Rivas [address]vdGalvestonGalvestonTXTX[address] 38THJFIKZFCZGPNXABQCAVOS3346-32-32 T10:47:251.2.840.560863.1.72.3.15| 1.2.840.305286.1.13.104.2.7.2.7278 [id number] Pari See Pending sale to [facility] 2022-12-31 12:01:34 9bGeNUBwe8rO7Se/LLOi0QZ4kSUQ30nC6o jaBhKifFqwzdnJ+y4iSyUTrl3ehsIZ8786 -09-01T12:01:34 Problem: Seizures, Risk of / or ActualGoal: Absence of injury related to seizure activity12/31/2022 1201 by Ada Wilson RNOutcome: Adequate for discharge12/31/2022 0846 by Ada Wilson RNOutcome: Progressing as expectedGoal: Absence of seizure activity12/31/2022 1201 by Ada Wilson RNOutcome: Adequate for discharge12/31/2022 0846 by Ada Wilson RNOutcome: Progressing as expectedGoal: Successful induction of monitored seizure activity (Epilepsy Monitoring Unit - EMU)12/31/2022 1201 by Ada Wilson RNOutcome: Adequate for discharge12/31/2022 0846 by Ada Wilson, RNOutcome: Progressing as expected Problem: Falls, Risk ofGoal: Absence of falls12/31/2022 120 by Ada Wilson, RNOutcome: Adequate for discharge12/31/2022 0846 by Ada Wilson, RNOutcome: Progressing as expected Problem: Discharge PlanningGoal: Adequate for discharge12/31/2022 1201 by Ada Wilson, RNOutcome: Adequate for discharge12/31/2022 0846 by Ada Wilson, RNOutcome: Progressing as expectedGoal: Effective communication12/31/2022 1201 by Ada Wilson, RNOutcome: Adequate for discharge12/31/2022 0846 by Ada Wilson, RNOutcome: Progressing as expected 15130-6Qkzd of care ahsxOQ3567-95-03X01:01:50Plan of care noteTXT1.2.840.692124.1.13.104.2.7 .2.736457|7090797151IUWkypblzjh for patient jwus37027-0XqeyRU958297674Rogm Y Workman RNUT[address] [id number] 02HADQLVFOJPVBLGTKGUNRHH0874-91-78 T12:01:501.2.840.122000.1.72.3.15| 1.2.840.013416.1.13.104.2.7.2.7278 [id number] Ada Wilson [facility] 2022-12-31 08:46:47 3oEJmdldTpbXZ6KvVNZVcos6duvUUnSdKz RFvwXZoF8Za2PTr/5+7zCpEdjj3pz+2022T08:46:47 Problem: Seizures, Risk of / or ActualGoal: Absence of injury related to seizure activityOutcome: Progressing as expectedGoal: Absence of seizure activityOutcome: Progressing as expectedGoal: Successful induction of monitored seizure activity (Epilepsy Monitoring Unit - EMU)Outcome: Progressing as expected Problem: Falls, Risk ofGoal: Absence of fallsOutcome: Progressing as expected Problem: Discharge PlanningGoal: Adequate for dischargeOutcome: Progressing as expectedGoal: Effective communicationOutcome: Progressing as expected 30087-3Zmsg of care kofrZU8529-87-16U41:46:53Plan of care noteTXT1.2.840.404244.1.13.104.2.7 .2.393288|5413039834TUZbiqdgjzw for patient ykhr34592-7JnyvNRGNNFROXR[address] StreetTXTX[address] 98AWZPVCRTEFUKSYHRBKXMIC4811-63-30 T08:46:531.2.840.339381.1.72.3.15| 1.2.840.885508.1.13.104.2.7.2.7278 [id number] [facility] 2022-12-31 04:47:40 n8t43zMKYDHY3lx8Vj7/QxKSVf+VPPgt5F LNhAIU8o1xAvniOmiANkZ3nVReQFcn7864 -09-01T04:47:40 Problem: Seizures, Risk of / or ActualGoal: Absence of injury related to seizure activityOutcome: Progressing as expectedGoal: Absence of seizure activityOutcome: Progressing as expectedGoal: Successful induction of monitored seizure activity (Epilepsy Monitoring Unit - EMU)Outcome: Progressing as expected Problem: Falls, Risk ofGoal: Absence of fallsOutcome: Progressing as expected Problem: Discharge PlanningGoal: Adequate for dischargeOutcome: Progressing as expectedGoal: Effective communicationOutcome: Progressing as expected 78462-8Soln of care hnwfDL2839-70-76J33:47:44Plan of care noteTXT1.2.840.968945.1.13.104.2.7 .2.545611|3340137553ZYHdwdwthts for patient lbtd11025-1AhxhGE008375111Yrjsxok Donjuan RN[address]vdGalvestonGalvestonTXTX[address] 19WFZTNVDZSUXSRABCYXDRNH3252-93-55 T04:47:441.2.840.484249.1.72.3.15| 1.2.840.745462.1.13.104.2.7.2.7278 [id number] Tiffanie Duran RN [facility] 2022-12-30 10:27:05 5BzYwj4mWawTVPODL/ri1GtNwnW373Ulro B2KeIusg1rupDqySxJzDoV8enoKnSn7724 -08-31T10:27:05 Problem: Seizures, Risk of / or ActualGoal: Absence of injury related to seizure activityOutcome: Progressing as expectedGoal: Absence of seizure activityOutcome: Progressing as expectedGoal: Successful induction of monitored seizure activity (Epilepsy Monitoring Unit - EMU)Outcome: Progressing as expected Problem: Falls, Risk ofGoal: Absence of fallsOutcome: Progressing as expected Problem: Discharge PlanningGoal: Adequate for dischargeOutcome: Progressing as expectedGoal: Effective communicationOutcome: Progressing as expected 41206-1Jijp of care nmifFQ1206-47-72S34:27:10Plan of care noteTXT1.2.840.816020.1.13.104.2.7 .2.814437|5868572673VMOdemfiarh for patient wyeq61994-8NoogQLEQNYBQKI[address]vdGalvestonGalvestonTXTX[address] 34POZXXKILBTEGOADCSKVSMY3934-69-01 T10:27:101.2.840.470962.1.72.3.15| 1.2.840.291950.1.13.104.2.7.2.7278 [id number] [facility] 2022-12-30 05:11:38 uVIayKuL0NwReA8G+cPK2YSC8Lx/FjPc87 8rHWzAQ+QRGJazidCJFO7+tisIdMbV6128 -08-31T05:11:38 Problem: Seizures, Risk of / or ActualGoal: Absence of injury related to seizure activityOutcome: Progressing as expectedGoal: Absence of seizure activityOutcome: Progressing as expectedGoal: Successful induction of monitored seizure activity (Epilepsy Monitoring Unit - EMU)Outcome: Progressing as expected Problem: Falls, Risk ofGoal: Absence of fallsOutcome: Progressing as expected Problem: Discharge PlanningGoal: Adequate for dischargeOutcome: Progressing as expectedGoal: Effective communicationOutcome: Progressing as expected 03318-5Eslg of care cxugKH6147-91-13Y90:11:41Plan of care noteTXT1.2.840.476519.1.13.104.2.7 .2.232103|8726148086ZIYsgsddmpg for patient bdsk01148-5CskgZN882132326Agfgp White RNUT[address] HmvhZgdkhbfodNculeufrkXQUB94826988 04AFAGKUKICUGUZBIJZAYAZN9156-31-22 T05:11:411.2.840.364730.1.72.3.15| 1.2.840.225712.1.13.104.2.7.2.7278 [id number] Karla Prado RN [facility] 2022-12-29 11:13:16 f7ttaa3Um3D5k2tlNCqcakpmvddLOah5j3 JEKlpcwejql/lPKM5QKssOlR/uzXrd23872022T11:13:16 Problem: Seizures, Risk of / or ActualGoal: Absence of injury related to seizure activityOutcome: Progressing as expectedGoal: Absence of seizure activityOutcome: Progressing as expectedGoal: Successful induction of monitored seizure activity (Epilepsy Monitoring Unit - EMU)Outcome: Progressing as expected Problem: Falls, Risk ofGoal: Absence of fallsOutcome: Progressing as expected Problem: Discharge PlanningGoal: Adequate for dischargeOutcome: Progressing as expectedGoal: Effective communicationOutcome: Progressing as expected 02015-0Jtxm of care bktdKJ9568-83-76Z43:13:21Plan of care noteTXT1.2.840.135050.1.13.104.2.7 .2.049090|4049854564ZXUtkeraksq for patient dagp38523-2CamzNVJOVQCVOK[address] StreetTXTX[address] 53ORKOYSQIBKFXYKGGJLOYED6762-93-68 T11:13:211.2.840.020279.1.72.3.15| 1.2.840.687372.1.13.104.2.7.2.7278 [id number] [facility] 2022-12-28 11:21:44 dCAtS3WHvUXTKDtKdJF4M2FXOwJKUoVEnh UsY2U6ggwK0SGK1xg0w2r08QOAr5zX1809 -08-29T11:21:44 Problem: Seizures, Risk of / or ActualGoal: Absence of injury related to seizure activityOutcome: Progressing as expectedGoal: Absence of seizure activityOutcome: Progressing as expectedGoal: Successful induction of monitored seizure activity (Epilepsy Monitoring Unit - EMU)Outcome: Progressing as expected Problem: Falls, Risk ofGoal: Absence of fallsOutcome: Progressing as expected Problem: Discharge PlanningGoal: Adequate for dischargeOutcome: Progressing as expectedGoal: Effective communicationOutcome: Progressing as expected 87966-2Mgkg of care srebUK0293-00-38S13:21:48Plan of care noteTXT1.2.840.691897.1.13.104.2.7 .2.607444|4535754031UIShrnwubyp for patient pgsg40338-6GbslRWKNKZFWEA[address]TXTX[address] 21RIKYRAJHKMEJGUDHSGXVND2679-33-12 T11:21:481.2.840.321871.1.72.3.15| 1.2.840.877002.1.13.104.2.7.2.7278 [id number] [facility] 2022-12-27 11:43:00 F7VrvbDBACmvo5lfOtkaH1//cqG2Do+Ihq A6/hk9jRaGFLSSftg84RRe9EVML/fB76282022T11:43:00 Problem: Seizures, Risk of / or ActualGoal: Absence of injury related to seizure activityOutcome: Progressing as expectedGoal: Absence of seizure activityOutcome: Progressing as expectedGoal: Successful induction of monitored seizure activity (Epilepsy Monitoring Unit - EMU)Outcome: Progressing as expected Problem: Falls, Risk ofGoal: Absence of fallsOutcome: Progressing as expected Problem: Discharge PlanningGoal: Adequate for dischargeOutcome: Progressing as expectedGoal: Effective communicationOutcome: Progressing as expected 06730-1Lrwy of care buxxJJ3528-48-05C88:43:05Plan of care noteTXT1.2.840.210241.1.13.104.2.7 .2.913100|6260364237KISnxjblull for patient onsg11833-9EmwtPYIFMRGLAQ[address] StreetTXTX[address] 70KXJOZRNQAIGAISCAQETPZZ7378-37-26 T11:43:051.2.840.907538.1.72.3.15| 1.2.840.030573.1.13.104.2.7.2.7278 [id number] [facility] 2022-12-16 10:26:31 df+2jDy0A+lkNs2F4IbrjeQtn7DyvX0Alg o+QOTl6uRCXI2U+ex3k/22UNQuniKx9166 -08-17T10:26:31 Addended by: TARSHA MCCULLOUGH on: 12/16/2022 10:26 AM Modules accepted: Orders 15488-8Rpmhoavp YhmmklamXV3084-16-97B97:26:31Adden dum DocumentTXT1.2.840.110643.1.13.104 .2.7.2.988963|0763883465VYDqheoucx e for patient ylog24294-6PyveMUVHVFRUUS[address]TXTX[address] 59QVUGAFBJZJZJBMAYWWMNJM2734-66-88 T10:26:311.2.840.485147.1.72.3.15| 1.2.840.890022.1.13.104.2.7.2.7278 [id number] [facility] 2022-12-16 10:23:17 xiALvofr2m5WD4DnQr2g7wt1eh/Y5GQwTT YLaDIYa3BTTvHWnTx5NS42aYB6ztjx2592 -08-17T10:23:[address] Lerma. Sent pt Modo[employer]st message updating her of the medication and encouraging her to schedule a f/u appt for after to discuss results and plan of care. 85535-9Bktzgtvzn encounter EifjPP0218-59-44C80:26:05Telephone encounter NoteTXT1.2.840.998361.1.13.104.2.7 .2.424904|8535356753REYmucareaa for patient uuet17866-7BbtgQSSXXKZJCH[address]vestonTX[place] 23GDATUBWKYATNPMMBMNNBYR3089-62-09 T10:26:051.2.840.947611.1.72.3.15| 1.2.840.895049.1.13.104.2.7.2.7278 [id number] [facility] 2022-12-16 09:12:39 kALGwXaEYUG9yIoNQzqa+exdL8sBfv1KOl hurWSUwRkwzsesQ8+ifU3xYkO9HG9m7391 -08-17T09:12:39 My understanding is that if the spells are continuing, that We would order EMU. If the medication increase has not helped, then can you order the EMU? Also, could prescribe diclofenac 50 mg TID prn for the head pain. Can you get that order completed? Thanks. 46778-5Erqrpkvxp encounter OtuaEH5428-95-80J07:15:06Telephone encounter NoteTXT1.2.840.198785.1.13.104.2.7 .2.707024|8502097179GKBrdfvzefr for patient futj15047-7GqepWWABDORHPE[address]TXTX[address] 67XXVMBQDZHBBIDHVOXAGWHF7762-65-09 T09:15:061.2.840.890912.1.72.3.15| 1.2.840.643737.1.13.104.2.7.2.7278 [id number] [facility] 2022-12-13 13:30:02 NKRzuveEtUuWsk60XYlrqF6Ph9tiQude+C Brit/F6RYI2RTjbrteRjScwC4J/7h4X7245T13:30:02 Called and spoke with pt who said [...] on ordering EMU as mentioned in ANTONIO :SeizuresPatient has a decreased frequency of seizures since starting Keppra 500 mg after her last visit with normal findings on EEG and MRI. Since patient has still had 2 recent episodes though, increasing the dosage of Keppra is warranted. If she still has seizures after increasing the Keppra, then will recommend an EMU referral or long-term EEG to assess for epilepsy. - Increase Keppra (Levetiracetam) to 750 mg BID- f/u if another seizure occurs after starting increased dose of KeppraPer Dr. Lerma, EMU to be ordered. Sent pt [employer] message letting her know. 42106-9Vlqckdajy encounter QayoZX3931-58-10C48:38:32Telephone encounter NoteTXT1.2.840.234082.1.13.104.2.7 .2.697556|4531949654ILUabasfclv for patient ixgp86675-6EpojFKVTKLHZDQ[address] LnedKpoerzbhsOluqnfatjUAIV86067506 65CLOIZABEGGGWXOFHZZHNQT4132-42-35 T13:38:321.2.840.941693.1.72.3.15| 1.2.840.119733.1.13.104.2.7.2.7278 [id number] [facility] 2022-12-13 12:46:33 V3hFbubWcdxyeCKx3FxCLJ8f4VBUvTgMnF [facility]/Vlv5nm32j9CMxrGV8d4555 -08-14T12:46:33 Alma Delia Perdomo is a 22 year old femalePatient has a headache right nowShe went [facility] and had 3 seizure within 1 hour. ER gave patient more KEPPRA medications, and gave her Adivan injection and patient started feeling better and was dischargedPatient is not having a headache again and asking to speak with a nurse. Please advise 16041-2Qlbifcafu encounter ZrncAZ9362-68-29T70:47:42Telephone encounter NoteTXT1.2.840.227309.1.13.104.2.7 .2.339307|[id number] for patient pqyx99824-7RwndHA079855129Xjiwu [id number] 49NKFGBOCUOEWNDXYUOPDJBZ4496-68-81 T12:47:421.2.840.761556.1.72.3.15| 1.2.840.927787.1.13.104.2.7.2.7278 [id number] Luiza Dupont [facility] 2022-12-13 08:35:10 CYodbH/1DDP034AZnbQyskUo+4axhhv7Cf n/lzqvaqFCwlE/6rjb3fNjYQ6mv+/r202T08:35:10 Sent pt [employer] message letting her know of the increased order of Keppra. 83647-9Kpjkckvrl encounter KrgqCB5244-77-39S08:35:41Telephone encounter NoteTXT1.2.840.133895.1.13.104.2.7 .2.591142|[id number] for patient ilvs17471-5MmgqEYAFNKKFUU[id number] 83LUHFXWPSMYBWVWWTKHAJGK2988-89-22 T08:35:411.2.840.849557.1.72.3.15| 1.2.840.043165.1.13.104.2.7.2.7278 [id number] [facility] 2022-12-10 10:21:22 X4ovRdxTdC640GNQbRZxycSyf8dlxeJesu 0hfXfBx5dTNL+vcS1Y1ZSiJkPUUm2g1920 -08-11T10:21:22 Alma Delia Perdomo is a 22 year old femalePatient calling stating at her clinic visit this morning the provider stated he would increase her dosage of Keppra, however she does not see it on her after visit summary. Please advise. 76877-4Yprkjkerk encounter FxaaZI8198-93-10H36:22:51Telephone encounter NoteTXT1.2.840.795815.1.13.104.2.7 .2.483126|[id number] for patient [id number] S [address] Qz[id number] 57JJHXDBQUBCOPMTGJIZRRJA4327-80-74 T10:22:511.2.840.081631.1.72.3.15| 1.2.840.119606.1.13.104.2.7.2.7278 [id number] Sandi Parkinson [facility] 2022-11-29 10:36:54 Sjvi9BwH14klLDuR2FWB5kw9HkOMaGaaWz cN3e3BTKb+VdbrXUpnva3iqgDkZSoX9571 -07-31T10:36:54 Placing referral 20372-2Hpjvqfyop encounter LnxwJW5016-70-14U38:37:34Telephone encounter NoteTXT1.2.840.427360.1.13.104.2.7 .2.233159|[id number] for patient hzim66226-6NayyPOVHHNIRGF[id number]| [id number] [facility] 2022-11-18 09:45:00 [id number] -07-20T09:45:00 Images from the original note were not included.Venipuncture collection performed by clean technique on the right anticubitus. Total of 1 attempts were made. Slight pressure and a bandage/dressing were applied to the site(s). The patient experienced no complications. The following specimens were processed according to instructions and sent to [facility] laboratories per lab order on 11/18/2022: LT BLUE SST 2 RED LAV 2 PPT DK GREEN (LiHep) DK GREEN (SodH) BUSBY DK BLUE (K2) DK BLUE (S) ACD Blood Culture NIPT/NTD Pt [place] in [place] office [id number]:25:45Nurse [id number] for patient [id number]:[id number]| [id number] [facility]
[2023-09-25] MEDS ORDERED: LEVETIRACETAM 500 MG/5 ML VIAL IV ONE ×2 (20:03→21:55)
[2023-09-25] MEDS ORDERED: NA CHLORIDE 0.9% 100 ML ONE ×3 (20:03→23:14)
[2023-09-25 20:55] LABS: Absolute Basophils 0.1 K/uL (0-0.5); Absolute Eosinophils 0.7 K/uL (0-0.5); Absolute Lymphocytes (CBC) 1.9 K/uL (0.7-4.9); Absolute Monocytes 0.5 K/uL (0.1-1.3); Absolute Neutrophil 5.9 K/uL (1.8-8.0); Basophils % 0.7 % (0-1.3); Eosinophils % 7.4 % (0-4.4); Hematocrit 40.6 % (36.0-45.0); Hemoglobin 13.9 g/dL (12.0-15.0); Lymphocytes % 21.2 % (15.3-44.8); MCH 30.1 pg (27.0-35.0); MCHC 34.1 g/dL (32.0-36.0); MCV 88.4 fL (80-100); MPV 7.6 fL (7.6-11.3); Monocytes % 5.1 % (3.3-12.3); Neutrophils % 65.6 % (41.7-73.7); Nucleated Red Blood Cells % 0.1 % (0-0); Platelets 304 thou/uL (152-406); Red Cell Distribution Width 12.8 % (12.1-15.2)
--- NOTE | 2023-09-25 20:55 | RAD REPORT ---
EXAM DESCRIPTION: CT - Head Brain Wo Cont - 09/25/2023 8:45 pm CLINICAL HISTORY: SEIZURE COMPARISON: Head Brain Wo Cont dated 12/13/2022 TECHNIQUE: All CT scans are performed using dose optimization technique as appropriate and may inclu de automated exposure control or mA/KV adjustment according to patient size. FINDINGS: No intracranial hemorrhage, hydrocephalus or extra-axial fluid collection.No areas of brai n edema or evidence of midline shift. The paranasal sinuses and mastoids are clear. The calvarium is intact. IMPRESSION: No acute intracranial abnormality.
[2023-09-25 21:14] LABS: Anion Gap 5.3 mEq/L (5.0-15.0); BUN Blood Urea Nitrogen 8 mg/dL (7-18); Bicarbonate 28 mEq/L (21-32); Glomerular Filtration Rate 116 ml/min (=/>90); Glucose Level 89 mg/dL (74-106); Potassium 3.3 mEq/L (3.5-5.1); Sodium Level 135 mEq/L (136-145)
[2023-09-25 21:15] LABS: Troponin High Sensitivity < 3.0 pg/mL (<58.9)
--- NOTE | 2023-09-25 21:16 | RAD REPORT ---
EXAM DESCRIPTION: RAD - Chest Single View - 09/25/2023 9:09 pm CLINICAL HISTORY: COUGH COMPARISON: Chest Single View dated 04/30/2021 FINDINGS: Lines: None. Lungs: Chronic airway thickening in the left perihilar region. No acute process. Pleural: No significant pleural effusions or pneumothorax. Cardiac: The heart size is within normal limits. Mediastinum: Within normal limits. Bones: No acute fractures. Other: None IMPRESSION: No acute cardiopulmonary disease.
[2023-09-25] MEDS ORDERED: POTASSIUM CL SA 10 MEQ TAB PO ONE (21:47)
[2023-09-25 21:53] LABS: Specific Gravity 1.007 (1.005-1.030); Sqamous Epithelial <5 /HPF (None Seen); Urine Bacteria <20 /HPF (<20); Urine Bilirubin NEGATIVE (Negative); Urine Blood Negative (Negative); Urine Clarity Turbid (Clear); Urine Color Colorless (Yellow); Urine Culture Reflex Order NOT NEEDED; Urine Glucose NEGATIVE (Negative); Urine Ketones NEGATIVE (Negative); Urine Micro Reflex YN NO BILL MICROSCOPIC; Urine Nitrite NEGATIVE (Negative); Urine Protein NEGATIVE (Negative); Urine RBC <5 /HPF (None Seen); Urine Urobilinogen Normal (Normal); Urine WBC <5 /HPF (<5)
[2023-09-25 21:55] LABS: Specific Gravity 1.007 (1.005-1.030)
[2023-09-25] MEDS ORDERED: LORazepam 2 MG/ML VIAL ONE (21:55)
--- NOTE | 2023-09-25 22:00 | EDPHYS ---
Physician Documentation [facility] Name: Sue Perdomo Age: 23 yrs Sex: Female : 2000 Arrival Date: 09/25/2023 Time: 19:27 Bed 3 Private MD: ED Physician Satinder Alfaro HPI: 09/24 19:35 This 23 yrs old Female presents to ER via Unassigned with complaints of Seizure. ec2 19:35 Patient arrives today for evaluation of seizure. Patient with history of seizure ec2 disorder, on Keppra, recently had her medications increased to 750 mg of Keppra twice a day, this was changed 2 weeks ago. Patient reports no fevers or chills, no nausea or vomiting. Patient reports no cough and cold symptoms. Patient denies any urinary complaints. LMP was approximately 1 month ago and is due for.. 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 - Infectious Disease History:: Denies. - Social history:: Smoking status: Reported history of juuling and/or vaping. ROS: 19:35 Constitutional: as per hpi ec2 Exam: 19:35 Constitutional: GEN: NAD Head: atraumatic Eyes: EOMI Ears: External ears are ec2 normal. CV: regular rate LUNGS: no respiratory distress ABD: non-distended SKIN: no evidence of rashes MSK: no evidence of trauma NEURO: moves all extremities equally, cranial nerves II through XII intact, strength intact all 4 extremities, no pronator drift Vital Signs: 19:40 BP 118 / 82; Pulse 85; Resp 20; Temp 98.5; Pulse Ox 99% ; Weight 68.04 kg; Height 5 ft. kb3 2 in. ; Pain 8/10; 23:27 BP 125 / 82; Pulse 89; Resp 16; Pulse Ox 100% on R/A; jb4 19:40 Body Mass Index 27.44 (68.04 kg, 157.48 cm) kb3 19:40 Pain Scale: Adult kb3 [place] Coma Score: 19:41 Eye Response: spontaneous(4). Motor Response: obeys commands(6). Verbal Response: kb3 oriented(5). Total: 15. MDM: 19:30 Patient medically screened. ec2 19:35 Data reviewed: vital signs. ED course: Patient arrives today for evaluation of seizure ec2 activity. Examination remarkable for well-appearing neuro intact individual is otherwise in no acute distress with reassuring examination. Will obtain lab work, urine studies, chest x-ray as well as CT scan of the head. Differential diagnoses include process such as intracranial mass, electrolyte disturbance, . 20:02 ED course: EKG independently reviewed and interpreted by me, shows normal sinus rhythm, ec2 rate of 70, no acute ST segment elevations, intervals are nonconcerning.. 21:08 ED course: CBC is reassuring, CT scan of the head independently reviewed and ec2 interpreted by me, shows no acute intracranial process. Chest x-ray independently reviewed and interpreted by me, shows no acute intrathoracic process. . 21:09 ED course: On reassessment patient is well-appearing in no acute distress. No evidence ec2 of recurrence of seizure. Pending lab work.. 21:23 ED course: Metabolic profile shows slight hypokalemia with potassium of 3.3, troponin ec2 within normal ranges. . 21:58 ED course: Patient reportedly had another seizure that was witnessed by significant ec2 other at the bedside, on reassessment patient is well-appearing in no acute distress. Will give patient Ativan and additional gram of Keppra. . 21:59 ED course: Given that the patient required continuous EEG, will transfer the patient ec2 for neuro ICU placement.. 22:28 ED course: I discussed case with Dr. CARPENTER, neurology at [facility] who ec2 recommended 200 mg Vimpat load and recommends hospitalist primary admission. Will discuss with hospitalist as well.. 22:44 ED course: I discussed case with hospitalist who agrees to accept the patient for ec2 transfer. Family updated regarding plan of care.. 09/24 19:35 Order name: Basic Metabolic Panel; Complete Time: 21:23 ec2 09/24 19:35 Order name: CBC with Diff; Complete Time: 21:07 ec09/24 19:35 Order name: Troponin HS; Complete Time: 21:23 ec2 09/24 19:35 Order name: UAM; Complete Time: 21:58 ec2 09/24 19:35 Order name: Test, Urine; Complete Time: 21:58 ec2 09/24 19:35 Order name: XRAY Chest (1 view); Complete Time: 21:23 ec2 09/24 19:35 Order name: CT Head Brain wo Cont; Complete Time: 21:07 ec2 09/24 19:35 Order name: Cardiac monitoring; Complete Time: 20:08 09/24 19:35 Order name: EKG - Nurse/Tech; Complete Time: 20:08 09/24 19:35 Order name: IV Saline Lock; Complete Time: 20:19 ec09/24 19:35 Order name: Labs collected and sent; Complete Time: 20:20 09/24 19:35 Order name: O2 Per Protocol; Complete Time: 20:08 ec09/24 19:35 Order name: O2 Sat Monitoring; Complete Time: 20:08 09/24 21:25 Order name: Misc. Order: urine please; Complete Time: 21:36 ec2 Administered Medications: 20:19 Drug: Keppra IV 1000 mg IV at calculated rate once Route: IV; Rate: calculated rate; jb4 Site: left antecubital; 21:48 Drug: Potassium Chloride PO 40 mEq PO once Route: PO; bm8 22:04 Drug: Keppra IV 1000 mg IV at calculated rate once Route: IV; Rate: calculated rate; jb4 Site: left antecubital; 22:04 Drug: Ativan IVP 2 mg IVP once Route: IVP; Site: left antecubital; jb4 23:28 Drug: Vimpat IV 200 mg IV at calculated rate once; administer over 30-60 minutes; (mix jb4 in 100 mL NS) Route: IV; Rate: calculated rate; Site: left antecubital; 23:28 Drug: NS 0.9% IV 1000 ml IV at 1 bolus Per protocol; 1000 mL bolus Route: IV; Rate: 1 jb4 bolus; Site: left antecubital; Disposition Summary: 09/25/23 21:59 Transfer Ordered Notes: Transfer Location: Other Acute Care Facility ec2 Reason: Higher level of care ec2 Condition: Stable ec2 Problem: new ec2 Symptoms: have improved ec2 Accepting Physician: transferring doc(09/26/23 00:17) jb4 Diagnosis - Epilepsy, unspecified, not intractable, with status epilepticus ec2 Discharge Instructions: - Discharge Summary Sheet ec2 - Potassium Content of Foods ec2 - Seizure, Adult ec2 Forms: - Medication Reconciliation Form ec2 - SBAR form ec2 Critical care time excluding procedures: 21:58 Critical care time: Bedside Care: 30 minutes, Consultation: 10 minutes. Total time: 40 ec2 minutes Signatures: Dispatcher [employer] EDBuddy Allen, RN RN jb4 Nuha Hawley, RN RN kb3 Satinder Alfaro MD MD ec2 Matthias Resendiz, RN RN bm8 Corrections: (The following items were deleted from the chart) 19:36 19:36 Chest Single View+RAD.RAD.BRZ ordered. EDMS EDMS 19:36 19:36 Head Brain Wo Cont+CT.RAD.BRZ ordered. EDMS EDMS 19:37 19:35 Patient medically screened. ec2 ec2 09/25 00:17 09/24 21:59 transferring doc ec2 jb4
--- NOTE | 2023-09-25 22:00 | ER ---
Nurse's Notes [facility] Name: Sue Perdomo Age: 23 yrs Sex: Female : 2000 Arrival Date: 09/25/2023 Time: 19:27 Bed 3 Private MD: Diagnosis: Epilepsy, unspecified, not intractable, with status epilepticus Presentation: 09/24 19:40 Chief complaint: Patient states: Pt reports 5 seizures since this morning. Coronavirus kb3 screen: Vaccine status: Patient reports receiving the 2nd dose of the covid vaccine. Client denies travel out of the [place] in the last 14 days. Ebola Screen: Patient negative for fever greater than or equal to 101.5 degrees Fahrenheit, and additional compatible Ebola Virus Disease symptoms Patient denies exposure to infectious person. Patient denies travel to an Ebola-affected area in the 21 days before illness onset. Initial Sepsis Screen: Does the patient meet any 2 criteria? No. Patient's initial sepsis screen is negative. Does the patient have a suspected source of infection? No. Patient's initial sepsis screen is negative. Risk Assessment: Do you want to hurt yourself or someone else? Patient reports no desire to harm self or others. Onset of symptoms was September 25, 2023. 19:40 Method Of Arrival: Wheelchair banner 19:40 Acuity: PRUDENCIO 2 kb3 Triage Assessment: 19:41 General: Appears in no apparent distress. Behavior is calm, cooperative. Pain: kb3 Complains of pain in left mid back and right mid back. Neuro: No deficits noted. Seizure activity reported prior to arrival. Cardiovascular: Rhythm is sinus rhythm. Respiratory: No deficits noted. GI: No deficits noted. 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 - Infectious Disease History:: Denies. - Social history:: Smoking status: Reported history of juuling and/or vaping. Vital Signs: 19:40 BP 118 / 82; Pulse 85; Resp 20; Temp 98.5; Pulse Ox 99% ; Weight 68.04 kg; Height 5 ft. kb3 2 in. ; Pain 8/10; 23:27 BP 125 / 82; Pulse 89; Resp 16; Pulse Ox 100% on R/A; jb4 19:40 Body Mass Index 27.44 (68.04 kg, 157.48 cm) kb3 19:40 Pain Scale: Adult kb3 [place] Coma Score: 19:41 Eye Response: spontaneous(4). Motor Response: obeys commands(6). Verbal Response: kb3 oriented(5). Total: 15. ED Course: 19:35 Patient arrived in ED. kb3 19:35 Satinder Alfaro MD is Attending Physician. ec2 19:41 Triage completed. kb3 19:41 Arm band placed on right wrist. Patient placed on a stretcher. kb3 20:47 CT Head Brain wo Cont In Process Unspecified. EDMS 21:10 XRAY Chest (1 view) In Process Unspecified. EDMS 21:45 Matthias Resendiz, RN is Primary Nurse. bm8 22:10 [address] [facility] transfer eminence at 2206. Connected with Amalia at 2208. mb4 22:53 Acceptance at [facility] \T\[id number]. Admin approval by Amalia Witt. Accepting mb4 physician Pratibha Gomez. 22:54 [facility] ambulance provided 60-90 minute ETA. mb4 Administered Medications: 20:19 Drug: Keppra IV 1000 mg IV at calculated rate once Route: IV; Rate: calculated rate; jb4 Site: left antecubital; 21:48 Drug: Potassium Chloride PO 40 mEq PO once Route: PO; bm8 22:04 Drug: Keppra IV 1000 mg IV at calculated rate once Route: IV; Rate: calculated rate; jb4 Site: left antecubital; 22:04 Drug: Ativan IVP 2 mg IVP once Route: IVP; Site: left antecubital; jb4 23:28 Drug: Vimpat IV 200 mg IV at calculated rate once; administer over 30-60 minutes; (mix jb4 in 100 mL NS) Route: IV; Rate: calculated rate; Site: left antecubital; 23:28 Drug: NS 0.9% IV 1000 ml IV at 1 bolus Per protocol; 1000 mL bolus Route: IV; Rate: 1 jb4 bolus; Site: left antecubital; Outcome: 21:59 ER care complete, transfer ordered by . ec2 09/25 00:17 Patient left the ED. jb4 Signatures: Dispatcher [employer] EDBuddy Allen RN RN jb4 Glenys Joel mb4 Nuha Hawley, RN RN kb3 Satinder Alfaro MD MD ec2 Matthias Resendiz, RN RN bm8
[2023-09-25] MEDS ORDERED: LACOSAMIDE 200 MG/20 ML VIAL IV ONE (23:09)
[2023-09-25] MEDS ORDERED: NA CHLORIDE 0.9% 1,000 ML ONE (23:14)
[2023-09-26 00:47] VITALS: BP 125/82; TEMP 98.5; O2SAT 100
--- NOTE | 2023-09-27 14:17 | EKG ---
Test Date: 2023-09-25 Test Time: 19:58:49 Production Miner: MALDONADO MEASUREMENT RESULTS: Intervals: Rate: 70 LA: 158 QRSD: 78 QT: 364 QTc: 393 [place]: P: 58 LA: 158 QRS: 94 T: 56 INTERPRETIVE STATEMENTS: Normal sinus rhythm with sinus arrhythmia Rightward axis Borderline ECG Compared to ECG 12/23/2022 22:15:44 Right-axis deviation now present Electronically Signed On 09-27-23 14:12:41 CDT by Kwadwo Baldwin
== END 2023-09-26 00:17 ==
LOC: ER 19:27
DX: G40.901 Epilepsy, unspecified, not intractable, with status epilepticus (principal)
CPT/HCPCS: 93005; 85025; 81001; 80048; 36415; 81025; 84484; 70450; 71045; 96375; 96374; 99284; J1953 ×2; C9254; J7030

== ENCOUNTER 2024-02-17 21:37 | Emergency (ER) | payer OTHER ==
[2024-02-17] MEDS ORDERED: NA CHLORIDE 0.9% 1,000 ML ONE (22:21)
[2024-02-17 22:33] LABS: Absolute Basophils 0.1 K/uL (0-0.5); Absolute Eosinophils 0.3 K/uL (0-0.5); Absolute Lymphocytes (CBC) 1.7 K/uL (0.7-4.9); Absolute Monocytes 0.9 K/uL (0.1-1.3); Absolute Neutrophil 8.5 K/uL (1.8-8.0); Basophils % 0.5 % (0-1.3); Hematocrit 39.3 % (36.0-45.0); Hemoglobin 13.5 g/dL (12.0-15.0); Lymphocytes % 14.6 % (15.3-44.8); MCH 30.5 pg (27.0-35.0); MCHC 34.4 g/dL (32.0-36.0); MCV 88.6 fL (80-100); MPV 7.6 fL (7.6-11.3); Monocytes % 7.6 % (3.3-12.3); Neutrophils % 74.3 % (41.7-73.7); Nucleated Red Blood Cells % 0.1 % (0-0); Platelets 266 thou/uL (152-406); RBC Red Blood Cell Count 4.43 M/uL (3.86-4.86); Red Cell Distribution Width 13.2 % (12.1-15.2)
[2024-02-17 22:50] LABS: Albumin 3.6 g/dL (3.4-5.0); Albumin/Globulin Ratio 0.8 (1.1-1.8); Anion Gap 7.8 mEq/L (5.0-15.0); Bilirubin Total 0.3 mg/dL (0.2-1.0); Globulin 4.3 g/dL (2.3-3.5); Protein, Total 7.9 g/dL (6.4-8.2)
[2024-02-17 22:51] LABS: Potassium 3.8 mEq/L (3.5-5.1)
[2024-02-17 23:03] LABS: Monoscreen NEG (NEG)
[2024-02-17 23:22] LABS: SARS-CoV-2 Antigen CONTROL BLUE LINE VIS/BG OK; SARS-CoV-2 Antigen Rapid Res Negative (Negative)
[2024-02-17 23:44] LABS: Specific Gravity 1.012 (1.005-1.030)
[2024-02-17 23:47] LABS: Specific Gravity 1.012 (1.005-1.030); Sqamous Epithelial <5 /HPF (None Seen); Urine Bacteria <20 /HPF (<20); Urine Bilirubin NEGATIVE (Negative); Urine Blood 1+ (Negative); Urine Clarity Clear (Clear); Urine Color Colorless (Yellow); Urine Culture Reflex Order NOT NEEDED; Urine Glucose NEGATIVE (Negative); Urine Ketones NEGATIVE (Negative); Urine Micro Reflex YN NO BILL MICROSCOPIC; Urine Nitrite NEGATIVE (Negative); Urine Protein NEGATIVE (Negative); Urine RBC <5 /HPF (None Seen); Urine Urobilinogen Normal (Normal); Urine WBC <5 /HPF (<5)
[2024-02-18] MEDS ORDERED: ONDANSETRON 4 MG/2 ML VIAL ONE (00:53)
--- NOTE | 2024-02-18 01:06 | RAD REPORT ---
EXAM DESCRIPTION: Chest Single View CLINICAL HISTORY: COUGH COMPARISON: 09/25/2023 FINDINGS: 1 view(s) of the chest. Tubes and lines: None. Cardiomediastinal silhouette: Normal size and contour. Lungs: No consolidation, pneumothorax, or pleural effusion. Bones: No acute osseous abnormality. Upper abdomen: No abnormality identified. IMPRESSION: 1. No acute pulmonary process identified. Electronically signed by: Lazaro Barrientos DO 02/18/2024 01:02 AM CDT 4ZDM Due to temporary technical issues with the PACS/CompareMyFare reporting system, reports are being harsh d by the in-house radiologist without review as a courtesy to ensure prompt reporting the interpreting radiologist is fully responsible for the content of the report. Transcribed Date/Time: 02/18/2024 1:05 AM
--- NOTE | 2024-02-18 01:12 | ER ---
Nurse's Notes [facility] Name: Sue Perdomo Age: 23 yrs Sex: Female : 2000 Arrival Date: 02/17/2024 Time: 21:37 Bed 14 Private MD: Diagnosis: Acute tonsillitis, unspecified;Cough;Abdominal pain, unspecified;Nausea Presentation: 02/16 21:51 Chief complaint: Patient states: I tested positive for mono two days ago, but I feel tm6 like I'm getting worse. My throat hurts, I have a fever off and on, I get dizzy, I have body aches, n/v/d. Coronavirus screen: Client denies travel out of the [place] in the last 14 days. Ebola Screen: Patient negative for fever greater than or equal to 101.5 degrees Fahrenheit, and additional compatible Ebola Virus Disease symptoms Patient denies exposure to infectious person. Patient denies travel to an Ebola-affected area in the 21 days before illness onset. No symptoms or risks identified at this time. Initial Sepsis Screen: Does the patient meet any 2 criteria? HR > 90 bpm. Does the patient have a suspected source of infection? No. Patient's initial sepsis screen is negative. Risk Assessment: Do you want to hurt yourself or someone else? Patient reports no desire to harm self or others. Onset of symptoms was February 15, 2024. 21:51 Method Of Arrival: Ambulatory tm6 21:51 Acuity: PRUDENCIO 3 tm6 Triage Assessment: 21:52 General: Appears in no apparent distress. uncomfortable, ill, Behavior is calm, tm6 cooperative. Pain: Complains of pain in throat Pain currently is 5 out of 10 on a pain scale. Pain began 2-3 days ago. EENT: Reports pain in throat. Neuro: Level of Consciousness is awake, alert, obeys commands, Oriented to person, place, time, situation. Neuro: Reports dizziness, since two days ago. Cardiovascular: Patient's skin is warm and dry. Respiratory: Airway is patent Respiratory effort is even, unlabored, Respiratory pattern is regular, symmetrical. GI: Abdomen is flat, non-distended, Reports diarrhea, nausea, vomiting. : No signs and/or symptoms were reported regarding the genitourinary system. Derm: No signs and/or symptoms reported regarding the dermatologic system. Musculoskeletal: Reports pain in general body aches. 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 - Infectious Disease History:: Denies. - Social history:: Smoking status: Patient denies any tobacco usage or history of. Patient/guardian denies using alcohol. Screenin:[facility] ED Fall Risk Assessment (Adult) History of falling in the last 3 months, rg5 including since admission No falls in past 3 months (0 pts) Confusion or Disorientation No (0 pts) Intoxicated or Sedated No (0 pts) Impaired Gait No (0 pts) Mobility Assist Device Used No (0 pt) Altered Elimination No (0 pt) Score/Fall Risk Level 0 - 2 = Low Risk Oriented to surroundings, Maintained a safe environment, Hourly rounding (assess needs \T\ fall precautionary measures) done. Abuse screen: Denies threats or abuse. Nutritional screening: No deficits noted. Tuberculosis screening: No symptoms or risk factors identified. Assessment: 21:45 General: Appears in no apparent distress. comfortable, Behavior is calm, cooperative, rg5 appropriate for age. 21:45 Pain:. Neuro: Level of Consciousness is awake, alert, obeys commands, Oriented to rg5 person, place, time. Cardiovascular: Denies chest pain, shortness of breath. Respiratory: Reports cough that is dry, Airway is patent Trachea midline Respiratory effort is even, unlabored, Respiratory pattern is regular, symmetrical, Breath sounds are clear bilaterally. GI: No signs and/or symptoms were reported involving the gastrointestinal system. Abdomen is round non-distended, Bowel sounds present X 4 quads. Abd is soft and non tender. : No signs and/or symptoms were reported regarding the genitourinary system. EENT: Throat is reddened Reports pain since THROAT. Derm: Skin is intact, Skin is dry, Skin is normal, Skin temperature is warm. Musculoskeletal: Circulation, motion, and sensation intact. Range of motion: intact in all extremities. Vital Signs: 21:45 BP 130 / 85; Pulse 121; Resp 18; Temp 98.2(O); Pulse Ox 99% on R/A; rg5 21:51 BP 130 / 85; Pulse 120; Resp 19; Temp 98.5(O); Pulse Ox 99% on R/A; MAP 98 mmHg; Weight tm6 63.5 kg; Height 5 ft. 2 in. ; Pain 5/10; 22:00 BP 113 / 79; Pulse 104; Resp 18; Pulse Ox 100% on R/A; rg5 22:36 BP 123 / 71; Pulse 95; Resp 17 S; Pulse Ox 99% ; rg5 23:00 BP 119 / 79; Pulse 90; Resp 17; Pulse Ox 96% on R/A; rg5 02/17 00:00 BP 114 / 80; Pulse 82; Resp 17; Temp 98(O); Pulse Ox 98% on R/A; Pain 0/10; rg5 02/16 21:51 Body Mass Index 25.61 (63.50 kg, 157.48 cm) tm6 21:51 Pain Scale: Adult tm6 02/17 00:00 Pain Scale: Adult rg5 ED Course: 02/16 21:42 Patient arrived in ED. jj6 21:44 Maynor Curiel, LARRY is Primary Nurse. rg5 21:45 Jonh Valentine PA is PHCP. cp 21:45 Nathan Fitzgerald MD is Attending Physician. cp 21:45 Patient has correct armband on for positive identification. Bed in low position. Side rg5 rails up X 1. Adult w/ patient. 21:45 No provider procedures requiring assistance completed. Inserted saline lock: 20 gauge rg5 in right upper arm, using aseptic technique. Blood collected. Flushed with 10 mL NS. 21:52 Triage completed. tm6 21:52 Arm band placed on right wrist. tm6 23:54 CT Abd/Pelvis - IV Contrast Only In Process Unspecified. EDMS 02/17 00:18 XRAY Chest (1 view) In Process Unspecified. EDMS 01:40 IV discontinued, bleeding controlled, No redness/swelling at site. Pressure dressing rg5 applied. 01:41 Provided Education on: post er care. rg5 Administered Medications: 02/16 22:44 Drug: NS 0.9% IV 1000 ml IV at 1000 ml once; to be given as a bolus over 60 minutes rg5 Route: IV; Rate: 1000 ml; Site: right upper arm; 02/17 01:00 Follow up: IV Status: Completed infusion; IV Intake: 1000ml rg5 01:00 Drug: Ondansetron IVP 4 mg IVP once; over 2 minutes Route: IVP; Site: right upper arm; rg5 01:34 Follow up: Response: No adverse reaction rg5 01:10 Drug: Tussionex Pennkinetic ER PO Suspension 5 ml PO once Route: PO; rg5 01:34 Follow up: Response: No adverse reaction rg5 01:15 Drug: Rocephin IV 1 grams IV at calculated rate once; Given slow IV push per pharmacy rg5 instructions Route: IV; Rate: calculated rate; Site: right upper arm; 01:40 Follow up: IV Status: Completed infusion; IV Intake: 10ml rg5 Medication: 02/16 21:45 VIS not applicable for this client. rg5 Intake: 02/17 01:00 IV: 1000ml; Total: 1000ml. rg5 01:40 IV: 10ml; Total: 1010ml. rg5 Outcome: 01:11 Discharge ordered by MD. cp 01:40 Discharged to home ambulatory, rg5 01:40 Condition: stable 01:40 Discharge instructions given to patient, Instructed on discharge instructions, follow up and referral plans. Demonstrated understanding of instructions, follow-up care, medications, Prescriptions given X 4, 01:42 Patient left the ED. rg5 Signatures: Dispatcher [employer] EDMS Jonh Valentine PA PA cp Jeffries, Jennifer jj6 Mikel Weiss RN RN tm6 Maynor Curiel RN RN rg5
--- NOTE | 2024-02-18 01:12 | EDPHYS ---
Physician Documentation [facility] Name: Sue Perdomo Age: 23 yrs Sex: Female : 2000 Arrival Date: 02/17/2024 Time: 21:37 Bed 14 Private MD: ED Physician Nathan Fitzgerald HPI: 02/16 21:55 This 23 yrs old [place] Female presents to ER via Ambulatory with complaints of Sore cp Throat, Fever, BODY ACHES, Tested positive for mono on 02/15/24. 21:55 The patient presents with sore throat. The patient describes throat pain as constant. cp Onset: The symptoms/episode began/occurred 3 day(s) ago. 21:55 Associated signs and symptoms: Pertinent positives: fever, flu-like symptoms, nausea, cp abdominal pain. [employer]PER[employer]: 02/17 01:42 LMP N/A - Irregular menses, Not rg5 Historical: - Allergies: 02/16 21:52 eel; tm6 21:52 steroids; tm6 21:52 walnuts; tm6 - PMHx: 21:52 Anemia; Asthma; eating disorder; Seizure; tm6 - PSHx: 21:52 None; tm6 - Immunization history:: Client reports receiving the 2nd dose of the Covid vaccine, Flu vaccine is up to date. - Infectious Disease History:: Denies. - Social history:: Smoking status: Patient denies any tobacco usage or history of. Patient/guardian denies using alcohol. ROS: 22:00 Constitutional: Positive for body aches, chills, fever, poor PO intake, cp 22:00 Abdomen/GI: Positive for abdominal pain, cp 22:00 Eyes: Negative for injury, pain, redness, and discharge, cp 22:00 ENT: Positive for sore throat, 22:00 Respiratory: Positive for cough, 22:00 Skin: Negative for rash, 22:00 Neuro: Negative for altered mental status, 22:00 All other systems are negative, Exam: 22:05 Constitutional: The patient appears in no acute distress, alert, awake, non-toxic, well cp developed, well nourished, uncomfortable, 22:05 Head/Face: Normocephalic, atraumatic. cp 22:05 Eyes: Periorbital structures: appear normal, Conjunctiva: normal, no exudate, no injection, Sclera: no appreciated abnormality, Lids and lashes: appear normal, bilaterally, 22:05 ENT: External ear(s): are unremarkable, Ear canal(s): are normal, clear, TM's: erythema, that is mild, bilaterally, Nose: is normal, Mouth: Lips: moist, Oral mucosa: moist, Posterior pharynx: Airway: no evidence of obstruction, patent, Tonsils: bilaterally enlarged, with erythema, with exudate, Voice: is normal, 22:05 Neck: ROM/movement: Meningeal signs: are not present, nuchal rigidity, is not appreciated, 22:05 Chest/axilla: Inspection: normal, 22:05 Cardiovascular: Rate: tachycardic, Rhythm: regular, 22:05 Respiratory: the patient does not display signs of respiratory distress, Respirations: normal, no use of accessory muscles, no retractions, labored breathing, is not present, Breath sounds: bronchial sounds, that are mild, are heard diffusely, stridor, is not appreciated, wheezing: is not appreciated, 22:05 Abdomen/GI: Inspection: abdomen appears normal, Bowel sounds: active, all quadrants, Palpation: soft, in all quadrants, moderate abdominal tenderness, in the left upper quadrant, rebound tenderness, is not appreciated, involuntary guarding, is not appreciated, 22:05 Back: CVA tenderness, is absent, 22:05 Skin: no rash present. 22:05 Neuro: Orientation: to person, place \T\ time. Mentation: is normal, Motor: moves all fours, strength is normal, Sensation: is normal, Vital Signs: 21:45 BP 130 / 85; Pulse 121; Resp 18; Temp 98.2(O); Pulse Ox 99% on R/A; rg5 21:51 BP 130 / 85; Pulse 120; Resp 19; Temp 98.5(O); Pulse Ox 99% on R/A; MAP 98 mmHg; Weight tm6 63.5 kg; Height 5 ft. 2 in. ; Pain 5/10; 22:00 BP 113 / 79; Pulse 104; Resp 18; Pulse Ox 100% on R/A; rg5 22:36 BP 123 / 71; Pulse 95; Resp 17 S; Pulse Ox 99% ; rg5 23:00 BP 119 / 79; Pulse 90; Resp 17; Pulse Ox 96% on R/A; rg5 02/17 00:00 BP 114 / 80; Pulse 82; Resp 17; Temp 98(O); Pulse Ox 98% on R/A; Pain 0/10; rg5 02/16 21:51 Body Mass Index 25.61 (63.50 kg, 157.48 cm) tm6 21:51 Pain Scale: Adult tm6 02/17 00:00 Pain Scale: Adult rg5 MDM: 02/16 21:45 Medical Screening Exam initiated 02/17 01:10 Data reviewed: vital signs, nurses notes, lab test result(s), EKG, radiologic studies, cp CT scan, plain films. 01:10 Differential diagnosis: group A strep tonsillitis, laryngitis, mononucleosis, cp peritonsillar abscess retropharyngeal abcess. I considered the following discharge prescriptions or medication management in the emergency department Medications were administered in the Emergency Department. See MAR. Counseling: I had a detailed discussion with the patient and/or guardian regarding the historical points, exam findings, and any diagnostic results supporting the discharge/admit diagnosis, lab results, radiology results, to return to the emergency department if symptoms worsen or persist or if there are any questions or concerns that arise at home. Response to treatment: the patient's symptoms have markedly improved after treatment, and as a result, I will discharge patient. 02/16 21:51 Order name: Urine W/Microscopic (UAM); Complete Time: 00:48 02/17 00:49 Interpretation: Normal except: UBLD 1+. 02/16 21:51 Order name: Test, Urine; Complete Time: 00:48 02/16 21:51 Order name: CBC with Diff; Complete Time: 23:16 02/16 23:16 Interpretation: Normal except: WBC 11.40; CAITIE% 74.3; LYM% 14.6; NEUT A 8.5. 02/16 21:51 Order name: CMP; Complete Time: 23:16 02/16 23:17 Interpretation: Normal except: CL 108; GLOB 4.3; A/G 0.8. 02/16 21:51 Order name: Lipase; Complete Time: 23:16 02/16 21:51 Order name: [place] Screen Profile; Complete Time: 23:16 cp 02/16 21:51 Order name: Strep; Complete Time: 00:49 cp 02/17 00:49 Interpretation: Reviewed. cp 02/16 21:51 Order name: Influenza Screen (a \T\ B); Complete Time: 00:48 cp 02/16 21:51 Order name: SARS RAPID; Complete Time: 00:48 cp 02/16 23:25 Order name: Throat Culture EDMS 02/16 21:51 Order name: CT Abd/Pelvis - IV Contrast Only cp 02/16 23:59 Order name: XRAY Chest (1 view); Complete Time: 01:10 cp 02/16 21:51 Order name: Saline Lock; Complete Time: 22:44 cp 02/16 21:51 Order name: Labs collected and sent; Complete Time: 22:26 cp Administered Medications: 02/16 22:44 Drug: NS 0.9% IV 1000 ml IV at 1000 ml once; to be given as a bolus over 60 minutes rg5 Route: IV; Rate: 1000 ml; Site: right upper arm; 02/17 01:00 Follow up: IV Status: Completed infusion; IV Intake: 1000ml rg5 01:00 Drug: Ondansetron IVP 4 mg IVP once; over 2 minutes Route: IVP; Site: right upper arm; rg5 01:34 Follow up: Response: No adverse reaction rg5 01:10 Drug: Tussionex Pennkinetic ER PO Suspension 5 ml PO once Route: PO; rg5 01:34 Follow up: Response: No adverse reaction rg5 01:15 Drug: Rocephin IV 1 grams IV at calculated rate once; Given slow IV push per pharmacy rg5 instructions Route: IV; Rate: calculated rate; Site: right upper arm; 01:40 Follow up: IV Status: Completed infusion; IV Intake: 10ml rg5 Disposition: 07:18 Co-signature as Attending Physician, Nathan Fitzgerald MD I agree with the assessment sp4 and plan of care. I reviewed the patient's care provided by the Advanced Practice Provider and agree with the diagnosis and treatment plan. Disposition Summary: 02/18/24 01:11 Discharge Ordered Notes: Location: Home cp Problem: new cp Symptoms: have improved cp Condition: Stable cp Diagnosis - Acute tonsillitis, unspecified cp - Cough cp - Abdominal pain, unspecified cp - Nausea cp Followup: cp - With: Private Physician - When: 2 - 3 days - Reason: Worsening of condition Discharge Instructions: - Discharge Summary Sheet cp - Abdominal Pain, Adult cp - Tonsillitis cp - Cough, Adult cp Forms: - Medication Reconciliation Form cp - Antibiotic Education cp - Prescription Opioid Use cp - Patient Portal Instructions cp - Leadership Thank You Letter cp Prescriptions: - Bromfed DM 2-30-10 mg/5 mL Oral syrup - administer 10 milliliter ORAL route 4 times per day as needed for cold cp symptoms; 240 milliliter; Refills: 0, Product Selection Permitted - Cephalexin 500 mg Oral Capsule - take 1 capsule ORAL route every 8 hours for 10 days; 30 capsule; Refills: 0, cp Product Selection Permitted - Ibuprofen 600 mg Oral Tablet - take 1 tablet ORAL route every 6 hours As needed take with food; 30 tablet; cp Refills: 0, Product Selection Permitted - Zofran 4 mg Oral Tablet - take 1 tablet ORAL route every 12 hours As needed; 20 tablet; Refills: 0, cp Product Selection Permitted Signatures: Dispatcher [employer] EDMS Jonh Valentine PA PA cp Nathan Fitzgerald MD MD sp4 Mikel Weiss RN RN tm6 Maynor Curiel RN RN rg5
[2024-02-18] MEDS ORDERED: HYDROCODONE/CHLORPHEN 5 ML/OSYR ONE (01:20)
[2024-02-18] MEDS ORDERED: CEFTRIAXONE 1000 MG/VIAL ONE (01:36)
--- NOTE | 2024-02-18 06:26 | RAD REPORT ---
EXAM DESCRIPTION: Abdomen Pelvis W Contrast CLINICAL HISTORY: left upper abdomen pain COMPARISON: None Available. TECHNIQUE: CT of the abdomen and pelvis performed following IV administration of iodinated contrast . This exam was performed according to our departmental dose-optimization program, which includes automated exposure control, adjustment of the mA and/or kV according to patient size and/or use of it erative reconstruction technique. FINDINGS: Lung Bases: The visualized lung bases are clear. Bones: No acute osseous abnormality identified. Abdomen: Liver: The liver has normal size and density. Gallbladder: No calcified gallstones. Spleen, Pancreas, and Adrenal Glands: The spleen, pancreas, and adrenal glands are unremarkable. Kidneys: No hydronephrosis or obstructing calculus. Vasculature: The aorta and IVC have normal caliber and position. The portal vein is patent. The pro ximal visceral and renal arteries are patent. Stomach: The stomach and duodenum have normal course. Other: No free intraperitoneal air. Shotty likely reactive mesenteric lymph nodes. Pelvis: Bladder: Circumferential wall thickening of the urinary bladder. Bowel: No dilated loops of large or small bowel. Mild wall thickening of the proximal small bowel. Appendix: Normal appendix. Pelvis: Uterus is not enlarged. IMPRESSION: 1. Mild wall thickening of the proximal small bowel. These findings could be seen with nonspecific enteritis. 2. Circumferential wall thickening of the urinary bladder. This could be seen with cystitis. Electronically signed by: Lazaro Barrientos DO 02/18/2024 01:02 AM CDT 4ZDM Due to temporary technical issues with the PACS/WayConnected reporting system, reports are being harsh d by the in-house radiologist without review as a courtesy to ensure prompt reporting the interpreting radiologist is fully responsible for the content of the report. Transcribed Date/Time: 02/18/2024 6:26 AM
[2024-02-18 08:08] VITALS: BP 114/80; TEMP 98; O2SAT 98
== END 2024-02-18 01:42 | disposition home or self-care (01) ==
LOC: ER 21:37
DX: R05.9 Cough, unspecified (principal); J03.90 Acute tonsillitis, unspecified; R10.12 Left upper quadrant pain; R11.0 Nausea; Z11.52 Encounter for screening for COVID-19
CPT/HCPCS: 96365; 96361; 87070; 85025; 81001; 36415; 86308; 81025; 87081; 83690; 80053; 87804 ×2; 74177; 71045; 96375; 99284; 87811; Q9967; J2405; J7030; J0696